=== PATIENT | male | born 1965 | race Caucasian/White ===

== ENCOUNTER 2019-02-17 19:51 | Inpatient (IN) | payer OTHER, SELFPAY ==
[2019-02-17 19:58] VITALS: BP 146/94; PULSE 90; RESP 18; TEMP 36.9; O2SAT 99; BMI 21.2
[2019-02-17] MEDS: ONDANSETRON 4 MG/2 ML INJ IV ×2 (21:01→22:47)
[2019-02-17 21:04] LABS: Add Manual Diff / Slide Review NO; Basophils Absolute Auto 100 /uL (0-100); Basophils Percent Auto 0.7 % (0-2); Eosinophils Absolute Auto 0 /uL (0-450); Eosinophils Percent Auto 0.6 % (2-4); Hematocrit 44.3 % (41-53); Hemoglobin 15.2 g/dL (13.5-17.5); Lymphocytes Absolute Auto 700 /uL (1100-4500); Lymphocytes Percent Auto 10.5 % (25-40); Mean Corpuscular HGB Conc 34.4 % (30-36); Mean Corpuscular Hemoglobin 30.9 PG (26-34); Mean Corpuscular Volume 89.7 fL (80-100); Monocytes Absolute Auto 800 /uL (0-900); Monocytes Percent Auto 11.5 % (3-14); Neutrophils Absolute Auto 5400 /uL (1500-7000); Neutrophils Percent Auto 76.7 % (50-75); Platelet Count 234 X10^3/uL (150-400); Red Blood Cell Count 4.94 X10^6/uL (4.5-5.9); White Blood Cell Count 7.1 X10^3/uL (4.5-11.0)
[2019-02-17 21:14] LABS: INR 1.2 (0.9-1.3); Prothrombin Time 13.6 SECONDS (10.1-12.7)
[2019-02-17 21:17] LABS: PTT Partial Thromboplastin Tim 33 SECONDS (26.4-36.2)
[2019-02-17 21:19] LABS: Alanine Aminotransferase 12 IU/L (21-72); Albumin 3.8 g/dL (3.5-5.0); Albumin Globulin Ratio 1.3 (1.0-2.8); Alkaline Phosphatase 99 U/L (38-126); Aspartate Aminotransferase 16 IU/L (17-59); BUN Creatinine Ratio 18.6 (6-22); Bilirubin Total 0.6 mg/dL (0.2-1.3); Blood Urea Nitrogen 13 mg/dL (9-20); Calcium 8.8 mg/dL (8.4-10.2); Carbon Dioxide 25 mmol/L (22-32); Chloride 97 mmol/L (98-107); Estimated Glomerular Filt Rate > 60.0 mL/min (>60); Globulin 2.9 g/dL (1.7-4.1); Glucose 100 mg/dL (70-100); HEMOLYSIS < 15 (0-50); Lipase 14 U/L (23-300); Potassium 3.5 mmol/L (3.4-5.1); Sodium 132 mmol/L (137-145); Total Protein 6.7 g/dL (6.3-8.2)
--- NOTE | 2019-02-17 22:03 | ED.ABDPAIN ---
HPI - Abdominal Pain General Chief Complaint: Abdominal Pain Stated Complaint: NOT WELL, SEVERE ABDOMINAL PAIN Time Seen by Provider: 02/17/19 20:00 Source: patient and family Mode of arrival: ambulatory Limitations: no limitations History of Present Illness HPI narrative: 54-year-old male nonsmoker with benign medical history presents with his significant other and a chief complaint of about a month and a half of gradually worsening generalized abdominal pain with decreased appetite an unplanned weight loss of 15 lb. He has increasing frequency and severity of pain which is generalized but more severe in the lower portions of his abdomen. This pain is worse with motion and improves with rest. He denies any fever or shaking chills. He has nausea but no significant vomiting. He states he is fairly convinced he has diverticulitis as he has a very strong history in his family though he has never had of colonoscopy MD complaint: abdominal pain Onset (ago): week(s) Related Data Home Medications Medication Instructions Recorded Confirmed No Known Home Medications 02/18/19 02/18/19 Allergies Allergy/AdvReac Type Severity Reaction Status Date / Time Penicillins Allergy Unknown Verified 02/17/19 20:04 Review of Systems Constitutional Denies chills, Denies fever(s), Denies lethargy and Denies weakness Eyes Denies change in vision, Denies eye discharge, Denies irritation and Denies loss of vision ENT Ears, Nose, Mouth, and Throat: Denies change in voice, Denies neck pain and Denies sore throat Cardiovascular Denies chest pain, Denies irregular heart rhythm, Denies lightheadedness, Denies palpitations, Denies dyspnea, Denies dyspnea on exertion and Denies orthopnea Respiratory Denies cough, Denies dyspnea, Denies dyspnea on exertion and Denies wheezing Gastrointestinal Gastrointestinal: Reports abdominal pain, Reports change in bowel habits, Denies diarrhea, Reports nausea and Denies vomiting Genitourinary Denies hematuria, Denies flank pain, Denies urinary incontinence and Denies urinary urgency Musculoskeletal Denies neck pain Integumentary/Breasts Denies pruritus, Denies erythema, Denies rash and Denies wounds Neurologic Denies confusion, Denies loss of vision and Denies weakness Psychiatric Denies anxiety, Denies confusion, Denies depression, Denies homicidal ideation and Denies suicidal ideation Endocrine Denies palpitations Hematologic/Lymphatic Denies easy bruising Allergic/Immunologic Denies wheezing PFSH Medical History Abnormal weight loss (Acute) Social History household members: spouse Smoking Status: Former smoker alcohol intake: former Social History household members: spouse Smoking Status: Former smoker alcohol intake: former Exam Narrative Exam Narrative: GENERAL: [54] year old patient appears stated age. Thin, unwell in appearance HEAD: Atraumatic. Normocephalic. EYES: Pupils equal round and reactive. Extraocular motions intact. No scleral icterus. No injection or drainage. ENT: Nose without bleeding, purulent drainage. Throat without erythema, tonsillar hypertrophy or exudate. Airway patent. NECK: Trachea midline. Non tender CARDIOVASCULAR: Regular rate and rhythm without murmurs, gallops, or rubs. RESPIRATORY: Clear to auscultation. Breath sounds equal bilaterally. No wheezes, rales, or rhonchi. GASTROINTESTINAL: Abdomen is generally tender and distended, questionable left lower quadrant mass EXTREMITIES: No edema or joint tenderness. BACK: Nontender without deformity or crepitance. No flank tenderness. NEURO: AOx3. SKIN: No rash or erythema of visible areas Initial Vital Signs Initial Vital Signs: Vital Signs Temperature 98.4 F 02/17/19 19:58 Pulse Rate 90 02/17/19 19:58 Respiratory Rate 18 02/17/19 19:58 Blood Pressure 146/94 H 02/17/19 19:58 Pulse Oximetry 99 02/17/19 19:58 Course Orders Ordered: ED Orders 02/17/19 22:06 CT abdomen pelvis w con Stat 02/18/19 Carcinoembryonic Antigen Stat 02/18/19 00:52 XR chest 1V Urgent 02/18/19 01:21 Consult to PICC Line RN Routine 02/18/19 01:22 Consult to Wound Care Routine 02/18/19 01:32 Education, smoking cessation ONGOING 02/18/19 02:42 Education, smoking cessation ONGOING Acetaminophen (Tylenol) 650 mg PO Q6HR PENDING SALE TO [facility] Last Admin: 02/18/19 06:15 Dose: Not Given Heparin Sodium (Porcine) (Heparin) 5,000 unit SUBCUT Q8HR VIOLETTE Last Admin: 02/18/19 06:24 Dose: 5,000 unit Hydromorphone HCl (Dilaudid) 0.5 mg IV Q4H PRN PRN Reason: Pain, Severe (7-10) Last Admin: 02/18/19 06:19 Dose: 0.5 mg Admin: 02/18/19 02:17 Dose: 0.5 mg Dextrose/Sodium Chloride (Dextrose 5%-0.9% Ns) 1,000 mls @ 100 mls/hr IV CONT VIOLETTE Last Admin: 02/18/19 02:25 Dose: 100 mls/hr Metronidazole (Flagyl) 500 mg in 100 mls @ 100 mls/hr IV Q8H VIOLETTE Ceftriaxone Sodium/Dextrose (Rocephin) 2 gm in 50 mls @ 100 mls/hr IV Q24H PENDING SALE TO [facility] Last Infusion: 02/18/19 04:44 Dose: 100 mls/hr Infusion: 02/18/19 02:27 Dose: 100 mls/hr Admin: 02/18/19 02:00 Dose: 100 mls/hr Ondansetron HCl (Zofran) 4 mg IV Q4HR PENDING SALE TO [facility] Last Admin: 02/18/19 04:56 Dose: 4 mg Discontinued Medications Sodium Chloride (Normal Saline 0.9%) 1,000 mls @ 1,000 mls/hr IV BOLUS ONE Stop: 02/17/19 23:23 Last Infusion: 02/18/19 01:45 Dose: 0 mls/hr Infusion: 02/18/19 00:00 Dose: 1,000 mls/hr Infusion: 02/17/19 22:48 Dose: 0 mls/hr Admin: 02/17/19 22:47 Dose: 1,000 mls/hr Metronidazole (Flagyl) 500 mg in 100 mls @ 100 mls/hr IV NOW ONE Stop: 02/18/19 01:45 Last Infusion: 02/18/19 04:46 Dose: 100 mls/hr Admin: 02/18/19 02:49 Dose: 100 mls/hr Ceftriaxone Sodium/Dextrose (Rocephin) 2 gm in 50 mls @ 100 mls/hr IV NOW ONE Stop: 02/18/19 01:15 Last Infusion: 02/18/19 04:44 Dose: 100 mls/hr Infusion: 02/18/19 01:55 Dose: 0 mls/hr Admin: 02/18/19 01:26 Dose: 100 mls/hr Ondansetron HCl (Zofran) 4 mg IV NOW ONE Stop: 02/17/19 20:58 Last Admin: 02/17/19 21:01 Dose: 4 mg Ondansetron HCl (Zofran) 4 mg IV NOW ONE Stop: 02/17/19 22:25 Last Admin: 02/17/19 22:47 Dose: 4 mg Pantoprazole Sodium (Protonix) 40 mg IV NOW ONE Stop: 02/17/19 22:25 Last Admin: 02/17/19 22:47 Dose: 40 mg Consultations Consultation #1: Called to general surgery upon receipt of imaging, he will see and evaluate patient at the bedside Vital Signs - 8 hr 02/18/19 01:30 02/18/19 02:05 02/18/19 06:00 Temperature 99.2 F 99.5 F Pulse Rate 81 76 88 Respiratory Rate 16 20 20 Blood Pressure 145/97 H 140/81 Blood Pressure [Right Arm] 155/101 H Pulse Oximetry 98 98 97 MDM - Abdominal Pain Lab Data Result diagrams: 02/17/19 20:55 02/17/19 20:55 Lab Results 02/17/19 02/17/19 02/17/19 Range/Units 20:55 20:55 20:55 WBC 7.1 (4.5-11.0) X10^3/uL RBC 4.94 (4.5-5.9) X10^6/uL Hgb 15.2 (13.5-17.5) g/dL Hct 44.3 (41-53) % MCV 89.7 (80-100) fL MCH 30.9 (26-34) PG MCHC 34.4 (30-36) % RDW 13.0 (11.6-14.8) % Plt Count 234 (150-400) X10^3/uL Neut % (Auto) 76.7 H (50-75) % Lymph % (Auto) 10.5 L (25-40) % [place] % (Auto) 11.5 (3-14) % Eos % (Auto) 0.6 L (2-4) % Baso % (Auto) 0.7 (0-2) % Neut # (Auto) 5400 (5414-3790) /uL Lymph # (Auto) 700 L (5713-6440) /uL [place] # (Auto) 800 (0-900) /uL Eos # (Auto) 0 (0-450) /uL Baso # (Auto) 100 (0-100) /uL PT 13.6 H (10.1-12.7) SECONDS INR 1.2 (0.9-1.3) APTT 33 (26.4-36.2) SECONDS Sodium 132 L (137-145) mmol/L Potassium 3.5 (3.4-5.1) mmol/L Chloride 97 L (98-107) mmol/L Carbon Dioxide 25 (22-32) mmol/L BUN 13 (9-20) mg/dL Creatinine 0.70 (0.66-1.25) mg/dL Estimated GFR > 60.0 (>60) mL/min BUN/Creatinine Ratio 18.6 (6-22) Glucose 100 (70-100) mg/dL Calcium 8.8 (8.4-10.2) mg/dL Total Bilirubin 0.6 (0.2-1.3) mg/dL AST 16 L (17-59) IU/L ALT 12 L (21-72) IU/L Alkaline Phosphatase 99 (38-126) U/L Total Protein 6.7 (6.3-8.2) g/dL Albumin 3.8 (3.5-5.0) g/dL Globulin 2.9 (1.7-4.1) g/dL Albumin/Globulin Ratio 1.3 (1.0-2.8) Lipase 14 L (23-300) U/L Carcinoembryonic Ag (0.1-3.0) ng/mL 02/17/19 Range/Units 20:55 WBC (4.5-11.0) X10^3/uL RBC (4.5-5.9) X10^6/uL Hgb (13.5-17.5) g/dL Hct (41-53) % MCV (80-100) fL MCH (26-34) PG MCHC (30-36) % RDW (11.6-14.8) % Plt Count (150-400) X10^3/uL Neut % (Auto) (50-75) % Lymph % (Auto) (25-40) % [place] % (Auto) (3-14) % Eos % (Auto) (2-4) % Baso % (Auto) (0-2) % Neut # (Auto) (7572-1482) /uL Lymph # (Auto) (1112-1209) /uL [place] # (Auto) (0-900) /uL Eos # (Auto) (0-450) /uL Baso # (Auto) (0-100) /uL PT (10.1-12.7) SECONDS INR (0.9-1.3) APTT (26.4-36.2) SECONDS Sodium (137-145) mmol/L Potassium (3.4-5.1) mmol/L Chloride (98-107) mmol/L Carbon Dioxide (22-32) mmol/L BUN (9-20) mg/dL Creatinine (0.66-1.25) mg/dL Estimated GFR (>60) mL/min BUN/Creatinine Ratio (6-22) Glucose (70-100) mg/dL Calcium (8.4-10.2) mg/dL Total Bilirubin (0.2-1.3) mg/dL AST (17-59) IU/L ALT (21-72) IU/L Alkaline Phosphatase (38-126) U/L Total Protein (6.3-8.2) g/dL Albumin (3.5-5.0) g/dL Globulin (1.7-4.1) g/dL Albumin/Globulin Ratio (1.0-2.8) Lipase (23-300) U/L Carcinoembryonic Ag 4.5 H (0.1-3.0) ng/mL Point of care testing: Point of Care Testing Glucose POC 110 Discharge Plan Departure Patient Disposition: Admitted As Inpatient Clinical Impression: Large bowel obstruction Discharge Date/Time: 02/18/19 02:05 Interventions: ED Discharge Assessment Last Done: 02/18/19 02:08 Admit Date/Time: 02/18/19 00:19 Admit Provider: Cal Tavera
--- NOTE | 2019-02-17 22:06 | DI.CT.S_ITS ---
PROCEDURE: CT ABDOMEN PELVIS W CON INDICATIONS: severe abdominal pain TECHNIQUE: After the administration of intravenous contrast, 5 mm thick sections acquired from the diaphragm to the symphysis. 5 mm coronal and sagittal reformats were acquired. For radiation dose reduction, the following was used: automated exposure control, adjustment of mA and/or kV according to patient size. COMPARISON: None. FINDINGS: Image quality: Excellent. ABDOMEN: Lung bases: Lung bases are clear. Heart size is normal. Solid organs: Liver is normal in size and enhancement. Gallbladder is unremarkable. Biliary system is non dilated. Pancreas enhances normally. Spleen is normal in size and enhancement. No adrenal nodules. Kidneys demonstrate normal size and enhancement, without hydronephrosis. Peritoneum and bowel: Diffusely dilated loops of fluid filled bowel involving both small bowel and colon. There is a short segment of mild circumferential small bowel wall thickening noted in the upper abdomen just to the left of midline (Professor Of Biochemistry image seen on coronal image 19, series 4). There is also a segment of moderate circumferential wall thickening of the distal sigmoid colon near the rectosigmoid junction. A business development representative image is seen on axial image 72, series 2. The colon is dilated proximal to this segment and decompressed distally. Additionally, the appendix is mildly dilated measuring 1.1 cm in diameter with surrounding periappendiceal fluid. No evidence for extraluminal free air or organized fluid collection. Nodes and vessels: No retroperitoneal or mesenteric adenopathy by size criteria. Aorta and inferior vena cava are normal in size. Miscellaneous: No ventral hernias. PELVIS: Genitourinary: Bladder wall thickness is normal. Miscellaneous: No inguinal hernias or adenopathy. Bones: No suspicious bony lesions. No vertebral body compression fractures. IMPRESSION: 1. High grade distal bowel obstruction likely at the level of the distal sigmoid colon where there is a segment of luminal narrowing secondary to moderately thickened sigmoid colon that appears slightly irregular but circumferentially thickened. There is associated moderate colonic and small bowel dilatation. This segment of presumed distal sigmoid colon is in close proximity to the reproductive organs. However, sigmoid colon etiology is favored. Findings may be related to acute inflammatory/infectious process although underlying neoplastic etiology not excluded. Recommend direct visualization after resolution of acute symptoms. 2. Short segment of mildly thickened small bowel in the upper abdomen possibly related to peristalsis and incomplete distention versus focal thickening from inflammatory/infectious etiology. 3. The appendix is dilated with periappendiceal fluid. Concurrent acute appendicitis not excluded. Findings were discussed with Kaye Dasilva RN at 2338 hours PST by the overnight radiologist. No significant discrepancy with the night shift supervisor radiology preliminary report. Dictated by: Godfrey Jenkins M.D. on 02/18/2019 at 8:33 Approved by: Godfrey Jenkins M.D. on 02/18/2019 at 9:16
[2019-02-17 22:30] VITALS: BP 145/91; PULSE 76; O2SAT 96
[2019-02-17] MEDS: SODIUM CHLORIDE 0.9% 1,000 ML 1000 ML IV (22:47)
[2019-02-17] MEDS: PANTOPRAZOLE 40 MG VIAL IV (22:47)
[2019-02-18] VITALS (25 sets, daily range): BP systolic 134–157; BP diastolic 70–101; PULSE 73–115; RESP 13–20; TEMP 36.5–37.5; O2SAT 93–98; BMI 21.2; BMI 19.3
--- NOTE | 2019-02-18 00:25 | PC.NURSE ---
surgeon at bedside.
--- NOTE | 2019-02-18 00:52 | DI.RAD.S_ITS ---
PROCEDURE: XR CHEST 1V INDICATIONS: NG placement TECHNIQUE: One view of the chest was acquired. COMPARISON: None. FINDINGS: Surgical changes and devices: Esophagogastric tube positioning normal. Lungs and pleura: Lungs are clear. No pleural effusions or pneumothorax. Mediastinum: Mediastinal contours appear normal. Heart size is normal. Bones and chest wall: No suspicious bony lesions. Overlying soft tissues appear unremarkable. IMPRESSION: Esophagogastric tube positioning normal, small bowel distention is present over the visualized abdomen included on this study. No chest abnormality seen. Dictated by: Royal Bar M.D. on 02/18/2019 at 8:59 Approved by: Royal Bar M.D. on 02/18/2019 at 8:59
--- NOTE | 2019-02-18 00:53 | PM.HP.1 ---
History of Present Illness Date Patient Seen: 02/18/19 Time Patient Seen: 00:56 Chief complaint: NOT WELL, SEVERE ABDOMINAL PAIN Narrative: 54-year-old man with strong family history of diverticular disease, no family history of colorectal cancers, never had a colonoscopy in the past -he now presents with 6 weeks of intermittent but progressive mid abdominal pain with nausea and vomiting. Typically the pain would last several days and then spontaneously remit however patient never felt fully well. There is associated anorexia and unintentional weight loss of 15-20 lb. In this setting 8 days ago patient began to have significant worsening of his mid abdominal pain with again nausea and vomiting. He became progressively more distended his bowel movements turned from thin caliber formed stool to liquid stool. This evening he presented to the hospital with worsening of his pain, worsening fatigue, as well as significant nausea. Patient denies having blood in his stool at any time in the recent past. He has not had a liquid bowel movement in a day, not passed flatus in several days. In the emergency department he was found to have a white blood cell count of 7.1, hematocrit of 44.2, creatinine of 0.7, CT scan of the abdomen and pelvis demonstrated a long sigmoid segment of masslike colonic thickening, adjacent diverticulosis, significant dilation of the large bowel without market cecal dilation. The appendix is thin walled but with dilation to 1 cm. Overall patient feels poor Patient History Medical History (Updated 02/18/19 @ 01:02 by Cal Tavera MD) Abnormal weight loss (Acute) Family & Social History Social History: Patient lives on [facility] Occasionally smokes marijuana No tobacco smoke No alcohol Mother and father with history of diverticulosis Meds Allergies Allergy/AdvReac Type Severity Reaction Status Date / Time Penicillins Allergy Unknown Verified 02/17/19 20:04 Review of Systems Constitutional Constitutional: Denies fever(s) Eyes Eyes: Denies bulging eyes ENT Ears, Nose, Mouth, and Throat: No lip swelling Cardiovascular Cardiovascular: Denies generalize swelling Respiratory Respiratory: Denies stridor Gastrointestinal Gastrointestinal: Denies coffee ground emesis Musculoskeletal Musculoskeletal: Denies loss of height Integumentary/Breasts Skin/Breast: Denies wounds Neurologic Neurologic: Denies abnormal speech and Denies confusion Psychiatric Psychiatric: Denies confusion Endocrine Endocrine: Denies deepening of the voice Hematologic/Lymphatic Hematologic/Lymphatic: Denies lymphadenopathy Allergic/Immunologic Allergic/Immunologic: Denies lip swelling Exam Vital Signs (past 8 hours): - 02/17/19 19:58 02/17/19 22:30 Temperature 98.4 F Pulse Rate 90 76 Respiratory Rate 18 Blood Pressure 146/94 H Blood Pressure [Right Arm] 145/91 H Pulse Oximetry 99 96 Oxygen Delivery Method Room Air Narrative Exam Narrative: Notably thin man with temporal wasting, thenar eminence wasting Const General: cooperative Orientation: alert HENME Head: normal to inspection Nose: nares normal Mouth: oral mucosae normal and lip normal Eyes Eyelids: eyelids normal Conjunctivae: conjunctivae normal Sclera: sclerae normal Neck Neck: supple and other (No thyromegally) Chest Chest: other (LCTAB , regular respiratory effort) Cardio Rhythm: regular rhythm Heart Sounds: S1 normal, S2 normal, no gallops, no murmurs and no rubs GI Other: Abdomen is notably distended, no surgical scars, large to high-pitched bowel sounds, tympanitic. Nontender to percussion, tender over left lower quadrant, minimally tender over right side of abdomen. I can subtly detect a left lower quadrant mass Skin General: no rashes or lesions noted Neuro General: alert and awake Psych Appearance: grossly normal Affect: normal affect Objective Labs Result Diagrams: 02/17/19 20:55 02/17/19 20:55 Labs: Laboratory Results - last 24 hr 02/17/19 02/17/19 02/17/19 20:55 20:55 20:55 WBC 7.1 RBC 4.94 Hgb 15.2 Hct 44.3 MCV 89.7 MCH 30.9 MCHC 34.4 RDW 13.0 Plt Count 234 Neut % (Auto) 76.7 H Lymph % (Auto) 10.5 L [place] % (Auto) 11.5 Eos % (Auto) 0.6 L Baso % (Auto) 0.7 Neut # (Auto) 5400 Lymph # (Auto) 700 L [place] # (Auto) 800 Eos # (Auto) 0 Baso # (Auto) 100 PT 13.6 H INR 1.2 APTT 33 Sodium 132 L Potassium 3.5 Chloride 97 L Carbon Dioxide 25 BUN 13 Creatinine 0.70 Estimated GFR > 60.0 BUN/Creatinine Ratio 18.6 Glucose 100 Calcium 8.8 Total Bilirubin 0.6 AST 16 L ALT 12 L Alkaline Phosphatase 99 Total Protein 6.7 Albumin 3.8 Globulin 2.9 Albumin/Globulin Ratio 1.3 Lipase 14 L Assessment & Plan Assessment & Plan narrative: 54-year-old man presents with large bowel obstruction from diverticular stricture versus is colorectal cancer -I favor the former given the patient's strong family history, on CT scan the long segment of apparently inflamed colon. On CT scan his cecum is not significantly dilated and he does not have significant right lower quadrant tenderness -for this reason he is at low risk of cecal perforation in the near future. His obstruction appears to be near complete however. Appendiceal dilation without wall thickening likely a consequence of obstruction rather than acute appendicitis Plan will be to workup obstructing sigmoid colon mass with flexible sigmoidoscopy followed by resection this admission Plan: Admit to surgery multi Modal pain control NG tube decompression Ceftriaxone/metronidazole for any component of acute diverticulitis PICC line anticipate will need TPN in the setting of severe protein calorie malnutrition and projected length of hospitalization Endoscopy tomorrow -consent obtained
[2019-02-18] MEDS: CEFTRIAXONE 2 GM/50 ML FROZ.PIGGY IV ×2 (01:26→02:00)
[2019-02-18 02:05] LABS: Carcinoembryonic Antigen 4.5 ng/mL (0.1-3.0)
[2019-02-18] MEDS: HYDROMORPHONE 0.5 MG INJ IV ×3 (02:17→10:16)
[2019-02-18] MEDS: DEXTROSE 5%-0.9% NS 1,000 ML 100 ML IV (02:25)
[2019-02-18] MEDS: metroNIDAZOLE 500 MG/100 ML PIGGYBACK 100 MG IV ×4 (02:49→20:14)
--- NOTE | 2019-02-18 03:52 | PC.ADMIT ---
Safe hand off from [facility]. Pt arrived via stretcher on unit at 0205. Pt denies nausea, but has had intermittent abdominal pain. Pt was medicated w/ dilaudid 0.5mg at 0215. Pt bowel tones are hyperactive, his abdomen is bloated and he has constipation and cramping and isn't passing flatus. Pt's VSS, lung sound are clear. Pt has NG tube in right nare, drainage is greenish and clear. Pt was educated about call light and it is within reach. Onel [address] RD Admission Note: The patient,CRISTOPHER SRINIVASAN,54 y/o, was given written information regarding hospital policies, unit procedures and contact persons. Patient's smoking status: Former smoker. Vital Signs - 8 hr 02/17/19 19:58 02/17/19 22:30 02/18/19 01:30 Temperature 98.4 F Pulse Rate 90 76 81 Respiratory Rate 18 16 Blood Pressure 146/94 H Blood Pressure [Right Arm] 145/91 H 155/101 H Pulse Oximetry 99 96 98 02/18/19 02:05 Temperature 99.2 F Pulse Rate 76 Respiratory Rate 20 Blood Pressure 145/97 H Blood Pressure [Right Arm] Pulse Oximetry 98
[2019-02-18] MEDS: ONDANSETRON 4 MG/2 ML INJ IV (04:56)
[2019-02-18] MEDS: HEPARIN 5,000 UNIT/ML VIAL 5000 UNIT SUBCUT (06:24)
--- NOTE | 2019-02-18 06:47 | ED_ITS ---
HPI - Abdominal Pain General Chief Complaint: Abdominal Pain Stated Complaint: NOT WELL, SEVERE ABDOMINAL PAIN Time Seen by Provider: 02/17/19 20:00 Source: patient and family Mode of arrival: ambulatory Limitations: no limitations History of Present Illness HPI narrative: 54-year-old male nonsmoker with benign medical history presents with his significant other and a chief complaint of about a month and a half of gradually worsening generalized abdominal pain with decreased appetite an unplanned weight loss of 15 lb. He has increasing frequency and severity of pain which is generalized but more severe in the lower portions of his abdomen. This pain is worse with motion and improves with rest. He denies any fever or shaking chills. He has nausea but no significant vomiting. He states he is fairly convinced he has diverticulitis as he has a very strong history in his family though he has never had of colonoscopy MD complaint: abdominal pain Onset (ago): week(s) Related Data Home Medications Medication Instructions Recorded Confirmed No Known Home Medications 02/18/19 02/18/19 Allergies Allergy/AdvReac Type Severity Reaction Status Date / Time Penicillins Allergy Unknown Verified 02/17/19 20:04 Review of Systems Constitutional Denies chills, Denies fever(s), Denies lethargy and Denies weakness Eyes Denies change in vision, Denies eye discharge, Denies irritation and Denies loss of vision ENT Ears, Nose, Mouth, and Throat: Denies change in voice, Denies neck pain and Denies sore throat Cardiovascular Denies chest pain, Denies irregular heart rhythm, Denies lightheadedness, Denies palpitations, Denies dyspnea, Denies dyspnea on exertion and Denies orthopnea Respiratory Denies cough, Denies dyspnea, Denies dyspnea on exertion and Denies wheezing Gastrointestinal Gastrointestinal: Reports abdominal pain, Reports change in bowel habits, Denies diarrhea, Reports nausea and Denies vomiting Genitourinary Denies hematuria, Denies flank pain, Denies urinary incontinence and Denies urinary urgency Musculoskeletal Denies neck pain Integumentary/Breasts Denies pruritus, Denies erythema, Denies rash and Denies wounds Neurologic Denies confusion, Denies loss of vision and Denies weakness Psychiatric Denies anxiety, Denies confusion, Denies depression, Denies homicidal ideation and Denies suicidal ideation Endocrine Denies palpitations Hematologic/Lymphatic Denies easy bruising Allergic/Immunologic Denies wheezing PFSH Medical History Abnormal weight loss (Acute) Social History household members: spouse Smoking Status: Former smoker alcohol intake: former Social History household members: spouse Smoking Status: Former smoker alcohol intake: former Exam Narrative Exam Narrative: GENERAL: [54] year old patient appears stated age. Thin, unwell in appearance HEAD: Atraumatic. Normocephalic. EYES: Pupils equal round and reactive. Extraocular motions intact. No scleral icterus. No injection or drainage. ENT: Nose without bleeding, purulent drainage. Throat without erythema, tonsillar hypertrophy or exudate. Airway patent. NECK: Trachea midline. Non tender CARDIOVASCULAR: Regular rate and rhythm without murmurs, gallops, or rubs. RESPIRATORY: Clear to auscultation. Breath sounds equal bilaterally. No wheezes, rales, or rhonchi. GASTROINTESTINAL: Abdomen is generally tender and distended, questionable left lower quadrant mass EXTREMITIES: No edema or joint tenderness. BACK: Nontender without deformity or crepitance. No flank tenderness. NEURO: AOx3. SKIN: No rash or erythema of visible areas Initial Vital Signs Initial Vital Signs: Vital Signs Temperature 98.4 F 02/17/19 19:58 Pulse Rate 90 02/17/19 19:58 Respiratory Rate 18 02/17/19 19:58 Blood Pressure 146/94 H 02/17/19 19:58 Pulse Oximetry 99 02/17/19 19:58 Course Orders Ordered: ED Orders 02/17/19 22:06 CT abdomen pelvis w con Stat 02/18/19 Carcinoembryonic Antigen Stat 02/18/19 00:52 XR chest 1V Urgent 02/18/19 01:21 Consult to PICC Line RN Routine 02/18/19 01:22 Consult to Wound Care Routine 02/18/19 01:32 Education, smoking cessation ONGOING 02/18/19 02:42 Education, smoking cessation ONGOING Acetaminophen (Tylenol) 650 mg PO Q6HR [facility] Last Admin: 02/18/19 06:15 Dose: Not Given Heparin Sodium (Porcine) (Heparin) 5,000 unit SUBCUT Q8HR [facility] Last Admin: 02/18/19 06:24 Dose: 5,000 unit Hydromorphone HCl (Dilaudid) 0.5 mg IV Q4H PRN PRN Reason: Pain, Severe (7-10) Last Admin: 02/18/19 06:19 Dose: 0.5 mg Admin: 02/18/19 02:17 Dose: 0.5 mg Dextrose/Sodium Chloride (Dextrose 5%-0.9% Ns) 1,000 mls @ 100 mls/hr IV CONT [facility] Last Admin: 02/18/19 02:25 Dose: 100 mls/hr Metronidazole (Flagyl) 500 mg in 100 mls @ 100 mls/hr IV Q8H [facility] Ceftriaxone Sodium/Dextrose (Rocephin) 2 gm in 50 mls @ 100 mls/hr IV Q24H [facility] Last Infusion: 02/18/19 04:44 Dose: 100 mls/hr Infusion: 02/18/19 02:27 Dose: 100 mls/hr Admin: 02/18/19 02:00 Dose: 100 mls/hr Ondansetron HCl (Zofran) 4 mg IV Q4HR [facility] Last Admin: 02/18/19 04:56 Dose: 4 mg Discontinued Medications Sodium Chloride (Normal Saline 0.9%) 1,000 mls @ 1,000 mls/hr IV BOLUS ONE Stop: 02/17/19 23:23 Last Infusion: 02/18/19 01:45 Dose: 0 mls/hr Infusion: 02/18/19 00:00 Dose: 1,000 mls/hr Infusion: 02/17/19 22:48 Dose: 0 mls/hr Admin: 02/17/19 22:47 Dose: 1,000 mls/hr Metronidazole (Flagyl) 500 mg in 100 mls @ 100 mls/hr IV NOW ONE Stop: 02/18/19 01:45 Last Infusion: 02/18/19 04:46 Dose: 100 mls/hr Admin: 02/18/19 02:49 Dose: 100 mls/hr Ceftriaxone Sodium/Dextrose (Rocephin) 2 gm in 50 mls @ 100 mls/hr IV NOW ONE Stop: 02/18/19 01:15 Last Infusion: 02/18/19 04:44 Dose: 100 mls/hr Infusion: 02/18/19 01:55 Dose: 0 mls/hr Admin: 02/18/19 01:26 Dose: 100 mls/hr Ondansetron HCl (Zofran) 4 mg IV NOW ONE Stop: 02/17/19 20:58 Last Admin: 02/17/19 21:01 Dose: 4 mg Ondansetron HCl (Zofran) 4 mg IV NOW ONE Stop: 02/17/19 22:25 Last Admin: 02/17/19 22:47 Dose: 4 mg Pantoprazole Sodium (Protonix) 40 mg IV NOW ONE Stop: 02/17/19 22:25 Last Admin: 02/17/19 22:47 Dose: 40 mg Consultations Consultation #1: Called to general surgery upon receipt of imaging, he will see and evaluate patient at the bedside Vital Signs - 8 hr 02/18/19 01:30 02/18/19 02:05 02/18/19 06:00 Temperature 99.2 F 99.5 F Pulse Rate 81 76 88 Respiratory Rate 16 20 20 Blood Pressure 145/97 H 140/81 Blood Pressure [Right Arm] 155/101 H Pulse Oximetry 98 98 97 MDM - Abdominal Pain Lab Data Result diagrams: 02/17/19 20:55 02/17/19 20:55 Lab Results 02/17/19 02/17/19 02/17/19 Range/Units 20:55 20:55 20:55 WBC 7.1 (4.5-11.0) X10^3/uL RBC 4.94 (4.5-5.9) X10^6/uL Hgb 15.2 (13.5-17.5) g/dL Hct 44.3 (41-53) % MCV 89.7 (80-100) fL MCH 30.9 (26-34) PG MCHC 34.4 (30-36) % RDW 13.0 (11.6-14.8) % Plt Count 234 (150-400) X10^3/uL Neut % (Auto) 76.7 H (50-75) % Lymph % (Auto) 10.5 L (25-40) % [place] % (Auto) 11.5 (3-14) % Eos % (Auto) 0.6 L (2-4) % Baso % (Auto) 0.7 (0-2) % Neut # (Auto) 5400 (8870-5038) /uL Lymph # (Auto) 700 L (5204-7790) /uL [place] # (Auto) 800 (0-900) /uL Eos # (Auto) 0 (0-450) /uL Baso # (Auto) 100 (0-100) /uL PT 13.6 H (10.1-12.7) SECONDS INR 1.2 (0.9-1.3) APTT 33 (26.4-36.2) SECONDS Sodium 132 L (137-145) mmol/L Potassium 3.5 (3.4-5.1) mmol/L Chloride 97 L (98-107) mmol/L Carbon Dioxide 25 (22-32) mmol/L BUN 13 (9-20) mg/dL Creatinine 0.70 (0.66-1.25) mg/dL Estimated GFR > 60.0 (>60) mL/min BUN/Creatinine Ratio 18.6 (6-22) Glucose 100 (70-100) mg/dL Calcium 8.8 (8.4-10.2) mg/dL Total Bilirubin 0.6 (0.2-1.3) mg/dL AST 16 L (17-59) IU/L ALT 12 L (21-72) IU/L Alkaline Phosphatase 99 (38-126) U/L Total Protein 6.7 (6.3-8.2) g/dL Albumin 3.8 (3.5-5.0) g/dL Globulin 2.9 (1.7-4.1) g/dL Albumin/Globulin Ratio 1.3 (1.0-2.8) Lipase 14 L (23-300) U/L Carcinoembryonic Ag (0.1-3.0) ng/mL 02/17/19 Range/Units 20:55 WBC (4.5-11.0) X10^3/uL RBC (4.5-5.9) X10^6/uL Hgb (13.5-17.5) g/dL Hct (41-53) % MCV (80-100) fL MCH (26-34) PG MCHC (30-36) % RDW (11.6-14.8) % Plt Count (150-400) X10^3/uL Neut % (Auto) (50-75) % Lymph % (Auto) (25-40) % [place] % (Auto) (3-14) % Eos % (Auto) (2-4) % Baso % (Auto) (0-2) % Neut # (Auto) (5296-7775) /uL Lymph # (Auto) (3892-4144) /uL [place] # (Auto) (0-900) /uL Eos # (Auto) (0-450) /uL Baso # (Auto) (0-100) /uL PT (10.1-12.7) SECONDS INR (0.9-1.3) APTT (26.4-36.2) SECONDS Sodium (137-145) mmol/L Potassium (3.4-5.1) mmol/L Chloride (98-107) mmol/L Carbon Dioxide (22-32) mmol/L BUN (9-20) mg/dL Creatinine (0.66-1.25) mg/dL Estimated GFR (>60) mL/min BUN/Creatinine Ratio (6-22) Glucose (70-100) mg/dL Calcium (8.4-10.2) mg/dL Total Bilirubin (0.2-1.3) mg/dL AST (17-59) IU/L ALT (21-72) IU/L Alkaline Phosphatase (38-126) U/L Total Protein (6.3-8.2) g/dL Albumin (3.5-5.0) g/dL Globulin (1.7-4.1) g/dL Albumin/Globulin Ratio (1.0-2.8) Lipase (23-300) U/L Carcinoembryonic Ag 4.5 H (0.1-3.0) ng/mL Point of care testing: Point of Care Testing Glucose POC 110 Discharge Plan Departure Patient Disposition: Admitted As Inpatient Clinical Impression: Large bowel obstruction Discharge Date/Time: 02/18/19 02:05 Interventions: ED Discharge Assessment Last Done: 02/18/19 02:08 Admit Date/Time: 02/18/19 00:19 Admit Provider: Cal Tavera
--- NOTE | 2019-02-18 09:44 | PM.PREOP ---
Pre-operative Note Interval Note History & Physical reviewed/Exam performed by Physician: Yes Changes to H&P: Yes H&P completed within 30 days and has changed as indicated here:: Patient seen by me in reexamined. Reviewed his history and physicals. Will proceed to proctoscopy but will also probably require diversion. We will assess intraoperatively and if I feel we can remove this mass I will but I sunk [place] 6 backed from what I see on CT scan that he had would be best served by diversion and preoperative/aviva adjuvant chemotherapy and subsequent resection. It is difficult to tell how big this tumor is but it seems to be a segment that is fairly long. I do not think it prudent to delay some kind of procedure to relieve his obstructive process given the size of his colon at this time. I have discussed the operation with the patient including risks of bleeding infection hernia including ostomy hernia. He understands that there are strong chance that we will be simply diverting him and doing a proctoscopy. All questions were answered.
--- NOTE | 2019-02-18 11:10 | PC.NURSE ---
1045 Pt gone for surgery via bed. Family at bedside.
[2019-02-18] MEDS: levoFLOXacin 500 MG/100 ML PIGGYBACK 100 MG IV (12:14)
[2019-02-18] MEDS: LACTATED RINGERS 1,000 ML 42 ML IV ×3 (13:05→15:50)
--- NOTE | 2019-02-18 14:51 | CM.DANOTE ---
DCP Brief Note Patient is a 54 year old male who was admitted on 02/18/19 for Large Bowel Obstruction. Pt has Self Pay for insurance and his PCP is not listed but pt [facility] EMR was reviewed. Per MD, pt scheduled for surgery today for resection and possible colostomy with potential for PICC placement and NG tube. Per RN, pt off the floor as of this morning for surgery and as of 1499 pt still not back to Acute Care. 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 Admission Counselor has a call into pt's spouse to get specific information on the health care plan to document in the computer. Plan: SW to follow closely in the morning for bedside assessment to determine pt's d/c planning needs and pt's insurance could be a barrier to accessing some resources for medical support after discharge. CATIE Calvillo
[2019-02-18] MEDS: HYDROMORPHONE 2 MG INJ 0.25 MG IV ×10 (15:38→16:42)
--- NOTE | 2019-02-18 15:40 | PM.OP.1 ---
Operative Date/Time/Diagnoses Date of procedure: 02/18/19 Time of procedure: 15:19 Pre-op diagnosis: Large bowel obstruction secondary to tumor in the region the distal sigmoid possibly involving the rectum. Post-op diagnosis: same Procedure & Clinicians Procedure: Rigid proctoscopy. Laparotomy with diversion of descending colon with a loop colostomy and repair of an enterotomy and a flexible sigmoidoscopy. Same procedure as scheduled: Yes Indications: Complete large bowel obstruction and based on CT caused by large tumor in the distal sigmoid rectal area Surgeon: Ambrose Parrish Asset Liability Analyst: Nigel Azevedo Anesthesia Type: General Operative Notes Findings: Large amount of gas and stool in the small intestine and large intestine. Large to fixed mass in the left lower quadrant with adherent small bowel. Large intestine appeared to be completely obstructed with inability to actually see the tumor due to whirling and obstruction of the colon at about 35 cm from the anal verge. Inadvertent enterotomy made in the small intestine due to its friability. This was primarily closed in 2 layers. Closure Type: primary Specimen(s): none sent Prosthetic devices, grafts, tissues, transplants, or devices: None Estimated Blood Loss (mL): 50 Blood products transfused: none Procedure in detail: The patient was placed supine on the operating room table and underwent general endotracheal anesthesia. He was placed in low lithotomy. Digital exam of the rectum revealed liquid stool. There was no palpable mass. It I have reviewed proctoscope was inserted 15 cm. There was a large amount of stool that had to be evacuated but I could not get above this level. I could not see tumor. Scope was removed and we decided to proceed with the lap brought to me. The patient was prepped and draped in the usual fashion. Vertical midline incision was made in the mid abdomen carried into the peritoneal cavity on examination there was a large fixed mass in left lower quadrant with adherent small bowel. Ache be visualized due to the surrounding structures over it. We divided the attachments of the descending and upper sigmoid from the lateral abdominal wall. This was done with great difficulty due to the bowel distension. We chose a point for the colon to come up to the abdominal wall which was slightly above and lateral to the area marked preoperatively by the ostomy nurse. A circular incision was made in the scan a cruciate incision in the anterior rectus fascia and another in the posterior rectus should fascia. The opening was dilated and the bowel delivered full thickness through the opening. This was facilitated by the use of a Fabricio that was placed under the bowel through the mesentery. The small bowel was reinserted into the abdomen in so doing we noticed an enterotomy in the small bowel that appeared to be brand new and was unclear what had caused it. The opening was closed with a running 3 0 Vicryl and an outer layer of vertical mattress 3 0 silk. The repair was tested and there was no leak and the bowel was widely patent. The midline was closed with a running 1. Maxon loop suture. The skin was closed with tristen. Wound was irrigated prior to closure. We then attempted to mature the ostomy. I placed a red rubber under it in order to support it and then open the ostomy transversely and fix the wall to the skin edge. At completion however there seemed to be a lot of edema and distortion of the ostomy therefore we slid a more rigid bar under the intestine bringing it back up through the skin opening as it had began to retract. We opened the skin opening slightly and then remit sure the ostomy using interrupted 3 0 Vicryl sutures. It appeared much healthier and we were able to digitalize proximally and distally. Bag was placed and a dressing applied to the midline. We then turned our attention back to the distal colon and attempted to get a biopsy again this time using a flexible scope. The scope was able to be advanced slowly through the distal rectum in sigmoid and we reached an area about 35 cm from the anal verge where it almost had a world appearance and there was no visible opening I could not find any way to get through this narrowed area so I abandoned the procedure. I did note that the patient had diverticulosis below this. No other lesions were seen distal. The scope was removed the patient was awakened, extubated and taken recovery area in good condition. There no apparent complications other than the inadvertent enterotomy. Complications: other (Enterotomy of friable small bowel) Condition: stable Disposition: PACU
--- NOTE | 2019-02-18 15:51 | SUR.PHASEI ---
NG to 100mmhg intermittent per vvo by Dr. Parrish. No output noted. Blue port and NG tube flushed with air. No output noted.
--- NOTE | 2019-02-18 16:18 | SUR.PHASEI ---
Dr. Parrish changed the NG tube. Tube marked and taped. No output noted.
--- NOTE | 2019-02-18 16:32 | SUR.PHASEI ---
stoma dark, red.
--- NOTE | 2019-02-18 16:57 | SUR.PHASEI ---
Resumed care. Pt reported 6/10 pain.
--- NOTE | 2019-02-18 17:19 | SUR.PHASEI ---
Report called to [facility]
--- NOTE | 2019-02-18 17:37 | SUR.PHASEI ---
Dr. Azevedo came to evaluate patient. Discussed HR variable from 100-120. BP 147/96. Emptied 1225 from hartley. Inspected dressings and colostomy. Also, discussed CBG 162. Will continue to monitor per MD. No new orders. Pt transferred to the floor. VS similar to PACU. Family present. Drsg and colostomy checked. IVs saline locked x2.
[2019-02-18] MEDS: LACTATED RINGERS 1,000 ML 140 ML IV (17:58)
[2019-02-18] MEDS: MORPHINE 4 MG/ML INJ IV ×2 (17:59→22:01)
[2019-02-18] MEDS: KETOROLAC 15 MG/ML VIAL IV (18:30)
--- NOTE | 2019-02-18 19:46 | PC.NURSE ---
Addendum entered by Justa Subramanian R.N. 02/18/19 23:06: SCD's on throughout shift. Original Note: Shift [id number] Report received from PACU; pt. to floor about 1730. A&Ox3. Tachycardic and hypertensive (both reported to surgeon in PACU). Pain /10. No c/o nausea. NG tube to intermittent suction. Family at bedside. Dr. Azevedo at bedside approximately 1935. Discussed pain management, vital signs, and operative findings. No new orders.
[2019-02-19] VITALS (10 sets, daily range): BP systolic 121–139; BP diastolic 75–93; PULSE 86–104; RESP 15–18; TEMP 36.5–37.5; O2SAT 95–96
[2019-02-19] MEDS: CEFTRIAXONE 1 GM/50 ML FROZ.PIGGY IV ×3 (00:30→23:41)
[2019-02-19] MEDS: metroNIDAZOLE 500 MG/100 ML PIGGYBACK 100 MG IV ×4 (02:19→20:16)
[2019-02-19] MEDS: MORPHINE 4 MG/ML INJ IV ×5 (02:20→16:11)
[2019-02-19] MEDS: LACTATED RINGERS 1,000 ML 140 ML IV ×3 (02:20→23:34)
--- NOTE | 2019-02-19 05:28 | PC.NURSE ---
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 No measurable output, but there is active drainage in proximal tubing. Pt c/o 02/14 abd pain post-operatively. RN morphine q4h and PRN toradol q6h given with good effect. Provided education to patient and family regarding pain management goal and medications. Stoma is dark red and with little serosanguinous drainage in ostomy.
[2019-02-19 06:02] LABS: Add Manual Diff / Slide Review NO; Basophils Absolute Auto 0 /uL (0-100); Basophils Percent Auto 0.3 % (0-2); Eosinophils Absolute Auto 0 /uL (0-450); Eosinophils Percent Auto 0.6 % (2-4); Hematocrit 42.9 % (41-53); Hemoglobin 14.8 g/dL (13.5-17.5); Lymphocytes Absolute Auto 800 /uL (1100-4500); Lymphocytes Percent Auto 12.4 % (25-40); Mean Corpuscular HGB Conc 34.5 % (30-36); Mean Corpuscular Hemoglobin 30.5 PG (26-34); Mean Corpuscular Volume 88.5 fL (80-100); Monocytes Absolute Auto 800 /uL (0-900); Monocytes Percent Auto 12.2 % (3-14); Neutrophils Absolute Auto 4700 /uL (1500-7000); Neutrophils Percent Auto 74.5 % (50-75); Platelet Count 223 X10^3/uL (150-400); Red Blood Cell Count 4.85 X10^6/uL (4.5-5.9); Red Cell Distribution Width 13.1 % (11.6-14.8); White Blood Cell Count 6.4 X10^3/uL (4.5-11.0)
[2019-02-19 06:16] LABS: Alanine Aminotransferase 19 IU/L (21-72); Albumin 2.7 g/dL (3.5-5.0); Albumin Globulin Ratio 1.1 (1.0-2.8); Alkaline Phosphatase 68 U/L (38-126); Aspartate Aminotransferase 18 IU/L (17-59); BUN Creatinine Ratio 14.3 (6-22); Bilirubin Total 0.4 mg/dL (0.2-1.3); Blood Urea Nitrogen 10 mg/dL (9-20); Carbon Dioxide 30 mmol/L (22-32); Chloride 94 mmol/L (98-107); Estimated Glomerular Filt Rate > 60.0 mL/min (>60); Globulin 2.4 g/dL (1.7-4.1); Glucose 102 mg/dL (70-100); HEMOLYSIS < 15 (0-50); Magnesium 1.5 mg/dL (1.6-2.3); Sodium 132 mmol/L (137-145); Total Protein 5.1 g/dL (6.3-8.2)
[2019-02-19] MEDS: KETOROLAC 15 MG/ML VIAL IV ×2 (07:02→16:56)
[2019-02-19] MEDS: ENOXAPARIN 40 MG/0.4 ML SYRINGE SUBCUT (08:36)
[2019-02-19] MEDS: LACTATED RINGERS 500 ML IV (11:34)
--- NOTE | 2019-02-19 12:33 | CM.DPNOTE ---
DCP Cont: Reviewed chart. Spoke w/ MARTITA Howell this morning, pt has been in a lot of pain, very uncomfortable last night and this morning and pt/family have felt overwhelmed and agitated by this; updated orders requested by MARTITA Howell for additional pain medication available to pt. No updated note from Dr Parrish as of yet re: next steps in medical POC. No teaching done from Zac Hernandez yet per chart review. Pt has supportive spouse and son at bedside this morning. According to review of AD notes, [employer] has been contacted, pt 's medi share plan, P# [phone], , pt should be billed as self pay and he and spouse will be responsible for $5,000 for the hospital stay and $300 for the ER visit. There is a possible 10 day SNF benefit (?) this [employer] will need to investigate either SNF or outpt service coverage pending pt's DC needs. DC needs unclear at this time, medical POC somewhat unclear. Following very closely. CATIE Collado
[2019-02-19] MEDS: MAGNESIUM SULFATE 2 GM/50 ML PIGGYBACK IV (12:54)
--- NOTE | 2019-02-19 13:32 | DIET.PN ---
Dietary Progress Note Assessment: 54y M 1d s/p colon resection r/t diverticular dz and LBO Pt reports 50# wt loss in past 6w. 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 Was enjoying wt loss at first, now feels like skin and bones. Always careful c POs r/t family history of IBD/diverticulosis, reports always had sensitive digestion. Prefers meat, potato, veg for meals. HT: 172.7cm WT: 57.5kg UBW: 81kg (29% loss in 6w severe) BMI: 19.3 Labs: Na 132 (L), Mg 1.5 (L), Total Pro 5.1 (L), Alb 2.7 (L), Carcinoembryonic Antigen (IBD) 4.5 (H) Nutrition Diagnosis: Acute Severe PCM r/t diverticular dz c near total LBO aeb <50% EER for 6w, 29% wt loss in 6w (severe), BMI 19.3, severe muscle and subcutaneous fat losses throughout. Interventions: Per surgeon, recc PICC line c TPN to feed pt as LBO may not be fully resolved. *Start at half of goal as pt high risk for refeeding (31mL/h). Consider monitoring ass. labs (Mg, Phos, K+, edema and BG) for first 3d of feeding. Goal Feeding: continuous central line TPN Clinimix E 1500mL @ 62mL/hr providing 1530 kcal (100% needs), 64g Pro (91%), and 88% of fluid needs. EERs: 1450kcal (25kcal/kg), 70g PRO (1.2g/kg), 1.7L fluids (30mL/kg) Monitoring/Evaluations: following pt daily
[2019-02-19] MEDS: LACTATED RINGERS 500 ML 1000 ML IV (16:11)
--- NOTE | 2019-02-19 17:04 | DI.RAD.S_ITS ---
PROCEDURE: XR CHEST 1V INDICATIONS: check ng placement. post laparotomy for large bowel obstruction TECHNIQUE: One view of the chest was acquired. COMPARISON: [facility], CR, XR CHEST 1V, 02/18/2019, 0:57. CT abdomen and pelvis 02/17/2019. FINDINGS: Surgical changes and devices: Enteric tube with the tip terminating in the stomach. Lungs and pleura: Lungs are clear. Low lung volumes. No pleural effusions or pneumothorax. Mediastinum: Mediastinal contours appear normal. Heart size is normal. Bones and chest wall: No suspicious bony lesions. Overlying soft tissues appear unremarkable. Prominent loops of bowel in the upper abdomen. IMPRESSION: 1. Tube in the stomach. 2. Prominent loops of bowel in the upper abdomen. Dictated by: Amado Goff M.D. on 02/19/2019 at 18:46 Approved by: Amado Goff M.D. on 02/19/2019 at 18:47
--- NOTE | 2019-02-19 17:20 | PM.PNPO.1 ---
Subjective Date Patient Seen: 02/19/19 Time Patient Seen: 17:20 Interval history: patient has abdominal pain as expected. Passed flatus into bag. Exam Vital Signs (past 8 hours): - 02/19/19 10:59 02/19/19 15:10 Temperature 98.5 F 99.5 F Pulse Rate 97 H 104 H Respiratory Rate 16 17 Blood Pressure 121/79 139/92 H Pulse Oximetry 96 95 Oxygen Delivery Method Room Air Oxygen Flow Rate 0 Narrative Exam Narrative: earlier today his ostomy was swollen and violaceous. I felt I had to remove the bar. This afternoon the edema persists but the color is pink. Lungs: excellent effort. Abdomen distended. NG with minimal output. Appears to have backed out some. Objective Labs Result Diagrams: 02/19/19 05:35 02/19/19 05:35 Labs: Laboratory Results - last 24 hr 02/19/19 02/19/19 05:35 05:35 WBC 6.4 RBC 4.85 Hgb 14.8 Hct 42.9 MCV 88.5 MCH 30.5 MCHC 34.5 RDW 13.1 Plt Count 223 Neut % (Auto) 74.5 Lymph % (Auto) 12.4 L [place]kinson % (Auto) 12.2 Eos % (Auto) 0.6 L Baso % (Auto) 0.3 Neut # (Auto) 4700 Lymph # (Auto) 800 L [place] # (Auto) 800 Eos # (Auto) 0 Baso # (Auto) 0 Sodium 132 L Potassium 4.0 Chloride 94 L Carbon Dioxide 30 BUN 10 Creatinine 0.70 Estimated GFR > 60.0 BUN/Creatinine Ratio 14.3 Glucose 102 H Calcium 8.0 L Magnesium 1.5 L Total Bilirubin 0.4 AST 18 ALT 19 L Alkaline Phosphatase 68 Total Protein 5.1 L Albumin 2.7 L Globulin 2.4 Albumin/Globulin Ratio 1.1 Assessment & Plan Post-op Postoperative Procedures Operation Date: 02/18/19 12:00 Actual Procedures Side Surgeon p Exploratory Laparotomy, descending colon colostomy, repair of small bowel enterotomy Nigel Azevedo MD s Rigid Sigmoidoscopy prior to bowel surgery, attempted to reach biopsy site Ambrose Parrish MD s flexible sigmoidoscopy, post laparototomy Ambrose Parrish MD Postoperative day: 1 Postoperative status narrative: Urine output could be better. Urine dark yellow. Given HCT I suspect he is dry. Ng to be advanced slightly as it is just in stomach. Postoperative plan narrative: IV fluids. dvt prophylaxis. Continue pulmonary toilet. Ostomy care. Continue IV antibiotics. Quality VTE Deep Vein Thrombosis/Pulmonary Embolism Present on Admission: No
--- NOTE | 2019-02-19 17:41 | PC.NURSE ---
Mr. Mascorro awake, alert in bed speaking with his son, Richard whom is at his bedside. Mr. Mascorro had pain during the night that was not managed very well. His day nurse, Lynda, has made a care plan to manage his pain which is working well for him. Mr. Mascorro looks much better today than yesterday and has done well with his recovery. His main complaint today is his NG tube. Dr. Parrish was in early today and removed the bridge from his stoma. I removed his ostomy appliance, cleaned his stoma and sera-stomal skin. His stoma was purple in color but after I cleaned off the mucus and old blood it became beefy red. His stoma is well budded, moist and the sutures are in place. His stoma is edematous and measures 39mm. There was 25cc of clear serosanguenous drainage. [facility] mold[facility] wafer with an adaptor and a clear non-filtered pouch. I explained what I was doing and Mr Mascorro watched what I was doing as was amazed by his stoma. His arrived and I did some teaching about the appliance as well as reviewed gas and odor producing foods. I will return tomorrow for further teaching. Dr. Parrish did call me and asked about the stoma. I told him it is not purple anymore but moist and beefy red.
[2019-02-19] MEDS: HYDROMORPHONE 1 MG INJ IV ×4 (18:01→23:45)
[2019-02-20] MEDS: metroNIDAZOLE 500 MG/100 ML PIGGYBACK 100 MG IV ×4 (02:04→19:30)
[2019-02-20] MEDS: HYDROMORPHONE 1 MG INJ IV ×9 (02:05→21:48)
--- NOTE | 2019-02-20 05:01 | PC.NURSE ---
Patient has been taking dilaudid as ordered prn this shift with good pain control. Declined med offer at 0400, but changed his mind at 0445. Did not want whole dose, asking for half dose. Given for pain 5/10.
[2019-02-20 06:00] VITALS: BP 138/71; PULSE 85; RESP 16; TEMP 37; O2SAT 96
[2019-02-20 06:06] LABS: Add Manual Diff / Slide Review NO; Basophils Absolute Auto 0 /uL (0-100); Basophils Percent Auto 0.4 % (0-2); Eosinophils Absolute Auto 100 /uL (0-450); Eosinophils Percent Auto 1.3 % (2-4); Hematocrit 37.4 % (41-53); Hemoglobin 12.9 g/dL (13.5-17.5); Lymphocytes Absolute Auto 600 /uL (1100-4500); Lymphocytes Percent Auto 8.4 % (25-40); Mean Corpuscular HGB Conc 34.4 % (30-36); Mean Corpuscular Hemoglobin 31.1 PG (26-34); Mean Corpuscular Volume 90.4 fL (80-100); Monocytes Absolute Auto 800 /uL (0-900); Monocytes Percent Auto 12.1 % (3-14); Neutrophils Absolute Auto 5300 /uL (1500-7000); Neutrophils Percent Auto 77.8 % (50-75); Platelet Count 209 X10^3/uL (150-400); Red Blood Cell Count 4.13 X10^6/uL (4.5-5.9); Red Cell Distribution Width 13.3 % (11.6-14.8); White Blood Cell Count 6.9 X10^3/uL (4.5-11.0)
[2019-02-20 07:00] VITALS: O2SAT 96
[2019-02-20 07:45] VITALS: BP 142/93; PULSE 90; RESP 16; TEMP 37.3; O2SAT 96
[2019-02-20] MEDS: ENOXAPARIN 40 MG/0.4 ML SYRINGE SUBCUT (09:20)
[2019-02-20] MEDS: LACTATED RINGERS 1,000 ML 140 ML IV (09:21)
--- NOTE | 2019-02-20 09:55 | PM.PNPO.1 ---
Subjective Date Patient Seen: 02/20/19 Time Patient Seen: 09:56 Interval history: Feeling a little better. Passing a lot of gas out his bag. No stool yet. Exam Vital Signs (past 8 hours): - 02/20/19 06:00 02/20/19 07:00 02/20/19 07:45 Temperature 98.6 F 99.2 F Pulse Rate 85 90 Respiratory Rate 16 16 Blood Pressure 138/71 142/93 H Pulse Oximetry 96 96 96 Oxygen Delivery Method Room Air Oxygen Flow Rate 0 Narrative Exam Narrative: Lungs are clear with excellent effort. Heart regular rate and rhythm without murmur gallop. Abdomen remains distended but soft. Ostomy little discolored. It appears to be viable. Still edematous. NG is little blood tinged. Seems to be functioning however. Objective Labs Result Diagrams: 02/20/19 05:13 02/19/19 05:35 Labs: Laboratory Results - last 24 hr 02/20/19 05:13 WBC 6.9 RBC 4.13 L Hgb 12.9 L Hct 37.4 L MCV 90.4 MCH 31.1 MCHC 34.4 RDW 13.3 Plt Count 209 Neut % (Auto) 77.8 H Lymph % (Auto) 8.4 L [place] % (Auto) 12.1 Eos % (Auto) 1.3 L Baso % (Auto) 0.4 Neut # (Auto) 5300 Lymph # (Auto) 600 L [place] # (Auto) 800 Eos # (Auto) 100 Baso # (Auto) 0 Assessment & Plan Post-op Postoperative Procedures Operation Date: 02/18/19 12:00 Actual Procedures Side Surgeon p Exploratory Laparotomy, descending colon colostomy, repair of small bowel enterotomy Nigel Azevedo MD s Rigid Sigmoidoscopy prior to bowel surgery, attempted to reach biopsy site Ambrose Parrish MD s flexible sigmoidoscopy, post laparototomy Ambrose Parrish MD Postoperative day: 2 Postoperative status narrative: Doing well. Awaiting return of bowel function. White blood cell count remains normal with a normal amount of segs. Decreased amount of lymphs noted. Urine output acceptable. Postoperative plan narrative: Doing well. Slowly improving status. Continue DVT prophylaxis. Will add Protonix. Change IV fluid to add dextrose. Hopefully we can spare some of his protein. Labs ordered for the morning. Quality VTE Deep Vein Thrombosis/Pulmonary Embolism Present on Admission: No
--- NOTE | 2019-02-20 10:12 | PC.NURSE ---
AM Shift pt AO and receptive to care. at bedside and active in pt care and ADL's. pt's NG is secured and on intermittent low suction. Mild erythema and irritation to nose, but pt states he is tolerating it. Wilde catheter is patent, hanging below bladder, and draining to gravity. Urine color is moderately-dark yellow and pt and states that it has improved from a highly concentrated dark addison color yesterday. PIV in right forearm is infusing LR at 140ml/hr, left AC is saline locked. Colostomy bag is emptying yellow/brown liquid (25mL) at start of shift and pt is burping independently. Lungs clear and a little diminished (pt states he cannot take baseline deep breaths, but states he feels like he is getting enough air and oxygen). Administered 1mg Dilaudid IV this AM for 7/10 pain, it has since decreased to 4/10. Midline incision is covered with an ABD pad with a nickel-sized shadow to base of pad. Oral care with lemon swabs, pt is communicating that he started to get hungry last night, but understands and is compliant with the NPO order. SCD's intermittently.
[2019-02-20] MEDS: DEXTROSE 5%-0.45% NS 1,000 ML 125 ML IV ×2 (10:46→18:56)
[2019-02-20] MEDS: PANTOPRAZOLE 40 MG VIAL IV (10:46)
[2019-02-20] MEDS: CEFTRIAXONE 1 GM/50 ML FROZ.PIGGY IV (13:07)
[2019-02-20 15:55] VITALS: BP 149/95; PULSE 86; RESP 16; TEMP 37.1; O2SAT 94; O2SAT 97
[2019-02-20 20:34] VITALS: BP 138/85; PULSE 77; RESP 16; TEMP 37.2; O2SAT 93
[2019-02-20 23:00] VITALS: O2SAT 93
[2019-02-20] MEDS: KETOROLAC 15 MG/ML VIAL IV (23:47)
[2019-02-21] VITALS (9 sets, daily range): BP systolic 118–145; BP diastolic 76–87; PULSE 65–84; RESP 12–20; TEMP 36.6–37.7; O2SAT 93–98
[2019-02-21] MEDS: CEFTRIAXONE 1 GM/50 ML FROZ.PIGGY IV ×2 (00:22→12:48)
[2019-02-21] MEDS: metroNIDAZOLE 500 MG/100 ML PIGGYBACK 100 MG IV ×4 (02:01→20:59)
[2019-02-21] MEDS: HYDROMORPHONE 1 MG INJ IV (05:42)
[2019-02-21] MEDS: DEXTROSE 5%-0.45% NS 1,000 ML 125 ML IV ×2 (05:48→15:46)
[2019-02-21 06:19] LABS: Add Manual Diff / Slide Review NO; Basophils Absolute Auto 0 /uL (0-100); Basophils Percent Auto 0.3 % (0-2); Eosinophils Absolute Auto 100 /uL (0-450); Eosinophils Percent Auto 1.8 % (2-4); Hematocrit 35.9 % (41-53); Hemoglobin 12.3 g/dL (13.5-17.5); Lymphocytes Absolute Auto 500 /uL (1100-4500); Lymphocytes Percent Auto 5.9 % (25-40); Mean Corpuscular HGB Conc 34.1 % (30-36); Mean Corpuscular Hemoglobin 30.5 PG (26-34); Mean Corpuscular Volume 89.2 fL (80-100); Monocytes Absolute Auto 800 /uL (0-900); Monocytes Percent Auto 9.8 % (3-14); Neutrophils Absolute Auto 6400 /uL (1500-7000); Neutrophils Percent Auto 82.2 % (50-75); Platelet Count 220 X10^3/uL (150-400); Red Blood Cell Count 4.03 X10^6/uL (4.5-5.9); Red Cell Distribution Width 12.8 % (11.6-14.8); White Blood Cell Count 7.8 X10^3/uL (4.5-11.0)
[2019-02-21 06:28] LABS: Blood Urea Nitrogen 9 mg/dL (9-20); Calcium 7.8 mg/dL (8.4-10.2); Carbon Dioxide 31 mmol/L (22-32); Chloride 97 mmol/L (98-107); Estimated Glomerular Filt Rate > 60.0 mL/min (>60); Glucose 125 mg/dL (70-100); HEMOLYSIS < 15 (0-50); Magnesium 1.8 mg/dL (1.6-2.3); Potassium 3.6 mmol/L (3.4-5.1); Sodium 133 mmol/L (137-145)
[2019-02-21 06:53] LABS: Procalcitonin 4.43 ng/mL (<0.5)
[2019-02-21] MEDS: PANTOPRAZOLE 40 MG VIAL IV (08:43)
[2019-02-21] MEDS: KETOROLAC 15 MG/ML VIAL IV ×2 (08:43→15:46)
[2019-02-21] MEDS: ENOXAPARIN 40 MG/0.4 ML SYRINGE SUBCUT (08:44)
--- NOTE | 2019-02-21 08:50 | CM.DPNOTE ---
DCP Cont: Met w/pt, spouse Florencia and son Richard at bedside yesterday, explained SW role. Spouse explains that they have a lot of family support on [address] and she is eager to get pt home. Spouse opened a [employer] shop many years ago on [address] and is well connected in the community. Pt/spouse's parents all live on [address], as does pt/spouse's adult children. Spouse Florencia feels very capable of caring for pt's new ostomy and denies any SW needs at this time. Spoke w/Ostomy nurse Charlotte Asif. She agrees w/pt and family that he will likely DC back home when medically cleared w/no barriers. Charlotte is providing teaching to pt/famly and she feels they are capable of self managing new ostomy. Following closely in case DC needs, questions or concerns arise. Expect DC home w/family when medically stable. CATIE Collado
--- NOTE | 2019-02-21 11:43 | DI.RAD.S_ITS ---
PROCEDURE: XR ABDOMEN 1V INDICATIONS: determine whether obstruction pattern persists TECHNIQUE: One view of the abdomen acquired. COMPARISON: [facility], CT, CT ABDOMEN PELVIS W CON, 02/17/2019, 22:40. [facility], CR, XR CHEST 1V, 02/18/2019, 0:57. [facility], CR, XR CHEST 1V, 02/19/2019, 17:15. FINDINGS: Surgical changes and devices: The tip of the gastric tube can be seen within the proximal stomach. The sidehole is seen below the level of the diaphragm. There is a left lower quadrant ostomy seen. Bowel: Prominent loops of small bowel are seen, which measure up to 3.6 cm. Enlarged colonic loops are also seen that measure up to 5 cm. No upright or decubitus view is performed to evaluate for air-fluid levels. Soft tissues: No suspicious abdominal calcifications. Visualized solid organ contours appear normal in size. Bones: No suspicious bony lesions. IMPRESSION: These imaging findings are most compatible with a postoperative ileus. Obstruction is also possible, yet considered to be less likely. As clinically appropriate, please consider a repeat plain film study or a dedicated CT of the abdomen and pelvis, if the patient's symptoms persist or worsen. Dictated by: Aaron Casiano M.D. on 02/21/2019 at 12:40 Approved by: Aaron Casiano M.D. on 02/21/2019 at 12:41
--- NOTE | 2019-02-21 14:29 | P.PN_ITS ---
Subjective Date Patient Seen: 02/21/19 Time Patient Seen: 12:00 Interval history: The patient is a gentleman post diversion of his colon for an obstructing sigmoid lesion. Feeling much better today. Ostomy is begun to function and his bili is not quite is distended. Exam Vital Signs (past 8 hours): - 02/21/19 07:45 02/21/19 08:25 Temperature 99.0 F Pulse Rate 70 Respiratory Rate 16 Blood Pressure 126/76 Pulse Oximetry 97 96 Oxygen Delivery Method Room Air Oxygen Flow Rate 0 Narrative Exam Narrative: Ostomy covered in stool at this time. Lungs are clear to auscultation with good effort. Heart regular rate and rhythm without murmur gallop. Abdomen is soft nontender except near incision which is dry and intact. No cellulitis. Objective Imaging Abdominal x-ray: My impression: Little less distended than prior films. No significant colonic gas seen. Labs Result Diagrams: 02/21/19 05:55 02/21/19 05:55 Labs: Laboratory Results - last 24 hr 02/21/19 02/21/19 02/21/19 05:55 05:55 05:55 WBC 7.8 RBC 4.03 L Hgb 12.3 L Hct 35.9 L MCV 89.2 MCH 30.5 MCHC 34.1 RDW 12.8 Plt Count 220 Neut % (Auto) 82.2 H Lymph % (Auto) 5.9 L [place] % (Auto) 9.8 Eos % (Auto) 1.8 L Baso % (Auto) 0.3 Neut # (Auto) 6400 Lymph # (Auto) 500 L [place] # (Auto) 800 Eos # (Auto) 100 Baso # (Auto) 0 Sodium 133 L Potassium 3.6 Chloride 97 L Carbon Dioxide 31 BUN 9 Creatinine 0.60 L Estimated GFR > 60.0 BUN/Creatinine Ratio 15.0 Glucose 125 H Calcium 7.8 L Magnesium 1.8 Procalcitonin 4.43 H Assessment & Plan Post-op Postoperative Procedures Operation Date: 02/18/19 12:00 Actual Procedures Side Surgeon p Exploratory Laparotomy, descending colon colostomy, repair of small bowel enterotomy Nigel Azevedo MD s Rigid Sigmoidoscopy prior to bowel surgery, attempted to reach biopsy site Ambrose Parrish MD s flexible sigmoidoscopy, post laparototomy Ambrose Parrish MD Postoperative status: doing well Postoperative plan narrative: DC NG tube. DC Wilde. Keep NPO however. He did have a small bowel enterotomy. Probably will repeat x-rays in the morning. Continue IV antibiotics. Seg count is going up a little. Urine output remains adequate so Wilde can be removed. Quality VTE Deep Vein Thrombosis/Pulmonary Embolism Present on Admission: No
--- NOTE | 2019-02-21 16:00 | PC.NURSE ---
Post-op: 3 stools/flatus which blew off pouch/wafer x3. The one he has was to small and the new ones are larger were obtained after the first two times. Because of the stools and concerns about his incision by spouse he did shower twice today and he also walked in the hallways . Seen by and had x-ray completed. later NGT was removed intact. Blood glucose checks have been d/c. He is feeling better now. Hopefully this pouch will stay on. Cont w/poc.
[2019-02-22] VITALS (8 sets, daily range): BP systolic 130–142; BP diastolic 78–93; PULSE 58–69; RESP 15–20; TEMP 36.7–37.2; O2SAT 95–98
[2019-02-22] MEDS: CEFTRIAXONE 1 GM/50 ML FROZ.PIGGY IV ×3 (00:56→23:58)
[2019-02-22] MEDS: DEXTROSE 5%-0.45% NS 1,000 ML 125 ML IV ×3 (00:56→20:37)
--- NOTE | 2019-02-22 01:05 | PC.NURSE ---
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 Vital signs stable. IVs in place in rt forearm and rt AC, with D5 1/2NS infusing at 125cc/hr. SCDs on. Midline incision open to air. Colostomy bag intact, with large amt flatus and 100cc liquid brown stool. Bag emptied at this time. Pt declined pain medication, states he is ok at this time.
[2019-02-22] MEDS: metroNIDAZOLE 500 MG/100 ML PIGGYBACK 100 MG IV ×4 (02:23→19:22)
[2019-02-22] MEDS: ENOXAPARIN 40 MG/0.4 ML SYRINGE SUBCUT (09:36)
[2019-02-22] MEDS: PANTOPRAZOLE 40 MG VIAL IV (09:36)
--- NOTE | 2019-02-22 11:49 | PM.PNPO.1 ---
Subjective Date Patient Seen: 02/22/19 Time Patient Seen: 11:00 Interval history: The patient is postop from diversion. Pain seems well controlled. Passing some flatus and stool through his ostomy. Exam Vital Signs (past 8 hours): - 02/22/19 07:30 02/22/19 07:55 Temperature 98.9 F Pulse Rate 58 L Respiratory Rate 16 Blood Pressure 130/82 Pulse Oximetry 96 97 Oxygen Delivery Method Room Air Oxygen Flow Rate 0 Narrative Exam Narrative: Operative no apparent distress. Lungs excellent effort. Clear. Heart regular rate and rhythm without murmur gallop. Abdomen remains distended but soft. Staple line intact without cellulitis. Large amount of stool and air in the bag. Objective Labs Result Diagrams: 02/21/19 05:55 02/21/19 05:55 Assessment & Plan Post-op Postoperative Procedures Operation Date: 02/18/19 12:00 Actual Procedures Side Surgeon p Exploratory Laparotomy, descending colon colostomy, repair of small bowel enterotomy Nigel Azevedo MD s Rigid Sigmoidoscopy prior to bowel surgery, attempted to reach biopsy site Ambrose Parrish MD s flexible sigmoidoscopy, post laparototomy Ambrose Parrish MD Postoperative status: doing well Postoperative status narrative: Vital signs suggest he is doing quite well. Given white blood cell count low likelihood of infection there was procalcitonin yesterday was elevated. Postoperative plan narrative: Will cautiously begin sips of liquid. I am concerned that he is still distended which probably is due to small bowel gas. Will repeat his x-rays in the morning. Continue DVT prophylaxis. Continue IV fluids. Encouraged ambulation. Continue IV antibiotics. Quality VTE Deep Vein Thrombosis/Pulmonary Embolism Present on Admission: No
--- NOTE | 2019-02-22 14:41 | PC.NURSE ---
post-op: Feels better today. Vds w/out problems since hartley has been d/c. Denies nausea or gi discomfort since NGT d/c, is passing flatus and stool via ostomy. Abd is softer today and he reports he is much less bloated. No use of pain meds, he knows they are available and doesn't like to take anything unless he has to. Resting quietly and watches tv with son. Cont w/poc.
[2019-02-22] MEDS: KETOROLAC 15 MG/ML VIAL IV (19:45)
[2019-02-23] VITALS (10 sets, daily range): BP systolic 123–143; BP diastolic 80–99; PULSE 62–83; RESP 18; TEMP 36.8–37.2; O2SAT 95–99
[2019-02-23] MEDS: metroNIDAZOLE 500 MG/100 ML PIGGYBACK 100 MG IV ×3 (02:10→17:03)
[2019-02-23] MEDS: DEXTROSE 5%-0.45% NS 1,000 ML 125 ML IV ×2 (05:57→23:23)
[2019-02-23 06:04] LABS: Add Manual Diff / Slide Review NO; Basophils Absolute Auto 0 /uL (0-100); Basophils Percent Auto 0.6 % (0-2); Eosinophils Absolute Auto 200 /uL (0-450); Eosinophils Percent Auto 2.9 % (2-4); Hematocrit 39.1 % (41-53); Hemoglobin 13.3 g/dL (13.5-17.5); Lymphocytes Absolute Auto 900 /uL (1100-4500); Lymphocytes Percent Auto 12.9 % (25-40); Mean Corpuscular HGB Conc 33.9 % (30-36); Mean Corpuscular Hemoglobin 30.4 PG (26-34); Mean Corpuscular Volume 89.6 fL (80-100); Monocytes Absolute Auto 800 /uL (0-900); Monocytes Percent Auto 11.2 % (3-14); Neutrophils Absolute Auto 4900 /uL (1500-7000); Neutrophils Percent Auto 72.4 % (50-75); Platelet Count 295 X10^3/uL (150-400); Red Blood Cell Count 4.36 X10^6/uL (4.5-5.9); Red Cell Distribution Width 13.3 % (11.6-14.8); White Blood Cell Count 6.8 X10^3/uL (4.5-11.0)
[2019-02-23 06:16] LABS: BUN Creatinine Ratio 6.7 (6-22); Blood Urea Nitrogen 4 mg/dL (9-20); Calcium 7.8 mg/dL (8.4-10.2); Carbon Dioxide 29 mmol/L (22-32); Chloride 102 mmol/L (98-107); Estimated Glomerular Filt Rate > 60.0 mL/min (>60); Glucose 125 mg/dL (70-100); HEMOLYSIS < 15 (0-50); Magnesium 1.8 mg/dL (1.6-2.3); Potassium 3.2 mmol/L (3.4-5.1); Sodium 138 mmol/L (137-145)
[2019-02-23] MEDS: KETOROLAC 15 MG/ML VIAL IV (06:31)
--- NOTE | 2019-02-23 07:00 | DI.RAD.S_ITS ---
PROCEDURE: XR ABDOMEN MIN 2V INDICATIONS: follow up for obstruction TECHNIQUE: 2 views of the abdomen were acquired. COMPARISON: [facility], CT, CT ABDOMEN PELVIS W CON, 02/17/2019, 22:40. [facility], CR, XR CHEST 1V, 02/19/2019, 17:15. [facility], CR, XR ABDOMEN 1V, 02/21/2019, 13:12. FINDINGS: Surgical changes and devices: Left lower quadrant ostomy. Midline laparotomy tristen. Bowel: Abnormal bowel gas pattern is present. Asymmetric dilatation of small bowel throughout the abdomen and pelvis with paucity of gas within the colon. No pneumatosis or bowel wall thickening. No pneumoperitoneum. Soft tissues: No masses; visualized solid organ contours appear normal in size. No suspicious abdominal calcifications. Bones: No suspicious bony abnormalities. Small bibasilar pleural effusions. IMPRESSION: 1. Small bowel obstructive pattern which appear similar to prior examination. 2. Small bibasilar pleural effusions. Dictated by: Alexander Singh [facility] Interpreted: Osmany Rascon MD on 02/23/2019 at 8:19 Approved by: Osmany Rascon M.D. on 02/23/2019 at 15:09
[2019-02-23] MEDS: ENOXAPARIN 40 MG/0.4 ML SYRINGE SUBCUT (08:34)
[2019-02-23] MEDS: PANTOPRAZOLE 40 MG VIAL IV (08:34)
[2019-02-23] MEDS: POTASSIUM CHLORIDE 40 MEQ in SODIUM CHLORIDE 0.9% 500 ML 130 ML IV (10:39)
[2019-02-23] MEDS: CEFTRIAXONE 1 GM/50 ML FROZ.PIGGY IV (15:42)
--- NOTE | 2019-02-23 15:57 | PC.NURSE ---
Day Shift pt stated pain controlled with toradol from end of last shift. declined any additional medication. up with in room and halls independently. ostomy appliance intact. Around 1300, pt starting to get sick of being inside. he was clearly more depressed today than when i saw him last 2 days ago. He and his state that he is never inside and this is very hard for him. He asked about going home earlier and stated i'm not a prisoner, you can't keep me here. explained about leaving AMA and he did not want to do that. Pt just wanted to go outside. Spoke with MD and he stated it was ok for pt to go outside as long as there was no smoking. Pt does not smoke. He and went to the courtyard for about 30 min in the middle of the shift today. Spirits much improved after time outside Returned to room and ostomy was leaking. He removed old ostomy in the shower and wanted to try and apply new wafer himself. He was able to mold appliance with while looking in mirror to come close to stoma size, a little correction in size was made. Pt and were able to perform crusting technique and do this to peristomal skin. He then applied ostomy wafer and bag. warm blanked applied on top to help warm the dressing to seal it to his skin.
--- NOTE | 2019-02-23 17:34 | P.PN_ITS ---
Subjective Date Patient Seen: 02/23/19 Time Patient Seen: 17:28 Interval history: Patient feeling OK. TOlerating PO liquids. Having problems getting the bags to stick. Exam Vital Signs (past 8 hours): - 02/23/19 15:48 Temperature 98.3 F Pulse Rate 82 Respiratory Rate 18 Blood Pressure 123/80 Pulse Oximetry 98 Oxygen Delivery Method Room Air Oxygen Flow Rate 0 Narrative Exam Narrative: Wounds look fine. No cellulitis. Ostomy healthy. Objective Labs Result Diagrams: 02/23/19 05:20 02/23/19 05:20 Labs: Laboratory Results - last 24 hr 02/23/19 02/23/19 05:20 05:20 WBC 6.8 RBC 4.36 L Hgb 13.3 L Hct 39.1 L MCV 89.6 MCH 30.4 MCHC 33.9 RDW 13.3 Plt Count 295 Neut % (Auto) 72.4 Lymph % (Auto) 12.9 L [place] % (Auto) 11.2 Eos % (Auto) 2.9 Baso % (Auto) 0.6 Neut # (Auto) 4900 Lymph # (Auto) 900 L [place] # (Auto) 800 Eos # (Auto) 200 Baso # (Auto) 0 Sodium 138 Potassium 3.2 L Chloride 102 Carbon Dioxide 29 BUN 4 L Creatinine 0.60 L Estimated GFR > 60.0 BUN/Creatinine Ratio 6.7 Glucose 125 H Calcium 7.8 L Magnesium 1.8 Assessment & Plan Post-op Postoperative Procedures Operation Date: 02/18/19 12:00 Actual Procedures Side Surgeon p Exploratory Laparotomy, descending colon colostomy, repair of small bowel enterotomy Nigel Azevedo MD s Rigid Sigmoidoscopy prior to bowel surgery, attempted to reach biopsy site Ambrose Parrish MD s flexible sigmoidoscopy, post laparototomy Ambrose Parrish MD Postoperative day: 5 Postoperative status narrative: Doing well Postoperative plan narrative: continue top advance diet as tolerating. Ostomy care. Stop antibiotic. Ativan for anxiety. Quality VTE Deep Vein Thrombosis/Pulmonary Embolism Present on Admission: No
[2019-02-24] VITALS (8 sets, daily range): BP systolic 131–146; BP diastolic 80–95; PULSE 76–94; RESP 16–20; TEMP 36.8–37.4; O2SAT 95–98
[2019-02-24] MEDS: DEXTROSE 5%-0.45% NS 1,000 ML 125 ML IV ×2 (06:37→17:00)
[2019-02-24] MEDS: PANTOPRAZOLE 40 MG VIAL IV (08:31)
[2019-02-24] MEDS: ENOXAPARIN 40 MG/0.4 ML SYRINGE SUBCUT (08:31)
--- NOTE | 2019-02-24 12:07 | DIET.PN ---
Dietary Progress Note Assessment: 54y M 6d s/p colon resection r/t diverticular dz and LBO Pt and had questions re: ONS upon discharge. Pt is hungry and enjoys ensure clear, trialed Ensure Surgery, pt requests ensure surgery bid. HT: 172.7cm WT: 57.5kg (wt stable since 02/19/19) UBW: 81kg (29% loss in 6w severe) BMI: 19.3 Labs: K+ 3.2 (L) Nutrition Diagnosis: Acute Severe PCM r/t diverticular dz c near total LBO aeb <50% EER for 6w, 29% wt loss in 6w (severe), BMI 19.3, severe muscle and subcutaneous fat losses throughout. Interventions: Recc Ensure surgery bid, educated pt on only drinking 2 per day for arginine to heal wounds. EERs: 1450kcal (25kcal/kg), 70g PRO (1.2g/kg), 1.7L fluids (30mL/kg) Monitoring/Evaluations: following pt daily
--- NOTE | 2019-02-24 13:34 | PC.NURSE ---
Ostomy Nurse Consult Note Asad is awake and alert in bed with his at his bedside. He looks well. They tell me how over the weekend his pouching system kept leaking and the nursing staff was having a hard time preventing leaks. Asad actually place an appliance on himself earlier this morning. I removed the appliance. His stoma has some slough measuring 1.0 x 0.6, which I tried to clean off but it is adhered to the stoma. Around this slough is beefy red stoma. His sutures are intact, and there is some slight tension on the suture line. His sera-stomal skin is intact. His stoma is oval and measures 42cm and is budded about 1 inch from his abdomen plane. His midline tristen are intact, without redness or drainage. I changed his appliance and used some stoma paste in the 9:00 position as there is a bit of a crease. I instructed Asad and his Jasmin on how to use the paste. Then I place a 70mm Moldable flat wafer and non-filtered clear pouch. Asad tolerated this well and verbalized understanding of applying an appliance. I think a convex appliance may be the best application for providing a seal. We only have 57mm convex wafers. I gave them several but also gave them several 70m wafers and pouches for discharge. I showed then how to use a mazin ring and how to fill in a crease with paste to flatten out around the stoma and explained why a convex wafer might work better. The verbalized understanding. I will order sample products for Asad to try. I showed them both how to cut a wafer and Jasmin practiced on the model. We also practiced the crusting technique. We discussed food options to prevent gas and liquid stool as well as how to prevent a hernia and how to protect his stoma from his jumping dog. They will order a stoma protector on line. I would like them to follow up [facility] discharge so I can continue with monitoring his stoma and to help with any issue that may come up when he received Chemo.
--- NOTE | 2019-02-24 14:55 | PC.NURSE ---
Pt down to [facility] for some private time with his as he feels like he gets couped up in his room. Stoma is beefy red and Charlotte solid waste technician came into see patient today and changed out his colostomy pouch and wafter. He is happy with this set up today as former wafers were leaking from having loose stool. His stool is soft and brown. Pt has tolerated his full liquid diet today and will progress to a regular diet this evening. Pt just back from [facility] and is now ambulating in the halls.
--- NOTE | 2019-02-24 18:26 | PM.PNPO.1 ---
Subjective Date Patient Seen: 02/24/19 Time Patient Seen: 18:26 Interval history: Tolerated his full liquid diet earlier today in his general diet for dinner. No nausea or vomiting. He had a small bowel movement per rectum. Pain seems well controlled. Exam Vital Signs (past 8 hours): - 02/24/19 11:00 02/24/19 12:20 02/24/19 15:58 Temperature 99.4 F 99.1 F Pulse Rate 86 94 H Respiratory Rate 16 18 Blood Pressure 136/88 146/93 H Pulse Oximetry 97 98 97 02/24/19 16:00 Temperature Pulse Rate Respiratory Rate Blood Pressure Pulse Oximetry 98 Oxygen Delivery Method Room Air Oxygen Flow Rate 0 Narrative Exam Narrative: Operative no apparent distress. Lungs are clear. Abdomen is scaphoid and soft. Incision is intact. Ostomy is viable. Colostomy functioning. Objective Labs Result Diagrams: 02/23/19 05:20 02/23/19 05:20 Assessment & Plan Post-op Postoperative Procedures Operation Date: 02/18/19 12:00 Actual Procedures Side Surgeon p Exploratory Laparotomy, descending colon colostomy, repair of small bowel enterotomy Nigel Azevedo MD s Rigid Sigmoidoscopy prior to bowel surgery, attempted to reach biopsy site Ambrose Parrish MD s flexible sigmoidoscopy, post laparototomy Ambrose Parrish MD Postoperative day: 6 Postoperative status: doing well Postoperative plan narrative: Probable discharge in the morning. Labs in the a.m.. Stop all fluids. Quality VTE Deep Vein Thrombosis/Pulmonary Embolism Present on Admission: No
--- NOTE | 2019-02-24 18:29 | P.PN_ITS ---
Subjective Date Patient Seen: 02/24/19 Time Patient Seen: 18:26 Interval history: Tolerated his full liquid diet earlier today in his general diet for dinner. No nausea or vomiting. He had a small bowel movement per rectum. Pain seems well controlled. Exam Vital Signs (past 8 hours): - 02/24/19 11:00 02/24/19 12:20 02/24/19 15:58 Temperature 99.4 F 99.1 F Pulse Rate 86 94 H Respiratory Rate 16 18 Blood Pressure 136/88 146/93 H Pulse Oximetry 97 98 97 02/24/19 16:00 Temperature Pulse Rate Respiratory Rate Blood Pressure Pulse Oximetry 98 Oxygen Delivery Method Room Air Oxygen Flow Rate 0 Narrative Exam Narrative: Operative no apparent distress. Lungs are clear. Abdomen is scaphoid and soft. Incision is intact. Ostomy is viable. Colostomy functioni ng. Objective Labs Result Diagrams: 02/23/19 05:20 02/23/19 05:20 Assessment & Plan Post-op Postoperative Procedures Operation Date: 02/18/19 12:00 Actual Procedures Side Surgeon p Exploratory Laparotomy, descending colon colostomy, repair of small bowel enterotomy Nigel Azevedo MD s Rigid Sigmoidoscopy prior to bowel surgery, attempted to reach biopsy site Ambrose Parrish MD s flexible sigmoidoscopy, post laparototomy Ambrose Parrish MD Postoperative day: 6 Postoperative status: doing well Postoperative plan narrative: Probable discharge in the morning. Labs in the a.m.. Stop all fluids. Quality VTE Deep Vein Thrombosis/Pulmonary Embolism Present on Admission: No
[2019-02-24] MEDS: POTASSIUM CHLORIDE 20 MEQ/15 ML UDC PO (20:27)
[2019-02-25 00:20] VITALS: O2SAT 98
[2019-02-25 06:16] LABS: Add Manual Diff / Slide Review NO; Basophils Absolute Auto 100 /uL (0-100); Basophils Percent Auto 0.7 % (0-2); Eosinophils Absolute Auto 400 /uL (0-450); Eosinophils Percent Auto 3.8 % (2-4); Hematocrit 37.2 % (41-53); Lymphocytes Absolute Auto 1200 /uL (1100-4500); Lymphocytes Percent Auto 13.2 % (25-40); Mean Corpuscular HGB Conc 34.9 % (30-36); Mean Corpuscular Hemoglobin 30.7 PG (26-34); Monocytes Absolute Auto 900 /uL (0-900); Monocytes Percent Auto 10.1 % (3-14); Neutrophils Absolute Auto 6800 /uL (1500-7000); Neutrophils Percent Auto 72.2 % (50-75); Platelet Count 360 X10^3/uL (150-400); Red Blood Cell Count 4.22 X10^6/uL (4.5-5.9); Red Cell Distribution Width 13.3 % (11.6-14.8); White Blood Cell Count 9.4 X10^3/uL (4.5-11.0)
[2019-02-25 06:22] LABS: BUN Creatinine Ratio 11.7 (6-22); Blood Urea Nitrogen 7 mg/dL (9-20); Calcium 8.3 mg/dL (8.4-10.2); Carbon Dioxide 31 mmol/L (22-32); Chloride 101 mmol/L (98-107); Estimated Glomerular Filt Rate > 60.0 mL/min (>60); Glucose 98 mg/dL (70-100); HEMOLYSIS < 15 (0-50); Potassium 3.5 mmol/L (3.4-5.1); Sodium 138 mmol/L (137-145)
[2019-02-25] MEDS: PANTOPRAZOLE 20 MG TABLET PO (06:50)
[2019-02-25 08:00] VITALS: BP 147/101; PULSE 81; RESP 18; TEMP 36.8; O2SAT 97
[2019-02-25] MEDS: ENOXAPARIN 40 MG/0.4 ML SYRINGE SUBCUT (08:32)
[2019-02-25] MEDS: GABAPENTIN 300 MG CAPSULE PO (08:32)
--- NOTE | 2019-02-25 08:56 | PM.DS.1 ---
History of Present Illness Date Patient Seen: 02/25/19 Time Patient Seen: 08:57 Chief complaint: NOT WELL, SEVERE ABDOMINAL PAIN Narrative: Patient is gentleman with progressive weight loss, decrease in appetite, change in bowel habits and vague discomfort who presented with obstipation and was found to have evidence of a large bowel obstruction with a mass in the sigmoid region. Discharge Providers Date of admission: 02/18/19 00:19 Discharge Date: 02/25/19 Consults: 02/18/19 01:21 Consult to PICC Line RN Routine Comment: anticipate TPN need 02/18/19 01:22 Consult to Wound Care Routine Comment: ostomy marking for end colostomy vs loop ileostomy Consulting Provider: [facility] 02/18/19 17:50 Consult to Discharge Planning Routine Comment: Discharge provider: Ambrose Parrish MD Summary Discharge Diagnosis: Large bowel obstruction secondary to tumor. Diagnosis not certain but suspected to be colon cancer. Hypokalemia Severe protein calorie malnutrition with significant weight loss, loss of fat stores and muscle mass Hospital Course: Patient was taken for an emergent diversion with a descending loop colostomy and attempted biopsy which was unsuccessful due to the complete obstruction below the mass. The mass itself could not be seen on colonoscopy. His obstructive symptoms gradually resolved and he was gradually advanced on a diet. The discharge was tolerating a general diet with his pain well controlled and good understanding of ostomy care. Status at Discharge Cognitive/behavioral status at discharge: oriented Functional status at discharge: independent ambulation Overall status at discharge: patient is progressing back to baseline Exam Vital Signs (past 8 hours): - 02/25/19 08:00 Temperature 98.3 F Pulse Rate 81 Respiratory Rate 18 Blood Pressure 147/101 H Pulse Oximetry 97 Oxygen Delivery Method Room Air Oxygen Flow Rate 0 Narrative Exam Narrative: Lungs clear abdomen is scaphoid soft no cellulitis ostomy is healthy and functioning Objective Labs Result Diagrams: 02/25/19 06:00 02/25/19 06:00 Labs: Laboratory Results - last 24 hr 02/25/19 02/25/19 06:00 06:00 WBC 9.4 RBC 4.22 L Hgb 13.0 L Hct 37.2 L MCV 88.0 MCH 30.7 MCHC 34.9 RDW 13.3 Plt Count 360 Neut % (Auto) 72.2 Lymph % (Auto) 13.2 L [place] % (Auto) 10.1 Eos % (Auto) 3.8 Baso % (Auto) 0.7 Neut # (Auto) 6800 Lymph # (Auto) 1200 [place] # (Auto) 900 Eos # (Auto) 400 Baso # (Auto) 100 Sodium 138 Potassium 3.5 Chloride 101 Carbon Dioxide 31 BUN 7 L Creatinine 0.60 L Estimated GFR > 60.0 BUN/Creatinine Ratio 11.7 Glucose 98 Calcium 8.3 L Discharge Plan Discharge Plan Patient Disposition: Home Discharge comment: I will see you this coming Saturday at about 2:00 p.m.. If you are earlier or later that is okay. We will set you up for colonoscopy at that time, in addition to any other procedures you might need. You should start taking a multiple vitamin with iron daily Discharge Med Rec/Prescriptions Prescriptions: New hydrocodone-acetaminophen [[place]] 5-325 mg tablet 1 tab PO Q4-6H PRN (Reason: painful procedure) Qty: 10 RF: 0 enoxaparin [Lovenox] 40 mg/0.4 mL syringe 40 mg SUBCUT DAILY Qty: 4 RF: 0 Follow up/Referrals: Ambrose Parrish MD [Physician] - 03/03/19 2:00 pm Provider Discharge Instructions Diet: Diet as Tolerated Diet comment: Eat food high in protein such as meat and fish and chicken. Activity: Do not lift over 10 lb or strain for another 5 weeks. You may walk. No other exercise. You may shower. Avoid a pool or tub for at least 2 weeks. Other treatments: You may drink Ensure supplements Skin/Wound/Dressing Care Report to your healthcare provider any signs of infection, such as:: increased pain, unusual drainage and unusual redness Discharge Data Attending Provider: Cal Tavera Admit Date/Time: 02/18/19 00:19 Quality VTE Deep Vein Thrombosis/Pulmonary Embolism Present on Admission: No
[2019-02-25 10:14] VITALS: O2SAT 96
--- NOTE | 2019-02-25 11:04 | PC.NURSE ---
Pt is now discharged. IV taken out, pt showered and packed all his stuff up. Denied pain and attentive to care. Pt just out to car.
== END 2019-02-25 11:08 | disposition home or self-care (01) | DRG 329 ==
LOC: ED 20:00 → AC 02-18 00:21
PROVIDERS: Specialist; Surgery; Admitting Provider Surgery; Emergency Provider Emergency Medicine; Visit Provider Surgery
PROC: (CPT 49000; principal; 2019-02-18 12:00)
PROC: 0DJD8ZZ Inspection of Lower Intestinal Tract, Via Natural or Artificial Opening Endoscopic (ICD-10-PCS; CPT 45300; 2019-02-18 12:00)
PROC: 0DJD8ZZ Inspection of Lower Intestinal Tract, Via Natural or Artificial Opening Endoscopic (ICD-10-PCS; CPT 45378; 2019-02-18 12:00)
DX: K56.609 Unspecified intestinal obstruction, unspecified as to partial versus complete obstruction (principal); E43 Unspecified severe protein-calorie malnutrition; Z68.1 Body mass index [BMI] 19.9 or less, adult; K91.71 Accidental puncture and laceration of a digestive system organ or structure during a digestive system procedure; E46 Unspecified protein-calorie malnutrition; E87.6 Hypokalemia
CPT/HCPCS: 36415; 36591; 44320; 71045; 74018; 74019; 74177; 80048; 80053; 82378; 82962; 83690; 83735; 84145; 85025; 85610; 85730; 96361; 96365; 96375; 96376; 99283; 99285; C9113; J0330; J0696; J1100; J1170; J1644; J1650; J1885; J1956; J2250; J2270; J2405; J2704; J3010; J3480; Q9967

== ENCOUNTER → 2019-03-11 09:42 | Outpatient (CLI) | payer OTHER, SELFPAY ==
[2019-02-18 02:30] VITALS: BMI 21.2
== END ==
PROVIDERS: PCP Family Medicine; Referring Provider Specialist; Visit Provider Family Medicine
DX: Z93.3 Colostomy status (principal)
CPT/HCPCS: 99212

== ENCOUNTER 2019-03-19 10:20 | Day surgery (SDC) | payer OTHER, SELFPAY ==
[2019-02-18 02:30] VITALS: BMI 21.2
[2019-03-19] VITALS (7 sets, daily range): BP systolic 105–124; BP diastolic 72–83; PULSE 82–90; RESP 10–16; TEMP 36.3–37; O2SAT 96–99; BMI 19.5
--- NOTE | 2019-03-19 | PATH_ITS ---
[facility] Accession Number: [id number] . 01 Material submitted: . sigmoid colon - SIGMOID BIOPSY . 01 Clinical history: . OTHER SPECIFIED DISEASES OF INTESTINE . 02 Diagnosis: Sigmoid Colon, Biopsies: Colonic mucosa with no significant diagnostic abnormality. Additional levels were examined. Negative for active, chronic and microscopic colitis. Negative for dysplasia and malignancy. V 03/23/2019 1346 Local . 02 Electronically signed: . Carolina Sutton MD, Pathologist NPI- [id number] . 01 Gross description: . SIGMOID BIOPSY: Received in formalin is 1 fragment(s) of barrett, soft tissue measuring 0.5 x 0.2 x 0.2 cm which is entirely submitted and submitted entirely in 1 cassette(s) [place] [place]19/20192031 Local . 02 Pathologist provided ICD-10: K63.89 . 02 CPT . 865305 Performed at: 01 [facility] [address] [place] [address], [place], [place] [id number] MD Baljit Naqvi MD Phone: [phone] Performed at: 02 [facility] [address] [place], [place] [id number] MD Carolina Sutton MD Phone: [phone]
--- NOTE | 2019-03-19 11:35 | PM.PREOP ---
Pre-operative Note Interval Note History & Physical reviewed/Exam performed by Physician: Yes Changes to H&P: No ASA Class (for procedural sedation): II
[2019-03-19] MEDS: SODIUM CHLORIDE 0.9% 1,000 ML 200 ML IV (11:41)
[2019-03-19] MEDS: MIDAZOLAM 5 MG/5 ML VIAL IV (12:09)
[2019-03-19] MEDS: fentaNYL 250 MCG/5 ML INJ IV (12:10)
--- NOTE | 2019-03-19 12:13 | PM.OP.ENDO ---
Operative Date/Time/Diagnoses Date of procedure: 03/19/19 Time of procedure: 12:13 Pre-op diagnosis: History of his large bowel obstruction(sigmoid) with loop colostomy Post-op diagnosis: same (Appears to be diverticular in nature with a long segment of stricture rather than neoplastic/malignant) Procedure & Clinicians Study performed: Colonoscopy with cold biopsy Same procedure as scheduled: Yes Indications: Determine cause of obstruction Surgeon: Amrbose Parrish Procedure Notes SCOAP/Timeout: Performed Procedure in detail: The patient was placed supine on his bed and underwent IV sedation. His ostomy bag was removed and I cannulated the distal segment of the loop ostomy. I was able to thread it through a very narrowed colon that was edematous to the anus. Slowly brought the scope out an in studying the area in either direction I could find no tumor. 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 There was 1 reddened fold that I think was actually traumatic but I chose to biopsy it. It did not appear to be a neoplasm. I then removed the scope in and directed it to the proximal colon segment and passed the scope to the cecum cannulating the terminal ileum. The scope was gradually brought out. The very difficult to distend the cecum because the patient has an incompetent ileocecal valve. I could not identify any mucosal lesions going in or out except for occasional diverticuli. These were also seen in the distal segment. The scope was removed and the patient tolerated the procedure well. Scope withdrawal time: Not applicable Sedation minutes: 25 Findings: diverticulitis (Involving a long segment of the sigmoid) and diverticulosis Specimen(s): other (Biopsy) Complications: none Post-procedure Recommendations: Colonscopy in 10 years Plan for aftercare: Will plan ostomy closure and resection of the sigmoid colon. Follow up: weeks (Two) Disposition: PACU
--- NOTE | 2019-03-19 12:40 | SUR.PHASEII ---
brought in, awaiting d/c order from Pt with no complaints
--- NOTE | 2019-03-19 12:51 | SUR.PHASEII ---
Dr Parrish to bedside spoke to pt and . All ready to go.
== END 2019-03-19 13:08 | disposition home or self-care (01) ==
PROVIDERS: PCP Family Medicine; Visit Provider Specialist
PROC: 0DJD8ZZ Inspection of Lower Intestinal Tract, Via Natural or Artificial Opening Endoscopic (ICD-10-PCS; CPT 45378; principal; 2019-03-19 11:45)
DX: Z87.19 Personal history of other diseases of the digestive system (principal); Z90.49 Acquired absence of other specified parts of digestive tract; Z93.3 Colostomy status; K57.30 Diverticulosis of large intestine without perforation or abscess without bleeding
CPT/HCPCS: 45380; 99152; J2250; J3010

== ENCOUNTER → 2019-03-19 14:15 | Outpatient (CLI) | payer OTHER, SELFPAY ==
[2019-02-18 02:30] VITALS: BMI 21.2
== END ==
PROVIDERS: PCP Family Medicine; Visit Provider Family Medicine
DX: Z43.4 Encounter for attention to other artificial openings of digestive tract (principal)
CPT/HCPCS: 99212

== ENCOUNTER 2019-05-06 06:02 | Inpatient (IN) | payer OTHER, SELFPAY ==
[2019-02-18 02:30] VITALS: BMI 21.2
[2019-04-22 08:46] VITALS: BMI 22.5
[2019-05-06] VITALS (31 sets, daily range): BP systolic 77–140; BP diastolic 40–87; PULSE 78–132; RESP 9–16; TEMP 36.1–37.6; O2SAT 92–99; BMI 22.5; BMI 21.4
--- NOTE | 2019-05-06 | PATH_ITS ---
[facility] Accession Number: [id number] . 01 Material submitted: . PART A: gastrointestinal site - GASTRIC AND DUODENAL BIOPSIES PART B: peritoneum - PERITONEAL BIOPSIES PART C: body - MESENTERIC BIOPSIES PART D: peritoneum - PERITONEAL BIOPSIES PART E: small bowel - SMALL BOWEL SEROSA BIOPSIES PART F: colon - SIGMOID COLON PART G: small bowel - SEGMENT OF SMALL BOWEL . 02 Frozen section diagnosis: . FSB: DENSE FIBROUS TISSUE WITH ACTIVE INFLAMMATION-NEGATIVE FOR MALIGNANCY FSC: CELLULAR DENSE FIBROUS TISSUE. NO EVIDENCE OF AN EPITHELIAL MALIGNANCY. FAVOR REACTIVE BUT CANNOT EXCLUDE SPINDLE CELL NEOPLASM. FSD: CELLULAR FIBROUS TISSUE. NEGATIVE FOR CARCINOMA. CANNOT EXCLUDE SPINDLE CELL NEOPLASM. FSE: ACTIVE INFLAMMATION; NO EVIDENCE OF MALIGNANCY. . . Results given to Dr. Vladislav Parrish after patient identification by Dr. Vladislav Sutton, 05/06/2019. Frozen section was performed at [address] LUCI/MRV . 03 Diagnosis: A. Gastric And Duodenal Biopsies: Antral and duodenal mucosa with no diagnostic abnormality. Negative for intraepithelial lymphocytosis or villous blunting in duodenal mucosa. No evidence of Helicobacter organisms on H/E stain. Two separate fragments with foveolar hyperplasia and goblet cells, please see comment. Negative for dysplasia and malignancy. . B.- E. Peritoneal, Mesenteric, Peritoneal, Small Bowel Serosa, Biopsies: Fibroadipose tissue with active inflammation and patchy foreign body giant cell reaction to polarizable and non-polarizable foreign material. Negative for dysplasia and malignancy. . F. Sigmoid Colon, Resection: Colon segment with diverticulosis and diverticulitis. Serositis and serosal adhesions. One of two unoriented resection margins with ischemic changes. Negative for dysplasia and malignancy. . G. Segment Of Small Bowel, Resections: Four segments of small bowel with serositis and serosal adhesions with patchy foreign body giant cell reaction. Small bowel mucosa with patchy ischemia-type changes, diverticulosis, and features suggestive of chronic enteritis. Margins appear viable. Negative for dysplasia and malignancy. . . . . . . . BFI 05/11/2019 1652 Local . 03 Comment: A. Two of multiple biopsy fragments show mucosa with foveolar hyperplasia and occasional goblet cells. Because the tissue from the stomach and duodenum is combined, clinical correlation is required to determine whether this represents a reactive gastropathy with intestinal metaplasia or gastric surface foveolar metaplasia of duodenum. There is no evidence of dysplasia or malignancy. . 03 Electronically signed: . Carolina Sutton MD, Pathologist NPI- [id number] . 01 Gross description: . (A) Received in formalin, labeled gastric and duodenal biopsies, are five fragments of wright-barrett tissue (1.2 x 0.2 x 0.2 cm in aggregate). Entirely submitted in cassette A1. (B) Received in formalin, labeled peritoneum-B, is a piece of 2.0 x 1.5 x 0.2 cm barrett-pink tissue which is previously received unfixed for frozen section performed at [facility]. Remaining tissue from frozen section entirely submitted in cassettes B1 and B2 in the order received. (C) Received in formalin, labeled mesentery, are four red tissue fragments (0.1-0.3 cm) which is previously received unfixed for frozen section performed at [facility]. Remaining tissue from frozen section entirely submitted in cassette C1. (D) Received in formalin, labeled peritoneum part D, are three pieces of red and red-barrett tissue (1.1 x 0.2 x 0.2 cm, 1.0 x 0.2 x 0.2 cm, 0.8 x 0.7 x 0.2 cm) which were previously received unfixed for frozen section performed at [facility]. The remaining frozen D1 and D2 as received. (E) Received in formalin, labeled small bowel serosa, are three pieces of red-barrett tissue (0.3-0.5 cm) which were previously received unfixed for frozen section performed at [facility]. Remaining tissue from frozen section entirely submitted in cassette E1. (F) Received in formalin, labeled sigmoid colon, is an unoriented opened segment of colon (length-12.2 cm, resection margin #1 diameter-1.7 cm, resection margin #2 diameter-1.7 cm) with attached adipose tissue (up to 5.7 cm in depth). The resection margins are received stapled. The mucosa is barrett with compact distorted folds containing multiple diverticula and dark brown firm areas. No nodules, masses or lesions are identified. The resection margins are inked black. Section code: (F1) resection margin #1, longitudinal maintenance representative; (F2) resection margin #2, maintenance representative longitudinal sections; (F3-F9) maintenance representative serial sections submitted from resection margin #1 to #2. (G) Received in formalin, labeled segment of small bowel, are four unoriented small bowel segments with stapled resection margins. The segments are arbitrarily numbered for grossing purposes. . Segment #1 (length-7.5 cm, resection margin #1 diameter-2.0 cm, resection margin #2 diameter-1.5 cm), attached mesentery-(up to 2.5 cm in depth) has barrett mucosa with normal folds. No nodules, masses or lesions are identified. Two possible lymph nodes (each approximately 0.2 x 0.2 x 0.1 cm) are identified. The resection margins are inked black. Section code: (G1) resection margin #1, maintenance representative longitudinal sections; (G2) resection margin #2, maintenance representative longitudinal sections; (G3-G5) maintenance representative serial sections submitted from resection margin #1 to #2; (G6) two possible lymph nodes. . Segment #2 (length-9.3 cm, resection margin #1 diaemter-2.5 cm, resection margin #2 diameter-3.3 cm), attached mesentery-(up to 2.5 cm in depth) has barrett mucosa with normal folds. No nodules, masses or lesions are identified. The resection margins are inked black. Section code: (G7) resection margin #1, maintenance representative longitudinal sections; (G8) resection margin #2, maintenance representative longitudinal sections; (G9-G11) maintenance representative serial sections submitted from resection margin #1 to #2. . Segment #3 (length-9.7 cm, resection margin #1 diameter-2.3 cm, resection margin #2 dimeter-1.5 cm), attached mesentery (up to 1.5 cm in depth) is received partially opened and has barrett mucosa with normal folds. One lymph node (0.4 x 0.2 x 0.1 cm) is identified. No nodules, masses or lesions are identified. The resection margins are inked black. Section code: (G12) resection margin #1, maintenance representative longitudinal sections; (G13) resection margin #2, maintenance representative longitudinal sections; (G14-G16) maintenance representative serial sections submitted from resection margin #1 to #2; (G17) one intact lymph node. . Segment #4 (length-10.5 cm, resection margin #1 diameter-3.1 cm, resection margin #2 diameter-2.7 cm), attached mesentery (up to 3.0 cm in depth) is adhered to itself and has barrett mucosa with normal folds. No nodules, masses or lesions are identified. One lymph node (0.6 x 0.5 x 0.2 cm) is identified. The resection margins are inked black. Section code: (G18) resection margin #1, maintenance representative longitudinal sections; (G19) resection margin #2, maintenance representative longitudinal sections; (G20-G24) maintenance representative serial sections, submitted from resection margin #1 to #2; (G25) one intact lymph node. ([id number]) /[facility]V 05/07/2019 1706 Local . 03 Pathologist provided ICD-10: K57.50 . 03 CPT . 939696, 341642, 180374, 869922, 039706, 205650, 025511, 401338, 527753, 190249, 299038, 019395, 428107 Performed at: 01 [facility] [address] [id number] MD Baljit Naqvi MD Phone: [phone] Performed at: 02 [facility] [address] [place] [id number] MD Johanne Glover MD Phone: [phone] Performed at: 03 [facility] [address] [place] [id number] MD Carolina Sutton MD Phone: [phone]
[2019-05-06] MEDS: FLEETS ENEMA 1 EACH PR (07:00)
[2019-05-06] MEDS: LACTATED RINGERS 1,000 ML 100 ML IV ×4 (07:28→14:25)
[2019-05-06] MEDS: metroNIDAZOLE 500 MG/100 ML PIGGYBACK 100 MG IV ×4 (07:34→22:19)
[2019-05-06] MEDS: ONDANSETRON 4 MG/2 ML INJ IV (07:42)
--- NOTE | 2019-05-06 07:56 | PM.PREOP ---
Pre-operative Note Interval Note History & Physical reviewed/Exam performed by Physician: Yes Changes to H&P: No H&P completed within 30 days and has changed as indicated here:: see note 04/07
[2019-05-06] MEDS: levoFLOXacin 500 MG/100 ML PIGGYBACK 100 MG IV ×2 (08:05→13:53)
[2019-05-06] MEDS: ACETAMINOPHEN IV 1,000 MG/100 ML VIAL 400 MG IV (08:30)
--- NOTE | 2019-05-06 09:50 | SUR.OPER ---
Ureteral catheters placed by Dr. Perez, Red=left, Blue=right
--- NOTE | 2019-05-06 09:51 | SUR.OPER ---
Laparoscopic procedure transitioned to open procedure at 925
--- NOTE | 2019-05-06 09:52 | SUR.OPER ---
Request for pathologist for frozen section. Call made at 0952, Dr. Soliman
[2019-05-06 10:24] LABS: Hematocrit 42.8 % (41-53); Hemoglobin 14.9 g/dL (13.5-17.5); Mean Corpuscular HGB Conc 34.8 % (30-36); Mean Corpuscular Hemoglobin 31.4 PG (26-34); Mean Corpuscular Volume 90.1 fL (80-100); Platelet Count 290 X10^3/uL (150-400); Red Blood Cell Count 4.75 X10^6/uL (4.5-5.9); Red Cell Distribution Width 13.6 % (11.6-14.8); White Blood Cell Count 16.1 X10^3/uL (4.5-11.0)
[2019-05-06 13:25] LABS: Hematocrit 43.9 % (41-53); Hemoglobin 14.8 g/dL (13.5-17.5)
--- NOTE | 2019-05-06 18:28 | SUR.OPER ---
colostomy bag placed over ostomy site
--- NOTE | 2019-05-06 18:37 | SUR.PHASEI ---
Patient arrived alert, oriented. Denies pain and nausea. NG tube, per Dr Hickey not to suction. Dressing to abdomen CDI.Ostomy bag with no drainage. Patient on RA. LAZARO's x 4. Tachycardic with HR 115-135. Diaphoretic.
--- NOTE | 2019-05-06 18:40 | P.OP_ITS ---
Operative Date/Time/Diagnoses Date of procedure: 05/06/19 Time of procedure: 18:10 Pre-op diagnosis: Colostomy with history of diverticulitis Post-op diagnosis: same (Very extensive dense adhesions.) Procedure & Clinicians Procedure: Exploratory laparotomy, extensive adhesiolysis adding additional hours to the operation, 3 segmental small bowel resections with primary anastomosis, and sigmoid colon resection. Same procedure as scheduled: No (We were unable to close the patient's ostomy safely) Indications: Desire for ostomy closure. Resection of portion of sigmoid with diverticulitis present. Surgeon: Ambrose Parrish Flight Engineer Instructor: Nigel Azevedo Anesthesia Type: General Operative Notes Findings: Very extensive dense adhesions of small bowel to the abdominal wall and to each others loops. Inadvertent but unavoidable small-bowel injuries resulting in small bowel resections with primary stapled anastomosis. Markedly thickened sigmoid colon densely adherent to surrounding structures. Ureters carefully preserved. Closure Type: primary Specimen(s): other (Multiple frozen sections sent to rule out malignancy. For pieces of small bowel representing 3 segmental resections. Portion of colon (sigmoid)) Prosthetic devices, grafts, tissues, transplants, or devices: None Applied: catheter (Bilateral ureteral stents and Wilde catheter) Estimated Blood Loss (mL): 500 Blood products transfused: none Procedure in detail: Ureteral stents were placed by Dr. Perez of Urology preoperatively. The patient was placed in low lithotomy and prepped and draped in the usual fashion. Incision was made the left upper abdomen transversely and carried down through rectus into the peritoneal cavity. Stay suture of is of 0 Vicryl were placed in the fascia in the both the anterior and posterior fascia. A 12 mm port was inserted and additional port placed in the right mid abdomen. This was a 5 mm port. The patient had extensive adhesions it became very clear early on that this was not going to be an effective way to deal with these or to perform his operation. Therefore the ports were removed the stay sutures at the right upper quadrant incision were tied. The prior midline scar was excised and the incision carried into the peritoneal cavity. The incision was extended along its entire length slowly by releasing any adhesions on the underside of the midline. Once we had gained adequate exposure we noted small flat white nodules scattered over much of the intestinal surface. This was highly suspicious for malignancy with carcinomatosis. Before proceeding to do any major operation we decided to undertaken investigation because if these nodules represented widespread cancer there was no point proceeding. Because the patient had a colonoscopy we palpated the area of the pancreas and the stomach. The stomach was soft and pliable except in the area of the chief will. It almost seemed like there was this region. The pancreas will was soft. I reviewed the patient's prior CT with the radiologist at this time but leaving the operating room and returning and it did not appear that there was any obvious source of carcinomatosis on the CT. They did note some thickening in the region of the 1st part of the duodenum. An endoscope was obtained and inserted. The esophagus was unremarkable. The stomach insufflated well. Initially there was difficulty finding the outflow because of deformity however I was able to cannulate the duodenal bulb and 2nd part of the duodenum. There was some inflammation in the bulb but no obvious neoplastic process. Biopsies were taken in the bulb and in the area of the pylorus. The scope was retroflexed in the proximal stomach was rather normal. Scope was removed and used as a flex sig a to examine the distal segment of the intestine just to make sure had a had not missed a colon cancer during his recent evaluation. Scope was inserted to the level the ostomy from the rectum. Nothing untoward was found except some narrowing. There was no mucosal abnormality seen. Repeated frozen sections came back as scar and hypercellular but otherwise no evidence of myrna malignancy. Because of this we decided to proceed. We under took 1 of the most extensive adhesiolyses I have ever performed. This was a long tedious process requiring hours of surgical time. EEG is were quite dense and we made for enterotomies. All of these were sutured closed at the time they were made. We decided to return at the end to resect any segments necessary. Ultimately we mobilized almost all of the small intestine except for small amount the left upper quadrant. The sigmoid was densely adherent in to surrounding structures in the left lower abdomen. We decided to approach this by dividing the sigmoid just below the ostomy site. Did this using a NILS stapling device. We then had close to the bowel wall and divided the mesentery all the way to the peritoneal reflection. The tissues felt soft in that area. We identified both ureters before proceeding with this resection to make sure that we were not going to injure them. We used a contour stapling device to divide the colon between the sigmoid and rectum. Unfortunately, there was still some firm indurated tissue in that region. We contemplated long and hard whether to proceed and we packed the pelvis. We then undertook to resect the segments of small bowel that had been injured to during the very difficult adhesiolysis. Segments were resected to the level of healthy tissue. They were then closed with small bowel to small bowel anastomoses using a NILS stapling device followed by a TA to close the defect. Three small bowel sections were removed. One had 2 segments removed when we discovered there was significant serosal injury just distal to where we had transected the bowel. All the anastomoses were closed in the same way and the mesenteric defect was closed with interrupted [id number] 3 0 Vicryl. We re-evaluated once we had completed these anastomoses whether it was safe to perform a colostomy closure. Because the hardness/induration in the transection area we decided not to do that. We decided that the patient had undergone long enough operation and further adhesiolysis and mobilization of the colon was just a step too far. +would place him at risk of another anastomotic breakdown which would probably be lethal in his case. Therefore we decided not to proceed any further. The abdomen was copiously irrigated. Fluid was suctioned free. Meticulous hemostasis was achieved. The fascia was closed with a running 1. Double-armed Maxon suture with occasional interrupted 0 Maxon [id number] sutures. The subcu was irrigated and partially closed with 3 0 Vicryl. The skin was closed with tristen in all areas. A bag was applied to the ostomy site. Patient was awakened, extubated taken recovery room. Plan is potentially to perform an epidural catheter for pain control and management. Complications: other (Inadvertant but impossible to avoid small bowel injuries.) Post-operative Condition: stable Disposition: PACU Plan for aftercare: Probable transfer to the ICU for epidural catheter management.
--- NOTE | 2019-05-06 18:52 | SUR.PHASEI ---
Report given to Lita. Will transport to ICU.
[2019-05-06] MEDS: fentaNYL 100 MCG/2 ML INJ 50 MCG IV (19:06)
--- NOTE | 2019-05-06 19:14 | SUR.PHASEI ---
Dr Hickey at bedside for epidural. 50 fentanyl given pre-procedure.
--- NOTE | 2019-05-06 19:22 | SUR.PHASEI ---
Updated Lita on Epidural.
--- NOTE | 2019-05-06 19:31 | SUR.PHASEI ---
Gave 3cc 1/4% bupivicaine, Dr Hickey.
--- NOTE | 2019-05-06 19:35 | SUR.PHASEI ---
Dr Parrish at bedside removing ureteral stents.
--- NOTE | 2019-05-06 19:38 | PM.AN.REGBLK ---
Regional Block Pre-procedure Procedure: Continuous Epidural for Post-operative Pain Management PMH/ROS narrative: 54 y/o post small bowel resection, othwerwise healthy ASA Class: I Labs: Hct 43.9 % (41-53) 05/06/19 13:17 Plt Count 290 X10^3/uL (150-400) 05/06/19 10:12 Medications: Current Medications Generic Name Dose Route Start Last Admin Trade Name Freq PRN Reason Stop Dose Admin Fentanyl 100 mcg 05/06/19 17:14 Sublimaze IV Q5MIN PRN Pain, Severe (7-10) Fentanyl 50 mcg 05/06/19 17:14 05/06/19 19:06 Sublimaze IV 50 mcg Q5MIN PRN Administration Pain, Moderate (4-6) Fentanyl 25 mcg 05/06/19 17:14 Sublimaze IV Q5MIN PRN Pain, Mild (1-3) Hydromorphone HCl 1 mg 05/06/19 17:14 Dilaudid IM Q5MIN PRN Pain, Severe (7-10) Hydromorphone HCl 0.5 mg 05/06/19 17:14 Dilaudid IV Q5MIN PRN Pain, Moderate (4-6) Hydromorphone HCl 0.25 mg 05/06/19 17:14 Dilaudid IV Q5MIN PRN Pain, Mild (1-3) Lactated Ringer's 1,000 mls @ 100 mls/hr 05/06/19 06:45 05/06/19 18:51 Lactated Ringers IV Infused CONT VIOLETTE Infusion FENT 2MCG/ML BUPIV 0.125% EPI 200 mcg in 100 mls @ 5 mls/hr 05/06/19 17:15 Fentanyl/Bupiv/Ns 2mcg/Ml - 0.125% EPIDURAL CONT VIOLETTE Ondansetron HCl 4 mg 05/06/19 17:14 Zofran IV NOW PRN Nausea And Vomiting Allergies: Allergies Allergy/AdvReac Type Severity Reaction Status Date / Time Penicillins Allergy Unknown Infancy-unknown Verified 04/22/19 09:05 reaction per pt Procedure Insertion date: 05/06/19 Insertion time: 19:41 Prep/Local: betadine x3 Interspace: T 10-11 Patient position: sitting Needle: 18 gauge Sudhakartead Loss of resistance with: saline VICENTE at (cm): 6 Catheter placed at SKIN (cm): 11 Catheter in SPACE (cm): 5 Insertion: No CSF, No Blood, No Paresthesia with insertion, No Paresthesia with injection and No Test dose reaction Initial Medications TEST DOSE time: :42 TEST DOSE: 1.5% lidocaine with epinephrine 1:200k (mL): 3 BOLUS DOSE time: :42 BOLUS DOSE (mL): 3 BOLUS DOSE med: 0.25% bupivacaine Infusion INFUSION: 0.125% bupivacaine and with fentanyl 2 mcg/mL Initial rate (mL/hr): 5 Post-procedure Anesthesia time START: 19:20 Anesthesia time END: 19:38 Post-procedure Anesthesia Assessment: Yes CV function: HR/BP stable, Yes Resp function: RR/sat/airway adequate, Yes Post-op hydration adequate, Yes Pain control adequate, Yes Nausea & vomiting absent, Yes Temperature > 36 C and Yes Mental status appropriate
[2019-05-06] MEDS: FENT 2MCG/ML BUPIV 0.125% EPI 200 MCG/100 ML PLAST..BAG 5 MCG EPIDURAL (20:17)
[2019-05-06] MEDS: LACTATED RINGERS 1,000 ML 125 ML IV (20:17)
--- NOTE | 2019-05-06 20:54 | PC.ADMIT ---
[id number] Admission Note: The patient,Asad Mascorro,54 y/o, was given written information regarding hospital policies, unit procedures and contact persons. Patient's smoking status: Former smoker. Vital Signs - 8 hr 05/06/19 18:15 05/06/19 18:20 05/06/19 18:24 Temperature 97.7 F Pulse Rate 132 H 129 H 122 H Respiratory Rate 11 L 10 L 14 Blood Pressure 115/84 140/83 133/85 Pulse Oximetry 98 97 94 05/06/19 18:29 05/06/19 18:31 05/06/19 18:34 Temperature 97.6 F Pulse Rate 114 H 118 H 118 H Respiratory Rate 12 11 L 12 Blood Pressure 126/84 126/84 113/83 Pulse Oximetry 96 97 97 05/06/19 18:39 05/06/19 18:49 05/06/19 19:15 Temperature 96.9 F L Pulse Rate 112 H 109 H 117 H Respiratory Rate 13 10 L 10 L Blood Pressure 122/86 120/83 118/83 Pulse Oximetry 97 96 98 05/06/19 19:19 Temperature Pulse Rate 114 H Respiratory Rate 10 L Blood Pressure 124/85 Pulse Oximetry 96 Patient over from pacu at 1940. Patient was and is awake, alert and oriented. Bulky drsg to mid abd is CDI, colostomy bag empty (no drainage at this time), stoma pink in color. Epidural just started d/t SBP where <90, per start the epidural at 2ml/hr and continue to watch BP which is set at q5min. Patient over with NG tube, seen and got verbal order to place patient on low intermittent suction. Patient tolerating ice chips well. Family at bedside.
[2019-05-07] VITALS (8 sets, daily range): BP systolic 121–137; BP diastolic 68–95; PULSE 101–115; RESP 14–18; TEMP 37–37.4; O2SAT 95–98
[2019-05-07] MEDS: metroNIDAZOLE 500 MG/100 ML PIGGYBACK 100 MG IV ×4 (04:57→23:49)
[2019-05-07] MEDS: LACTATED RINGERS 1,000 ML 125 ML IV ×2 (04:59→16:32)
[2019-05-07 05:02] LABS: Alanine Aminotransferase 67 IU/L (21-72); Albumin 3.4 g/dL (3.5-5.0); Albumin Globulin Ratio 1.4 (1.0-2.8); Alkaline Phosphatase 67 U/L (38-126); Aspartate Aminotransferase 130 IU/L (17-59); BUN Creatinine Ratio 21.1 (6-22); Bilirubin Total 0.4 mg/dL (0.2-1.3); Blood Urea Nitrogen 19 mg/dL (9-20); Calcium 8.4 mg/dL (8.4-10.2); Carbon Dioxide 24 mmol/L (22-32); Chloride 105 mmol/L (98-107); Estimated Glomerular Filt Rate > 60.0 mL/min (>60); Globulin 2.4 g/dL (1.7-4.1); Glucose 170 mg/dL (70-100); HEMOLYSIS < 15 (0-50); Magnesium 1.6 mg/dL (1.6-2.3); Potassium 4.7 mmol/L (3.4-5.1); Sodium 135 mmol/L (137-145); Total Protein 5.8 g/dL (6.3-8.2)
[2019-05-07 05:09] LABS: Add Manual Diff / Slide Review NO; Basophils Absolute Auto 0 /uL (0-100); Basophils Percent Auto 0.1 % (0-2); Eosinophils Absolute Auto 0 /uL (0-450); Hematocrit 43.2 % (41-53); Hemoglobin 14.6 g/dL (13.5-17.5); Lymphocytes Absolute Auto 500 /uL (1100-4500); Lymphocytes Percent Auto 3.2 % (25-40); Mean Corpuscular HGB Conc 33.8 % (30-36); Mean Corpuscular Hemoglobin 30.8 PG (26-34); Mean Corpuscular Volume 91.1 fL (80-100); Monocytes Absolute Auto 1500 /uL (0-900); Neutrophils Absolute Auto 14400 /uL (1500-7000); Neutrophils Percent Auto 87.7 % (50-75); Platelet Count 268 X10^3/uL (150-400); Red Blood Cell Count 4.74 X10^6/uL (4.5-5.9); Red Cell Distribution Width 13.5 % (11.6-14.8); White Blood Cell Count 16.4 X10^3/uL (4.5-11.0)
--- NOTE | 2019-05-07 07:03 | PC.NURSE ---
NOC Shift: POD 1 bowel lysis of adhesions intention to take down existing ostomy however once in OR this did not occur and pt had long surgical intervention. Pt AAOx3, epidural Bup/Fentanyl increased to 5ml/hr through shift per order. Pt tolerating, VSS and sensation noted to T9. Has incisional pain 2/10 but mostly complains of right bicep pain, and rib pain. States he feels like he's been beat up, just sore everywhere. Pt dangled and stood at bedside w/o difficulty, ambulating a few steps in room to stretch and to change out bed. NPO except ice chips. Hyperactive BT's, dsg CDI, stoma moist, pink. No output or gas. NG to LIS. Floor care.
--- NOTE | 2019-05-07 07:53 | PM.PN.1 ---
Subjective Subjective Date Patient Seen: 05/07/19 Time Patient Seen: 07:54 Interval history: POD#1 small bowel resection, sigmoid resection, exploratory laparotomy, TONY. T10-11 TEP in situ with good pain control. Able to stand last pm, no narcotics given overnight, VSS. Exam Vital Signs (past 8 hours): - 05/07/19 01:47 05/07/19 04:39 05/07/19 07:39 Temperature 98.8 F 99.4 F Pulse Rate 115 H 106 H Respiratory Rate 18 14 Blood Pressure 127/89 122/75 Pulse Oximetry 98 95 97 Oxygen Delivery Method Room Air Oxygen Flow Rate 96 Neuro General: alert, awake and oriented x3 Sensory Exam: other (TEP T10-11 test to cold sensation: block intact R T8-L1, L T9-T12. ) Objective Labs Result Diagrams: 05/07/19 04:40 05/07/19 04:40 Labs: Laboratory Results - last 24 hr 05/06/19 05/06/19 05/06/19 10:12 10:12 13:17 WBC 16.1 H RBC 4.75 Hgb 14.9 14.8 Hct 42.8 43.9 MCV 90.1 MCH 31.4 MCHC 34.8 RDW 13.6 Plt Count 290 Neut % (Auto) Lymph % (Auto) Bartholomew % (Auto) Eos % (Auto) Baso % (Auto) Neut # (Auto) Lymph # (Auto) Bartholomew # (Auto) Eos # (Auto) Baso # (Auto) Sodium Potassium Chloride Carbon Dioxide BUN Creatinine Estimated GFR BUN/Creatinine Ratio Glucose Calcium Magnesium Total Bilirubin AST ALT Alkaline Phosphatase Total Protein Albumin Globulin Albumin/Globulin Ratio Blood Type O Positive Antibody Screen Negative 05/07/19 05/07/19 04:40 04:40 WBC 16.4 H RBC 4.74 Hgb 14.6 Hct 43.2 MCV 91.1 MCH 30.8 MCHC 33.8 RDW 13.5 Plt Count 268 Neut % (Auto) 87.7 H Lymph % (Auto) 3.2 L Bartholomew % (Auto) 9.0 Eos % (Auto) 0.0 L Baso % (Auto) 0.1 Neut # (Auto) 46066 H Lymph # (Auto) 500 L Bartholomew # (Auto) 1500 H Eos # (Auto) 0 Baso # (Auto) 0 Sodium 135 L Potassium 4.7 Chloride 105 Carbon Dioxide 24 BUN 19 Creatinine 0.90 Estimated GFR > 60.0 BUN/Creatinine Ratio 21.1 Glucose 170 H Calcium 8.4 Magnesium 1.6 Total Bilirubin 0.4 AST 130 H ALT 67 Alkaline Phosphatase 67 Total Protein 5.8 L Albumin 3.4 L Globulin 2.4 Albumin/Globulin Ratio 1.4 Blood Type Antibody Screen Assessment & Plan Assessment & Plan narrative: TEP intact, functioning well with good coverage over surgical incision. Pt has needed no narcotic for breakthrough, and BP holding well with no episodes of hypotension as infusion titrated up to 5mL/h overnight. To begin lovenox 40mg sc qd today. Ok with indwelling catheter. Will coordinate catheter withdrawal 12h after last dose when clinically appropriate. Continue current rate through today and tonight, reassess tomorrow am. Will d/w gen surg timing re: discharge plans. OK to ambulate with PT assistance/assessment for LE strength, as hip flexor strength may be compromised. Quality VTE Deep Vein Thrombosis/Pulmonary Embolism Present on Admission: No
[2019-05-07] MEDS: ENOXAPARIN 40 MG/0.4 ML SYRINGE SUBCUT (08:33)
[2019-05-07] MEDS: PANTOPRAZOLE 40 MG VIAL IV (08:33)
--- NOTE | 2019-05-07 09:48 | PT.IIE ---
Current Diagnoses Diverticulitis of intestine, part unspecified, without perforation or abscess without bleeding (05/06/19) Surgery Performed Operation Date: 05/06/19 07:45 Actual Procedures p Laparoscopic to Open laparotomy; Colostomy, EGD with biopsies, Colonoscopy - Ambrose Parrish MD s Open Removal Sigmoid Colon, removal of small bowel segment - MD roe Oropeza Cystoscopy w/ Placement bilateral localizing ureteral stents - Kathy Perez MD Surgical History (Last Updated 04/22/19 @ 09:01 by Geno Barroso, RN) S/P laparotomy (Acute 02/18/19) Medical History (Last Updated 04/22/19 @ 09:15 by Geno Barroso RN) Abnormal weight loss (Acute) Colostomy in place (Acute 02/18/19) Diverticulitis (Acute) Psoriasis (Acute) Physical Therapy Inpatient Evaluation/Re-Eval M1 PT/OT-IP Prior Functional Status Start: 05/07/19 12:00 Freq: NEEDED Status: Active Protocol: Document 05/07/19 09:48 AB (Rec: 05/07/19 12:26 AB [email or web address]) Medical Review Prior Functional Status Medical History Reviewed Yes Communication able to make needs known Mobility and Gait pt stated that he is independent with all mobilities and ambulation without AD Social History Household Members spouse Living Arrangements House Number of Floors (Floors) Two Floors Number of Stairs To Enter/Railing? 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 PT-IP Current Condition Start: 05/07/19 12:00 Freq: NEEDED Status: Active Protocol: Document 05/07/19 09:48 AB (Rec: 05/07/19 12:26 AB [email or web address]) Physical Therapy Current Condition Current Condition Evaluation Date 05/07/19 Treatment Diagnosis large bowel obstruction s/p ex -lap; difficulty in walking Onset Date 05/06/19 Precautions Abdominal Surgery Precautions Log Roll,Lifting Restrictions, Gait Belt above Incisional Area M3 PT-IP Subjective Start: 05/07/19 12:00 Freq: NEEDED Status: Active Protocol: Document 05/07/19 09:48 AB (Rec: 05/07/19 12:26 AB [email or web address]) Subjective Physical Therapy Visit Type Type Initial Evaluation Visit Start Time 09:48 Visit Stop Time 10:22 Total Visit Minutes 34 Number of BOWLING OR SKATING FRONT DESK CLERK Visits 0 Physical Therapy Visit Comments Patient Comments pt initially wants to walk but upon sitting on EOB refused to do ambulation Therapy Pain Assessment Pain Present Pain Present Denied Pain M4 PT-IP Mobility and Gait Start: 05/07/19 12:00 Freq: NEEDED Status: Active Protocol: Document 05/07/19 09:48 AB (Rec: 05/07/19 12:26 AB [email or web address]) PT-Bed Mobility Assessment Rolling Type of Rolling Log Rolling Level of Assist Standby Assistance Supine to Sit Supine to Sit Contact Guard Assistance Scooting Scooting to Edge of Bed Standby Assistance PT-Transfer Assessment Sit to and From Stand Sit to and from Stand Contact Guard Assistance,1 Person Assistance Comments Mobility Comments pt completed supine to sit log roll CGA and cues. pt was able to sit on EOB SBA. placed safety belt on but pt does not want the safety belt on and refused to do ambulation. stated that he just wants to sit on the EOB. refused to transfer on to the chair recliner. agreed to stand but without the safety belt. completed CGA. able to stand using FWW CGA and took ~ 2 steps towards HOB but has to sit back down. pt seems to get anxious easily. stated that he just wants to sit on EOB. Call light placed within reach. informed pt and spouse to ask for assistance when pt is ready to lie back down. informed nurse that pt wants to sit on EOB for now and refused to sit on the chair. PT-Balance Assessment Sitting Balance and Reactions Static Sitting Balance Ability Good Dynamic Sitting Balance Ability Good Standing Balance and Reactions Static Standing Balance Ability Fair Dynamic Standing Balance Ability Fair Device Used FWW M5 PT-IP Objective Assessments Start: 05/07/19 12:00 Freq: NEEDED Status: Active Protocol: Document 05/07/19 09:48 AB (Rec: 05/07/19 12:26 AB [email or web address]) Orientation Orientation/Cognition Level of Alertness Alert Orientation Name,Situation Language Function Ability Hard of Hearing Safety Awareness Decreased Safety Awareness Gross Range of Motion Lower Extremity ROM Assessment Within Functional Limits Strength Lower Extremity Strength Assessment Within Functional Limits Sensation Assessment Sensation Gross Sensation WNL Muscle Tone Muscle Tone WNL Yes M6 PT-IP Treatment Start: 05/07/19 12:00 Freq: NEEDED Status: Active Protocol: Document 05/07/19 09:48 AB (Rec: 05/07/19 12:26 AB [email or web address]) Physical Therapy Treatment Education Education Provided Precautions,Safety M7 PT-IP Assessment and Plan Start: 05/07/19 12:00 Freq: NEEDED Status: Active Protocol: Document 05/07/19 09:48 AB (Rec: 05/07/19 12:26 AB [email or web address]) PT Summary Assessment and Plan Potential Rehabilitation Potential Good Status of Condition at Evaluation Evolving Summary Impairments Pain,ROM,Strength,Balance, Coordination,Sensation,Tone, Cognition,Bed Mobility, Transfers,Gait,Activity Tolerance Assessment Summary pt requiring CGA with sit to stand. refused to do ambulation but able to take side steps using FWW CGA. pt unable to tolerate much activity and seems to get anxious easily. d/c plan depending on progress but pt planst o go home and spouse will be able to assist pt. will conduct caregiver training when appropriate. Goals Bed Mobility Goal Independent Transfer Goal Independent,Front Wheeled Walker Gait Goal Independent,Front Wheel Walker Gait Distance 250 Other Goals improve ambulation SPC/without AD ~ 200 ft SBA improve stair climbin steps using R rail ascending SBA Days to Meet Goals 10 Frequency of Treatment Frequency Of Treatment Once a Day Treatment Plan Physical Therapy Treatment Plan Bed Mobility Training,Transfer Training,Gait Training, Therapeutic Exercise,Balance Retraining,Post Op Education, Discharge Planning,Hot or Cold Pack,Neuromuscular Re-ed, Coordination Retraining,Manual Therapy Other Recommendations and Next Treatment ambulation Focus Recommendations To Nursing Amount of Assist Needed 1 Person Assist Discharge Recommendations PT Discharge Recommendations Home with 28/01 Assist,Home Health,SNF Rehab Equipment Needed for Home Before FWW if pt goes home and not Discharge safe without AD/SPC
[2019-05-07] MEDS: levoFLOXacin 500 MG/100 ML PIGGYBACK 100 MG IV (13:58)
--- NOTE | 2019-05-07 15:56 | CM.DANOTE ---
DCP Cont: Per MD, pt is progressing and will d/c cath soon and work with PT for ambulation. Per RN, pt doing well and currently no concerns. Per PT, pt able to participate with therapy today and spouse was bedside as well and spouse available to assist at d/c. Recommending home with 24/ vs SNF pending pt's progress. PT will complete further CG training tomorrow. Pt was previously admitted to [facility] in February 2019 this year and was able to d/c home with very large supportive family all living on [facility] and local supportive friends. Plan: SW to follow for further PT with ongoing CG training to confirm if pt is safe for d/c home with spouse and family assist. CATIE Calvilol
[2019-05-07] MEDS: FENT 2MCG/ML BUPIV 0.125% EPI 200 MCG/100 ML PLAST..BAG 4 MCG EPIDURAL (17:52)
[2019-05-08] VITALS (9 sets, daily range): BP systolic 134–149; BP diastolic 78–93; PULSE 93–119; RESP 16; TEMP 36.6–37.2; O2SAT 94–99
[2019-05-08] MEDS: LACTATED RINGERS 1,000 ML 125 ML IV ×2 (03:40→14:53)
[2019-05-08 05:03] LABS: Add Manual Diff / Slide Review NO; Basophils Absolute Auto 0 /uL (0-100); Basophils Percent Auto 0.2 % (0-2); Eosinophils Absolute Auto 0 /uL (0-450); Hematocrit 33.3 % (41-53); Hemoglobin 11.7 g/dL (13.5-17.5); Lymphocytes Absolute Auto 700 /uL (1100-4500); Lymphocytes Percent Auto 5.5 % (25-40); Mean Corpuscular Hemoglobin 31.5 PG (26-34); Monocytes Absolute Auto 1200 /uL (0-900); Monocytes Percent Auto 9.3 % (3-14); Neutrophils Absolute Auto 11400 /uL (1500-7000); Platelet Count 217 X10^3/uL (150-400); Red Cell Distribution Width 13.5 % (11.6-14.8); White Blood Cell Count 13.4 X10^3/uL (4.5-11.0)
[2019-05-08 05:08] LABS: BUN Creatinine Ratio 24.3 (6-22); Blood Urea Nitrogen 17 mg/dL (9-20); Calcium 8.2 mg/dL (8.4-10.2); Carbon Dioxide 29 mmol/L (22-32); Chloride 102 mmol/L (98-107); Estimated Glomerular Filt Rate > 60.0 mL/min (>60); Glucose 132 mg/dL (70-100); HEMOLYSIS < 15 (0-50); Potassium 4.4 mmol/L (3.4-5.1); Sodium 137 mmol/L (137-145)
[2019-05-08] MEDS: metroNIDAZOLE 500 MG/100 ML PIGGYBACK 100 MG IV ×4 (05:18→23:55)
[2019-05-08] MEDS: HYDROMORPHONE 1 MG INJ 0.5 MG IV ×4 (08:34→22:54)
[2019-05-08] MEDS: PANTOPRAZOLE 40 MG VIAL IV (08:34)
--- NOTE | 2019-05-08 10:04 | PT.IPTN ---
Current Diagnoses Diverticulitis of intestine, part unspecified, without perforation or abscess without bleeding (05/06/19) Surgery Performed Operation Date: 05/06/19 07:45 Actual Procedures p Laparoscopic to Open laparotomy; Colostomy, EGD with biopsies, Colonoscopy - Ambrose Parrish MD s Open Removal Sigmoid Colon, removal of small bowel segment - MD roe Oropeza Cystoscopy w/ Placement bilateral localizing ureteral stents - Kathy Perez MD Physical Therapy Treatment Note M2 PT-IP Current Condition Start: 05/07/19 12:00 Freq: NEEDED Status: Active Protocol: Document 05/07/19 09:48 AB (Rec: 05/07/19 12:26 AB [email or web address]) Physical Therapy Current Condition Current Condition Evaluation Date 05/07/19 Treatment Diagnosis large bowel obstruction s/p ex -lap; difficulty in walking Onset Date 05/06/19 Precautions Abdominal Surgery Precautions Log Roll,Lifting Restrictions, Gait Belt above Incisional Area M3 PT-IP Subjective Start: 05/07/19 12:00 Freq: NEEDED Status: Active Protocol: Document 05/08/19 09:49 LRN (Rec: 05/08/19 10:04 [email or web address] [email or web address]) Subjective Physical Therapy Visit Type Type Treatment Note Visit Start Time 09:25 Visit Stop Time 09:50 Total Visit Minutes 25 Notes Nursing reports pain med given 8:30am, and Epidural came out . IV removed at start of therapy. Number of SECURITIES ADVISER Visits 0 Physical Therapy Visit Comments Patient Comments Pt receptive to therapy. States yesterday his back and skin was painful and couldn't tolerate use of gait belt. Today pain is 5/10. Therapy Pain Assessment Pain When Pain Assessed At Rest Pain Present Pain Present Pain Reported Location abdomen Intensity 5 Scale Used Rascon-Ayoub (Faces) M4 PT-IP Mobility and Gait Start: 05/07/19 12:00 Freq: NEEDED Status: Active Protocol: Document 05/08/19 09:49 LRN (Rec: 05/08/19 10:04 LRN [email or web address]) PT-Bed Mobility Assessment Rolling Level of Assist Standby Assistance Supine to Sit Supine to Sit Standby Assistance Scooting Scooting to Edge of Bed Standby Assistance PT-Transfer Assessment Sit to and From Stand Sit to and from Stand Independent,Standby Assistance ,1 Person Assistance Equipment Transfer Assistive Device Gait Belt,Front Wheeled Walker Transfer Ability Level of Assist Independent,Standby Assistance Comments Mobility Comments Sit > Stand: V. Cuing needed, no physical assist given. GB placed high. No pillow was required at abdomen for transfer. Stand > Sit: Independently and safely. Gait Assessment Gait Gait Assistance Required: Independent,Standby Assistance Distance (Feet) 150 Able to Maintain Weight Bearing Status Yes During Gait Assistive Devices Assistive Device Gait Belt,Front Wheeled Walker Gait Deviations General Gait Pattern Decreased Stride Length,Flexed Trunk Factors Limiting Gait Function Factors Limiting Gait Function Pain Comments Gait Comments Pt able to obtain an improved posture when verbally cued, but slowly returns to flexed trunk due to pain. Pt did not require a pillow to abdomen during gait. M5 PT-IP Objective Assessments Start: 05/07/19 12:00 Freq: NEEDED Status: Active Protocol: Document 05/07/19 09:48 AB (Rec: 05/07/19 12:26 AB [email or web address]) Orientation Orientation/Cognition Level of Alertness Alert Orientation Name,Situation Language Function Ability Hard of Hearing Safety Awareness Decreased Safety Awareness Gross Range of Motion Lower Extremity ROM Assessment Within Functional Limits Strength Lower Extremity Strength Assessment Within Functional Limits Sensation Assessment Sensation Gross Sensation WNL Muscle Tone Muscle Tone WNL Yes M6 PT-IP Treatment Start: 05/07/19 12:00 Freq: NEEDED Status: Active Protocol: Document 05/08/19 09:49 LRN (Rec: 05/08/19 10:04 LRN [email or web address]) Physical Therapy Treatment Exercises Exercises Ankle Pumps,Quad Sets Other Treatments Other Treatment Performed Brief review of sitting exercises after gait. M7 PT-IP Assessment and Plan Start: 05/07/19 12:00 Freq: NEEDED Status: Active Protocol: Document 05/08/19 09:49 LRN (Rec: 05/08/19 10:04 LRN [email or web address]) PT Summary Assessment and Plan Potential Rehabilitation Potential Excellent Status of Condition at Evaluation Evolving Summary Impairments Pain,ROM,Strength,Balance,Bed Mobility,Transfers,Gait, Activity Tolerance Assessment Summary Pt much improved in mobility with decrease skin sensitivity from epidural. He appears to have a high pain tolerance ( no need for pillow at abdomen with transfer and gait), and therefore may tend to overexert with activity. Pt would benefit from instructions on use of pillow for transfers and gait with expected increase pain as his activity level increases. Pt demonstrates a protective core posturing. Goals Bed Mobility Goal Independent Transfer Goal Independent,Front Wheeled Walker Gait Goal Independent,Front Wheel Walker Gait Distance 250 Other Goals improve ambulation SPC/without AD ~ 200 ft SBA improve stair climbin steps using R rail ascending SBA Days to Meet Goals 10 Frequency of Treatment Frequency Of Treatment Once a Day Treatment Plan Physical Therapy Treatment Plan Bed Mobility Training,Transfer Training,Gait Training, Therapeutic Exercise,Balance Retraining,Post Op Education, Discharge Planning,Hot or Cold Pack,Neuromuscular Re-ed, Coordination Retraining,Manual Therapy Other Recommendations and Next Treatment Transfer training with Focus education on use of pillow to abdomen for pain management. Try gait with SPC and progress endurance. Train for stair ambulation before DC. Cuing for upright posturing. Recommendations To Nursing Amount of Assist Needed 1 Person Assist Discharge Recommendations PT Discharge Recommendations Home with Assistance Equipment Needed for Home Before FWW or SPC if pt goes home. Discharge Further assessment is needed to determine if not safe without AD/SPC.
--- NOTE | 2019-05-08 11:31 | PC.NURSE ---
0800 Pt initially put his call light on and requested an increase in epidural rate d/t increasing abdominal pain. Pt reported pain at 5/10 in the abdomen. Epidural block assessed and no block was detected, pt had full sensation in all dermatomes. Pt's epidural catheter then assessed and dressing noted to be rolled up on edges and epidural catheter was unintentionally removed. Pt given 0.5 mg iv dilaudid at that time, with pain level down to 4/10 and pt reports this is tolerable. Pt ambulating with PT around unit. MD to bedside to evaluate, transfer orders received, order received to remove ahrtley. MD notified that pt's HR has been 110s consistently this hospitalization. Orders for UA received. Will continue to monitor, notify MD with changes.
--- NOTE | 2019-05-08 11:36 | PM.PN.1 ---
Subjective Subjective Date Patient Seen: 05/08/19 Time Patient Seen: 11:36 Interval history: Epidural catheter came out last over night. Pain controlled with IV Dilaudid. Pt ambulating. Denies nausea. Reports dry mouth. Exam Vital Signs (past 8 hours): - 05/08/19 04:31 05/08/19 08:00 Temperature 97.9 F 98.9 F Pulse Rate 113 H 113 H Respiratory Rate 16 16 Blood Pressure 136/93 H 149/78 H Pulse Oximetry 98 94 Oxygen Delivery Method Room Air Oxygen Flow Rate 0 Narrative Exam Narrative: Exam: Alert, oriented, comfortable NGT in place with serosanguinous output Dry oral mucosa Normal respirations on room air Slightly tachycardic 100-115 Abdomen soft, nondistended, appropriate TTP incisions c/d/i Ostomy p/p, gas in the bag, but no stool no LE edema Hartley in place with light yellow urine Objective Labs Result Diagrams: 05/08/19 04:33 05/08/19 04:33 Labs: Laboratory Results - last 24 hr 05/08/19 05/08/19 04:33 04:33 WBC 13.4 H RBC 3.70 L Hgb 11.7 L Hct 33.3 L MCV 90.0 MCH 31.5 MCHC 35.0 RDW 13.5 Plt Count 217 Neut % (Auto) 85.0 H Lymph % (Auto) 5.5 L [place] % (Auto) 9.3 Eos % (Auto) 0.0 L Baso % (Auto) 0.2 Neut # (Auto) 47251 H Lymph # (Auto) 700 L [place] # (Auto) 1200 H Eos # (Auto) 0 Baso # (Auto) 0 Sodium 137 Potassium 4.4 Chloride 102 Carbon Dioxide 29 BUN 17 Creatinine 0.70 Estimated GFR > 60.0 BUN/Creatinine Ratio 24.3 H Glucose 132 H Calcium 8.2 L Assessment & Plan Assessment and plan (1) Large bowel obstruction: Problem details: POD#2 s/p Ex lap, extensive lysis of adhesions for frozen abdomen, SBR with anastomosis x 3, sigmoid resection, and biopsy of peritoneal implants. Colostomy remains in place. The patient is doing well. WBC coming down, pain well controlled, gas in the bag but no real ostomy output. NGT output remains ~1500/24 hours. Plan: Remove hartley catheter Transfer to floor status IV pain med DVT ppx Continue abx for now Send UA continue IV fluids 125/hr Continue NGT to LIWS Ambulate TID 20 minutes or more Current visit: No Status: Acute (2) History of colostomy: Problem details: As above Current visit: No Status: Acute Quality VTE Deep Vein Thrombosis/Pulmonary Embolism Present on Admission: No
[2019-05-08 13:02] LABS: Appearance Urine UA CLOUDY; Bilirubin Urine UA NEGATIVE (NEGATIVE); Color Urine UA YELLOW; Glucose Urine UA NEGATIVE (Negative); Ketones Urine UA 1+ (NEGATIVE); Leukocyte Esterase Urine UA TRACE (NEGATIVE); Nitrite Urine UA NEGATIVE (Negative); Occult Blood Urine UA 3+ (Negative); Protein Urine UA TRACE (Negative); Urobilinogen Urine UA 0.2 E.U./dL (0.2)
[2019-05-08 13:13] LABS: Bacteria Urine Occasional (0-1); RBC Urine >100/HPF (0-5/HPF); WBC Urine >100/HPF (0-5/HPF)
[2019-05-08 13:14] LABS: Culture Indicated Urine Specimen Cultured
[2019-05-08] MEDS: ENOXAPARIN 40 MG/0.4 ML SYRINGE SUBCUT (13:52)
[2019-05-08] MEDS: levoFLOXacin 500 MG/100 ML PIGGYBACK 100 MG IV (13:52)
[2019-05-08] MEDS: SODIUM CHLORIDE 0.9% 1,000 ML 1000 ML IV ×2 (17:47→22:51)
--- NOTE | 2019-05-08 18:18 | PM.PNPO.1 ---
Subjective Subjective Date Patient Seen: 05/07/19 Time Patient Seen: 11:19 Interval history: Patient postop day 1. Comfortable with his epidural in. Making good urine. Wilde is in. I have removed his ureteral stents yesterday in the recovery room. He is breathing well. He has been out of bed. Ambulated a short amount with PT in the room. Does have some sore areas of on his buttock where he had laid for so long. Exam Vital Signs (past 8 hours): - 05/08/19 11:58 05/08/19 15:59 05/08/19 16:09 Temperature 98.3 F 98.3 F Pulse Rate 93 H 107 H Respiratory Rate 16 16 Blood Pressure 141/81 H 139/86 Pulse Oximetry 97 98 98 Oxygen Delivery Method Room Air Oxygen Flow Rate 0 Narrative Exam Narrative: Cooperative no apparent distress. Lungs are clear. Excellent effort. Heart regular rate and rhythm without murmur gallop. Abdomen is soft. Ostomy is viable. No unusual tenderness. Dressing was left intact. Objective Labs Result Diagrams: 05/08/19 04:33 05/08/19 04:33 Labs: Laboratory Results - last 24 hr 05/08/19 05/08/19 05/08/19 04:33 04:33 11:33 WBC 13.4 H RBC 3.70 L Hgb 11.7 L Hct 33.3 L MCV 90.0 MCH 31.5 MCHC 35.0 RDW 13.5 Plt Count 217 Neut % (Auto) 85.0 H Lymph % (Auto) 5.5 L [place] % (Auto) 9.3 Eos % (Auto) 0.0 L Baso % (Auto) 0.2 Neut # (Auto) 85756 H Lymph # (Auto) 700 L [place] # (Auto) 1200 H Eos # (Auto) 0 Baso # (Auto) 0 Sodium 137 Potassium 4.4 Chloride 102 Carbon Dioxide 29 BUN 17 Creatinine 0.70 Estimated GFR > 60.0 BUN/Creatinine Ratio 24.3 H Glucose 132 H Calcium 8.2 L Urine Color Yellow Urine Appearance Cloudy Urine pH 8.0 Ur Specific [place] 1.010 Urine Protein Trace H Urine Glucose (UA) Negative Urine Ketones 1+ H Urine Occult Blood 3+ H Urine Nitrate Negative Urine Bilirubin Negative Urine Urobilinogen 0.2 Ur Leukocyte Esterase Trace H Urine RBC >100/hpf Urine WBC >100/hpf H Urine Bacteria Occasional (0-1) Ur Culture Indicated? Specimen cultured Assessment & Plan Post-op Postoperative Procedures: Procedures Operation Date: 05/06/19 07:45 Actual Procedures Side Surgeon p Laparoscopic to Open laparotomy; Colostomy, EGD with biopsies, Colonoscopy Ambrose Parrish MD s Open Removal Sigmoid Colon, removal of small bowel segment Ambrose Parrish MD s Cystoscopy w/ Placement bilateral localizing ureteral stents Kathy Perez MD Postoperative day: 1 Postoperative status: doing well Postoperative plan narrative: Continue IV antibiotics. Continue epidural. Continue Wilde. Continue NG tube. Can have a cup of ice chips a shift. Quality VTE Deep Vein Thrombosis/Pulmonary Embolism Present on Admission: No
[2019-05-09] VITALS (8 sets, daily range): BP systolic 130–141; BP diastolic 73–91; PULSE 84–100; RESP 16–17; TEMP 36.9–37.6; O2SAT 96–98
[2019-05-09] MEDS: HYDROMORPHONE 1 MG INJ 0.5 MG IV ×2 (02:42→22:02)
[2019-05-09 05:50] LABS: Add Manual Diff / Slide Review NO; Basophils Absolute Auto 0 /uL (0-100); Basophils Percent Auto 0.3 % (0-2); Eosinophils Absolute Auto 0 /uL (0-450); Eosinophils Percent Auto 0.5 % (2-4); Hematocrit 29.5 % (41-53); Hemoglobin 10.3 g/dL (13.5-17.5); Lymphocytes Absolute Auto 1000 /uL (1100-4500); Lymphocytes Percent Auto 9.5 % (25-40); Mean Corpuscular HGB Conc 34.9 % (30-36); Mean Corpuscular Hemoglobin 31.6 PG (26-34); Mean Corpuscular Volume 90.7 fL (80-100); Monocytes Absolute Auto 800 /uL (0-900); Neutrophils Absolute Auto 8400 /uL (1500-7000); Neutrophils Percent Auto 81.7 % (50-75); Platelet Count 194 X10^3/uL (150-400); Red Blood Cell Count 3.25 X10^6/uL (4.5-5.9); Red Cell Distribution Width 13.3 % (11.6-14.8); White Blood Cell Count 10.3 X10^3/uL (4.5-11.0)
[2019-05-09] MEDS: metroNIDAZOLE 500 MG/100 ML PIGGYBACK 100 MG IV ×3 (05:57→17:59)
[2019-05-09 06:11] LABS: BUN Creatinine Ratio 18.3 (6-22); Blood Urea Nitrogen 11 mg/dL (9-20); Calcium 8.2 mg/dL (8.4-10.2); Carbon Dioxide 28 mmol/L (22-32); Chloride 104 mmol/L (98-107); Estimated Glomerular Filt Rate > 60.0 mL/min (>60); Glucose 96 mg/dL (70-100); HEMOLYSIS < 15 (0-50); Magnesium 1.8 mg/dL (1.6-2.3); Sodium 138 mmol/L (137-145)
[2019-05-09] MEDS: LACTATED RINGERS 1,000 ML 125 ML IV ×2 (08:00→20:50)
--- NOTE | 2019-05-09 09:18 | PM.PN.1 ---
Subjective Subjective Date Patient Seen: 05/09/19 Time Patient Seen: 09:00 Interval history: No acute events overnight. The patient has been ?burping ?his ostomy bag. He has seen at fill with significant amounts of gas several times. Pain is well controlled on minimal IV pain medication. He has been ambulating well. Exam Vital Signs (past 8 hours): - 05/09/19 05:51 05/09/19 08:00 Temperature 98.4 F 99.6 F Pulse Rate 94 H 93 H Respiratory Rate 17 16 Blood Pressure 138/87 135/86 Pulse Oximetry 98 96 Oxygen Delivery Method Room Air Oxygen Flow Rate 0 Narrative Exam Narrative: Alert, oriented, comfortable NGT in place with serosanguinous output Dry oral mucosa Normal respirations on room air Heart rate regular, 93 Abdomen soft, nondistended, appropriate TTP incisions c/d/i Ostomy p/p, gas in the bag, but no stool no LE edema Objective Labs Result Diagrams: 05/09/19 05:15 05/09/19 05:19 Labs: Laboratory Results - last 24 hr 05/08/19 05/09/19 05/09/19 11:33 05:15 05:19 WBC 10.3 RBC 3.25 L Hgb 10.3 L Hct 29.5 L MCV 90.7 MCH 31.6 MCHC 34.9 RDW 13.3 Plt Count 194 Neut % (Auto) 81.7 H Lymph % (Auto) 9.[address] [place] % (Auto) 8.0 Eos % (Auto) 0.5 L Baso % (Auto) 0.3 Neut # (Auto) 8400 H Lymph # (Auto) [address] [place] # (Auto) 800 Eos # (Auto) 0 Baso # (Auto) 0 Sodium 138 Potassium 4.0 Chloride 104 Carbon Dioxide 28 BUN 11 Creatinine 0.60 L Estimated GFR > 60.0 BUN/Creatinine Ratio 18.3 Glucose 96 Calcium 8.2 L Magnesium 1.8 Urine Color Yellow Urine Appearance Cloudy Urine pH 8.0 Ur Specific [place] 1.010 Urine Protein Trace H Urine Glucose (UA) Negative Urine Ketones 1+ H Urine Occult Blood 3+ H Urine Nitrate Negative Urine Bilirubin Negative Urine Urobilinogen 0.2 Ur Leukocyte Esterase Trace H Urine RBC >100/hpf Urine WBC >100/hpf H Urine Bacteria Occasional (0-1) Ur Culture Indicated? Specimen cultured Assessment & Plan Assessment and plan (1) Large bowel obstruction: Problem details: POD#3 s/p Ex lap, extensive lysis of adhesions for frozen abdomen, SBR with anastomosis x 3, sigmoid resection, and biopsy of peritoneal implants. Colostomy remains in place. The patient is doing well. WBC normalized, pain well controlled, gas in the bag but no real ostomy output. NGT output remains 1L/24 hours. He received 2 x 1 L saline boluses last night, with improvement in his tachycardia and urine output. Plan: IV pain med as needed DVT ppx Continue abx for now, will plan to stop them tomorrow if white count remains normal continue IV fluids 125/hr Continue NGT to LIWS, clamp NG tube for 4 hours and check residual, will consider removing NG tube if residual is low Ambulate TID 20 minutes or more Current visit: No Status: Acute Time Spent With Patient Time with patient: 15-24 minutes Quality VTE Deep Vein Thrombosis/Pulmonary Embolism Present on Admission: No
[2019-05-09] MEDS: ENOXAPARIN 40 MG/0.4 ML SYRINGE SUBCUT (09:21)
[2019-05-09] MEDS: PANTOPRAZOLE 40 MG VIAL IV (09:21)
[2019-05-09] MEDS: MAGNESIUM SULFATE 2 GM/50 ML PIGGYBACK IV (09:25)
[2019-05-09] MEDS: SODIUM CHLORIDE 0.9% FLUSH 10 ML IV (09:25)
--- NOTE | 2019-05-09 12:53 | PC.NURSE ---
AM shift pt AO and receptive to care. More melancholy than in previous interactions. NG tube on low/intermittent suction this AM. PIV infusing LR at 125/hr. ABD pad to midline incision is CDI, colostomy is beef-red and bag being burped by patient. pt alloloted 1 cup ice chips per shift, pt hasn't requested any thus far. Dr. Bolton ordered a 4 hour NG clamp assessment. NG clamped at 0945. pt reporting improvement with pain since the clamping and states pain is 1/10, but more pressure than pain.
[2019-05-09] MEDS: levoFLOXacin 500 MG/100 ML PIGGYBACK 100 MG IV (14:07)
--- NOTE | 2019-05-09 14:22 | PC.NURSE ---
NG tube removed. pt tolerated well. Per Dr. Bolton, pt was on an NG clamping trial for the past 4 hours. When hooked back up to suction, pt had approximately 50mL of clear fluid in tubing. Dr. Bolton gave a telephone order to remove and monitor. pt allow ice chips and small sips and if tolerates well throughout the night, pt allowed clears for breakfast.
--- NOTE | 2019-05-09 15:28 | PT.IPTN ---
Current Diagnoses Unspecified intestinal obstruction, unspecified as to partial versus complete obstruction (05/06/19) Diverticulitis of intestine, part unspecified, without perforation or abscess without bleeding (05/06/19) Surgery Performed Operation Date: 05/06/19 07:45 Actual Procedures p Laparoscopic to Open laparotomy; Colostomy, EGD with biopsies, Colonoscopy - Ambrose Parrish MD s Open Removal Sigmoid Colon, removal of small bowel segment - Ambrose Parrish MD s Cystoscopy w/ Placement bilateral localizing ureteral stents - Kathy Perez MD Physical Therapy Treatment Note M2 PT-IP Current Condition Start: 05/07/19 12:00 Freq: NEEDED Status: Active Protocol: Document 05/07/19 09:48 AB (Rec: 05/07/19 12:26 AB [email or web address]) Physical Therapy Current Condition Current Condition Evaluation Date 05/07/19 Treatment Diagnosis large bowel obstruction s/p ex -lap; difficulty in walking Onset Date 05/06/19 Precautions Abdominal Surgery Precautions Log Roll,Lifting Restrictions, Gait Belt above Incisional Area M3 PT-IP Subjective Start: 05/07/19 12:00 Freq: NEEDED Status: Active Protocol: Document 05/09/19 15:19 GGD (Rec: 05/09/19 15:28 GGD [id number]) Subjective Physical Therapy Visit Type Type Treatment Note Visit Start Time 14:55 Visit Stop Time 15:20 Total Visit Minutes 25 Physical Therapy Visit Comments Patient Comments Pt states he doing better and willing to work with therapy. M4 PT-IP Mobility and Gait Start: 05/07/19 12:00 Freq: NEEDED Status: Active Protocol: Document 05/09/19 15:19 GGD (Rec: 05/09/19 15:28 GGD [id number]) PT-Bed Mobility Assessment Rolling Type of Rolling Log Rolling Level of Assist Independent Supine to Sit Supine to Sit Independent Sit to Supine Sit to Supine Independent Scooting Scooting to Edge of Bed Independent PT-Transfer Assessment Sit to and From Stand Sit to and from Stand Independent,Use of Upper Extremities Equipment Transfer Assistive Device None Transfer Ability Level of Assist Independent Gait Assessment Gait Gait Assistance Required: Independent Distance (Feet) 610 Assistive Devices Assistive Device None Gait Deviations General Gait Pattern Flexed Trunk Factors Limiting Gait Function Factors Limiting Gait Function Pain Comments Gait Comments Pt ambulated pusing IV pole Stair Climbing Assessment Evaluation Level of Assist On Stairs Independent Devices Stair Climbing Assistive Devices Right Railing Technique/Endurance Stair Climbing Direction Ascend and Descend Stair Climbing Technique Step Over Step Number of Steps Climbed 3 Stair Climbing Set # Repetitions (reps) 1 M5 PT-IP Objective Assessments Start: 05/07/19 12:00 Freq: NEEDED Status: Active Protocol: Document 05/07/19 09:48 AB (Rec: 05/07/19 12:26 AB [email or web address]) Orientation Orientation/Cognition Level of Alertness Alert Orientation Name,Situation Language Function Ability Hard of Hearing Safety Awareness Decreased Safety Awareness Gross Range of Motion Lower Extremity ROM Assessment Within Functional Limits Strength Lower Extremity Strength Assessment Within Functional Limits Sensation Assessment Sensation Gross Sensation WNL Muscle Tone Muscle Tone WNL Yes M6 PT-IP Treatment Start: 05/07/19 12:00 Freq: NEEDED Status: Active Protocol: Document 05/09/19 15:19 GGD (Rec: 05/09/19 15:28 GGD [id number]) Physical Therapy Treatment Education Education Provided Precautions,Safety M7 PT-IP Assessment and Plan Start: 05/07/19 12:00 Freq: NEEDED Status: Active Protocol: Document 05/09/19 15:19 GGD (Rec: 05/09/19 15:28 GGD [id number]) PT Summary Assessment and Plan Summary Assessment Summary Pt improve with mobility. He was independent with bed mobility. He was steady and stable with gait. He had no LOB with stair mobility. Pt met all therapy goals and has no need for skill PT. Pt safe for home D/C when medically stable. Frequency of Treatment Frequency Of Treatment Discharge Recommendations To Nursing Amount of Assist Needed Independent Discharge Recommendations PT Discharge Recommendations Home with Assistance
[2019-05-09] MEDS: ACETAMINOPHEN 325 MG TABLET 650 MG PO (18:00)
--- NOTE | 2019-05-09 21:24 | PC.NURSE ---
Pt ambulating in hallway. Rates pain 4-5/10. Taking 650 mg APAP for day pain. 275 mLs out of ostomy this shift; 175 mLs dark urine. Tolerating full liquids. Able to sleep. Spouse in room.
[2019-05-10] VITALS (9 sets, daily range): BP systolic 124–152; BP diastolic 72–93; PULSE 77–91; RESP 16–20; TEMP 36.8–37.2; O2SAT 97–99
[2019-05-10] MEDS: metroNIDAZOLE 500 MG/100 ML PIGGYBACK 100 MG IV ×2 (00:39→05:13)
[2019-05-10] MEDS: ACETAMINOPHEN 325 MG TABLET 650 MG PO ×2 (00:48→10:16)
--- NOTE | 2019-05-10 01:11 | PC.NURSE ---
Addendum entered by Hiwot Daily R.N. 05/10/19 05:17: Up in chair part of night and now back in bed. Emptied colostomy earlier of 125cc dark brown/green liquid. States pain is currently 4/10 but declines offer of pain medication. Original Note: Patient is alert and oriented. Breath sounds CTA with RA sat of 97%. HRR. Denies nausea. BT present. Colostomy with dark brown liquid in bag; patient independent with colostomy care. Incision to right of ostomy with dressing which is CDI; incision below is stapled, well approximated and without redness. Abdomen is soft but tender. Denies dysuria, frequency or urgency. Independent with mobility. Complains of 4/10 incisional pain; medicated with Tylenol and is aware he can have more Dilaudid anytime after 0200. Declines use of SCD's as has been getting up independently. Fall risk score is moderate but has been cleared by PT for independence. rooming in.
[2019-05-10] MEDS: LACTATED RINGERS 1,000 ML 125 ML IV (05:13)
[2019-05-10 05:42] LABS: Add Manual Diff / Slide Review NO; Basophils Absolute Auto 0 /uL (0-100); Basophils Percent Auto 0.5 % (0-2); Eosinophils Absolute Auto 300 /uL (0-450); Eosinophils Percent Auto 2.9 % (2-4); Hematocrit 29.9 % (41-53); Hemoglobin 10.7 g/dL (13.5-17.5); Lymphocytes Absolute Auto 1000 /uL (1100-4500); Lymphocytes Percent Auto 11.8 % (25-40); Mean Corpuscular HGB Conc 35.8 % (30-36); Mean Corpuscular Hemoglobin 31.8 PG (26-34); Mean Corpuscular Volume 88.7 fL (80-100); Monocytes Absolute Auto 600 /uL (0-900); Neutrophils Absolute Auto 6800 /uL (1500-7000); Neutrophils Percent Auto 77.8 % (50-75); Platelet Count 242 X10^3/uL (150-400); Red Blood Cell Count 3.37 X10^6/uL (4.5-5.9); White Blood Cell Count 8.7 X10^3/uL (4.5-11.0)
[2019-05-10 05:56] LABS: Blood Urea Nitrogen 9 mg/dL (9-20); Calcium 8.1 mg/dL (8.4-10.2); Carbon Dioxide 27 mmol/L (22-32); Chloride 102 mmol/L (98-107); Estimated Glomerular Filt Rate > 60.0 mL/min (>60); Glucose 94 mg/dL (70-100); HEMOLYSIS < 15 (0-50); Magnesium 1.7 mg/dL (1.6-2.3); Potassium 3.1 mmol/L (3.4-5.1); Sodium 136 mmol/L (137-145)
[2019-05-10] MEDS: ENOXAPARIN 40 MG/0.4 ML SYRINGE SUBCUT (08:51)
[2019-05-10] MEDS: POTASSIUM CHLORIDE 20 MEQ TAB 40 MEQ PO (08:51)
[2019-05-10] MEDS: MAGNESIUM SULFATE 2 GM/50 ML PIGGYBACK IV (08:52)
[2019-05-10] MEDS: PANTOPRAZOLE 40 MG VIAL IV (08:52)
--- NOTE | 2019-05-10 09:13 | PM.PN.1 ---
Subjective Subjective Date Patient Seen: 05/10/19 Time Patient Seen: 08:30 Interval history: No acute events overnight. NG tube was removed yesterday after minimal residual on for our clamping trial and patient passed a significant volume of liquid stool into his back. He denies any nausea since the NG tube was removed. Pain is well controlled on Tylenol and minimal narcotic pain medication. Exam Vital Signs (past 8 hours): - 05/10/19 03:29 Temperature 98.5 F Pulse Rate 77 Respiratory Rate 20 Blood Pressure 124/72 Pulse Oximetry 97 Oxygen Delivery Method Room Air Oxygen Flow Rate 0 Narrative Exam Narrative: Alert, oriented, comfortable Boys oral mucosa Normal respirations on room air Regular rate and rhythm, pulse 78 Abdomen soft, nondistended, appropriate TTP incisions c/d/i Ostomy p/p/p, copious thin green liquid stool in the bag no LE edema Objective Labs Result Diagrams: 05/10/19 05:11 05/10/19 05:11 Labs: Laboratory Results - last 24 hr 05/10/19 05/10/19 05:11 05:11 WBC 8.7 RBC 3.37 L Hgb 10.7 L Hct 29.9 L MCV 88.7 MCH 31.8 MCHC 35.8 RDW 13.0 Plt Count 242 Neut % (Auto) 77.8 H Lymph % (Auto) 11.8 L [place] % (Auto) 7.0 Eos % (Auto) 2.9 Baso % (Auto) 0.5 Neut # (Auto) 6800 Lymph # (Auto) 1000 L [place] # (Auto) 600 Eos # (Auto) 300 Baso # (Auto) 0 Sodium 136 L Potassium 3.1 L Chloride 102 Carbon Dioxide 27 BUN 9 Creatinine 0.60 L Estimated GFR > 60.0 BUN/Creatinine Ratio 15.0 Glucose 94 Calcium 8.1 L Magnesium 1.7 Assessment & Plan Assessment and plan (1) Large bowel obstruction: Problem details: POD#4 s/p Ex lap, extensive lysis of adhesions for frozen abdomen, SBR with anastomosis x 3, sigmoid resection, and biopsy of peritoneal implants. Colostomy remained in place. The patient is doing well. WBC normalized, pain well controlled, liquid stool in the bag. Patient tolerated NG tube being out with no nausea overnight. Labs and vitals continue to look good, and the patient appears comfortable and nontoxic. His potassium is low today at 3.1 as well as his magnesium, 1.7 likely due to minimal p.o. intake, and return of bowel function. Plan: Replete potassium 40 mEq p.o. now, replete magnesium with 2 g now Recheck electrolytes at 2:00 p.m. and replete again P.o. and IV pain med as needed DVT ppx DC antibiotics continue IV fluids 125/hr, will cut down depending on p.o. tolerance of clears Will consider advancing diet to full liquids this evening if all goes well Ambulate TID 20 minutes or more Current visit: No Status: Acute (2) Hypokalemia: Problem details: Due to NPO status, replete Current visit: Yes Status: Acute (3) Hypomagnesemia: Problem details: Due to NPO status, replete Current visit: Yes Status: Acute Quality VTE Deep Vein Thrombosis/Pulmonary Embolism Present on Admission: No
--- NOTE | 2019-05-10 14:25 | PC.NURSE ---
Day Shift- Pt A&OX4, able to make needs known using call light. Up in dep in room and ambulating in halls with steady gait using IV pole. Rates 4-5/10 aching, non tender to abd. PRN Tylenol effective and last given at 1015. Left side abd colostomy pouch intact. Midline incision and 2 small abd incisions well approximated with tristen intact. Loose abd pad in place. Left message with MARTITA Farrell in PACU to relay message to Dr. Bolton at 1415 for request to change prn Tylenol from Q6hr to Q4hr. Pt updated with this information at 1425. At 1450, spoke with Dr. Bolton via phone, Dr to place orders in computer. PRN oxycodone given at 1506, pain management plan discussed. IVF decreased to 75ml per order. Pt and his Melani who has been intermittently at bedside updated with 1400 lab draw. Pt may have full liquids, pudding given to pt with prn pain med. Pt aware to call kitchen to order full liquid dinner. Pt had not increase in abd pain, cramping, nausea after tolerating clear liquid diet for breakfast and lunch.
[2019-05-10 14:33] LABS: Blood Urea Nitrogen 8 mg/dL (9-20); Calcium 7.9 mg/dL (8.4-10.2); Carbon Dioxide 28 mmol/L (22-32); Chloride 100 mmol/L (98-107); Estimated Glomerular Filt Rate > 60.0 mL/min (>60); Glucose 128 mg/dL (70-100); HEMOLYSIS < 15 (0-50); Potassium 3.5 mmol/L (3.4-5.1); Sodium 136 mmol/L (137-145)
[2019-05-10] MEDS: OXYCODONE IR 5 MG TABLET PO ×2 (15:06→19:55)
[2019-05-10] MEDS: LACTATED RINGERS 1,000 ML 75 ML IV (18:14)
[2019-05-11] VITALS (8 sets, daily range): BP systolic 130–145; BP diastolic 78–98; PULSE 76–97; RESP 16–18; TEMP 36.3–37.3; O2SAT 96–100
[2019-05-11 05:55] LABS: Add Manual Diff / Slide Review NO; Basophils Absolute Auto 0 /uL (0-100); Basophils Percent Auto 0.6 % (0-2); Eosinophils Absolute Auto 300 /uL (0-450); Eosinophils Percent Auto 3.9 % (2-4); Hematocrit 32.4 % (41-53); Hemoglobin 11.1 g/dL (13.5-17.5); Lymphocytes Absolute Auto 1100 /uL (1100-4500); Lymphocytes Percent Auto 13.7 % (25-40); Mean Corpuscular HGB Conc 34.3 % (30-36); Mean Corpuscular Hemoglobin 30.9 PG (26-34); Monocytes Absolute Auto 700 /uL (0-900); Monocytes Percent Auto 8.9 % (3-14); Neutrophils Absolute Auto 5600 /uL (1500-7000); Neutrophils Percent Auto 72.9 % (50-75); Platelet Count 258 X10^3/uL (150-400); White Blood Cell Count 7.7 X10^3/uL (4.5-11.0)
[2019-05-11 05:58] LABS: Blood Urea Nitrogen 5 mg/dL (9-20); Calcium 8.2 mg/dL (8.4-10.2); Carbon Dioxide 28 mmol/L (22-32); Chloride 103 mmol/L (98-107); Estimated Glomerular Filt Rate > 60.0 mL/min (>60); Glucose 107 mg/dL (70-100); HEMOLYSIS < 15 (0-50); Magnesium 1.8 mg/dL (1.6-2.3); Potassium 3.3 mmol/L (3.4-5.1); Sodium 137 mmol/L (137-145)
--- NOTE | 2019-05-11 06:25 | CM.MNRNOTE ---
Denies pain all shift & no C/O nausea. UP & ambulating in the hallway, spouse reports he would like to go home today. Will cont. POC & monitor.
[2019-05-11] MEDS: LACTATED RINGERS 1,000 ML 75 ML IV (07:04)
[2019-05-11] MEDS: ENOXAPARIN 40 MG/0.4 ML SYRINGE SUBCUT (10:27)
[2019-05-11] MEDS: PANTOPRAZOLE 40 MG VIAL IV (10:28)
--- NOTE | 2019-05-11 12:09 | PC.NURSE ---
Addendum entered by Lilly Waters R.N. 05/11/19 14:19: GI/PAIN - Charlotte Mosesas in and reviewed colostomy care and provided supplies to pt to take home when discharged, earlier 1/2 tab percolone providing adequate relief. Addendum entered by Lilly Waters R.N. 05/11/19 13:17: GI/PAIN - after vick lunch full liq, states pain incr due to practicing chairs, discussed tylenol or oxycodone, prefers oxycodone at this time, would like to take only 2.5mg, spoke Charlotte who will be arriving shortly to instruct pt w/colostomy care and provide supplies for home. Original Note: AM NOTE - pt is alert, sitting up bed, ambul room and hallway this am, declines tylenol or narcotic at this time, states he is hoping to go home today, vick full liq, colosotomy with mushy dark green stool and air, hypo bt present.
[2019-05-11] MEDS: OXYCODONE IR 5 MG TABLET PO ×2 (13:10→20:23)
--- NOTE | 2019-05-11 13:50 | PC.NURSE ---
Ostomy Nurse Note Patient's called and said they were leaving today and needed ostomy supplies. I called his nurse, Lilly and she asked if I would put supplies together for Asad. I came up and met with Asad and Natasha, his . I gave them 45mm wafers and pouches. I will order samples and will see which appliance Asad likes and once he decides I will set him up with [facility] for continual product supply. I will follow upon discharge.
--- NOTE | 2019-05-11 17:03 | PM.PNPO.1 ---
Subjective Subjective Date Patient Seen: 05/11/19 Time Patient Seen: 15:03 Interval history: The patient is a gentleman who had an exploratory laparotomy, it very difficult he has a lysis with multiple enterotomies and resection of his sigmoid colon. He is doing well. Pain is well controlled. Ostomy output has begun. On full liquids and tolerating it well. Exam Vital Signs (past 8 hours): - 05/11/19 12:00 05/11/19 15:30 Temperature 98.4 F 97.4 F L Pulse Rate 86 76 Respiratory Rate 18 16 Blood Pressure 138/78 134/79 Pulse Oximetry 96 99 Oxygen Delivery Method Room Air Oxygen Flow Rate 0 Narrative Exam Narrative: Abdomen is a little distended but soft. Ostomy output is normal in color. Not yet formed. Midline is intact. No cellulitis. Port sites are also benign in appearance. Objective Labs Result Diagrams: 05/11/19 05:18 05/11/19 05:18 Labs: Laboratory Results - last 24 hr 05/11/19 05/11/19 05:18 05:18 WBC 7.7 RBC 3.60 L Hgb 11.1 L Hct 32.4 L MCV 90.0 MCH 30.9 MCHC 34.3 RDW 13.0 Plt Count 258 Neut % (Auto) 72.9 Lymph % (Auto) 13.7 L [place] % (Auto) 8.9 Eos % (Auto) 3.9 Baso % (Auto) 0.6 Neut # (Auto) 5600 Lymph # (Auto) 1100 [place] # (Auto) 700 Eos # (Auto) 300 Baso # (Auto) 0 Sodium 137 Potassium 3.3 L Chloride 103 Carbon Dioxide 28 BUN 5 L Creatinine 0.50 L Estimated GFR > 60.0 BUN/Creatinine Ratio 10.0 Glucose 107 H Calcium 8.2 L Magnesium 1.8 Assessment & Plan Post-op Postoperative Procedures: Procedures Operation Date: 05/06/19 07:45 Actual Procedures Side Surgeon p Laparoscopic to Open laparotomy; Colostomy, EGD with biopsies, Colonoscopy Ambrose Parrish MD s Open Removal Sigmoid Colon, removal of small bowel segment Ambrose Parrish MD s Cystoscopy w/ Placement bilateral localizing ureteral stents Kathy Perez MD Postoperative status: doing well Postoperative status narrative: Acute blood loss anemia secondary to operation is stable. White blood cell count is back to normal. Diff is normal. Platelet count is okay. Postoperative plan narrative: Stop IV fluids and Hep-Lock IV. Advance diet. Probable discharge in the morning. Quality VTE Deep Vein Thrombosis/Pulmonary Embolism Present on Admission: No
--- NOTE | 2019-05-11 23:36 | PC.NURSE ---
pt tolerated his regular diet. pain controlled with 2.5mg oxycodone. colostomy had brow liquid stool out. ambulated in hallways x 2. dressing cdi. call light in reach.
[2019-05-12] MEDS: OXYCODONE IR 5 MG TABLET PO ×3 (00:18→09:49)
[2019-05-12 00:19] VITALS: BP 146/92; PULSE 83; RESP 16; TEMP 36.7; O2SAT 98
[2019-05-12 00:20] VITALS: O2SAT 98
[2019-05-12 05:42] LABS: Add Manual Diff / Slide Review NO; Basophils Absolute Auto 0 /uL (0-100); Basophils Percent Auto 0.4 % (0-2); Eosinophils Absolute Auto 400 /uL (0-450); Eosinophils Percent Auto 4.1 % (2-4); Hematocrit 33.8 % (41-53); Hemoglobin 11.6 g/dL (13.5-17.5); Lymphocytes Absolute Auto 1700 /uL (1100-4500); Lymphocytes Percent Auto 18.4 % (25-40); Mean Corpuscular HGB Conc 34.2 % (30-36); Mean Corpuscular Hemoglobin 30.8 PG (26-34); Monocytes Absolute Auto 1000 /uL (0-900); Monocytes Percent Auto 10.5 % (3-14); Neutrophils Absolute Auto 6000 /uL (1500-7000); Neutrophils Percent Auto 66.6 % (50-75); Platelet Count 284 X10^3/uL (150-400); Red Blood Cell Count 3.76 X10^6/uL (4.5-5.9); Red Cell Distribution Width 13.1 % (11.6-14.8); White Blood Cell Count 9.1 X10^3/uL (4.5-11.0)
[2019-05-12 05:49] LABS: BUN Creatinine Ratio 16.7 (6-22); Blood Urea Nitrogen 10 mg/dL (9-20); Calcium 8.7 mg/dL (8.4-10.2); Carbon Dioxide 29 mmol/L (22-32); Chloride 101 mmol/L (98-107); Estimated Glomerular Filt Rate > 60.0 mL/min (>60); Glucose 103 mg/dL (70-100); HEMOLYSIS < 15 (0-50); Magnesium 1.8 mg/dL (1.6-2.3); Potassium 3.5 mmol/L (3.4-5.1); Sodium 137 mmol/L (137-145)
[2019-05-12 08:00] VITALS: BP 140/105; PULSE 91; RESP 18; TEMP 36.8; O2SAT 96; O2SAT 98
[2019-05-12] MEDS: SODIUM CHLORIDE 0.9% FLUSH 10 ML IV (09:40)
[2019-05-12] MEDS: ENOXAPARIN 40 MG/0.4 ML SYRINGE SUBCUT (09:42)
[2019-05-12] MEDS: PANTOPRAZOLE 40 MG VIAL IV (09:42)
--- NOTE | 2019-05-12 10:07 | P.DS_ITS ---
History of Present Illness History of Present Illness Date Patient Seen: 05/12/19 Time Patient Seen: 10:00 Chief complaint: [id number] Narrative: Patient is a gentleman brought for a sigmoid resection and colostomy closure. He had an emergent diversion for large bowel obstruction initially thought secondary to tumor based on CT scanning and palpation intraoperatively but on colonoscopy was found to only have diverticulitis. Discharge Providers Provider Date of admission: 05/06/19 06:02 Discharge Date: 05/12/19 Primary care physician: Bradley Acosta MD Consults: 05/06/19 19:57 Consult to Discharge Planning Routine Comment: 05/06/19 19:58 Consult to Physical Therapy Evaluate & Treat Comment: Physician Instructions: Evaluate and Treat Discharge provider: Ambrose Parrish MD Summary Hospital Course Discharge Diagnosis: One diverticulitis chronic Two Hypokalemia acute resolved Three acute blood loss anemia secondary to operation Hospital Course: Patient underwent exploration was found to have very dense adh esions and lesion suspicious for malignancy on the surface of his intestine. Multiple frozen sections were negative for malignancy. He had multiple enterotomies to suffering his small bowel. He underwent resection of his sigmoid and the stump was not soft and pliable and it was decided that would be unsafe to reanastomose him. He was left with his pre existing colostomy. The distal loop was a blind end. His postoperative course was remarkably smooth. He was gradually advanced on a diet and discharged to follow up in the office. Status at Discharge Cognitive/behavioral status at discharge: oriented Functional status at discharge: independent ambulation Overall status at discharge: patient is progressing back to baseline Exam Vital Signs (past 8 hours): - 05/12/19 08:00 Temperature 98.2 F Pulse Rate 91 H Respiratory Rate 18 Blood Pressure 140/105 H Pulse Oximetry 98 Oxygen Delivery Method Room Air Oxygen Flow Rate 0 Objective Labs Result Diagrams: 05/12/19 05:08 05/12/19 05:08 Labs: Laboratory Results - last 24 hr 05/12/19 05/12/19 05:08 05:08 WBC 9.1 RBC 3.76 L Hgb 11.6 L Hct 33.8 L MCV 90.0 MCH 30.8 MCHC 34.2 RDW 13.1 Plt Count 284 Neut % (Auto) 66.6 Lymph % (Auto) 18.4 L [place] % (Auto) 10.5 Eos % (Auto) 4.1 H Baso % (Auto) 0.4 Neut # (Auto) 6000 Lymph # (Auto) 1700 [place] # (Auto) 1000 H Eos # (Auto) 400 Baso # (Auto) 0 Sodium 137 Potassium 3.5 Chloride 101 Carbon Dioxide 29 BUN 10 Creatinine 0.60 L Estimated GFR > 60.0 BUN/Creatinine Ratio 16.7 Glucose 103 H Calcium 8.7 Magnesium 1.8 Discharge Plan Discharge Plan Patient Disposition: Home Discharge comment: Please taking multiple vitamin with iron Discharge Med Rec/Prescriptions Prescriptions: New oxycodone-acetaminophen [Percocet] 5-325 mg tablet 1 tab PO Q4-6H PRN (Reason: painful procedure) Qty: 10 RF: 0 Continued erythromycin 500 mg tablet 1,000 mg PO TID Qty: 6 RF: 0 neomycin 500 mg tablet 1 gram PO TID 0 Days Qty: 6 RF: 0 Follow up/Referrals: Ambrose Parrish MD [Physician] - 05/20/19 11:45 am (Please call my office and make an appointment to see me in about 1 week your appoinment is scheduled for 05/20 @ 11:45 please notify the office as soon as possible if this time will not work.please try to arrive 15minutes prior to scheduled appointment I need to get the tristen out. If you need to reach a doctor after hours please call our office and listen to the entire message. At the end you will be connected with the page paper cone machine operator who will page the doctor on-call.) Bradley Acosta MD [Primary Care Provider] - Provider Discharge Instructions Diet: Diet as Tolerated Activity: Do not lift over 10 lb or strain for the next 5 weeks. You may walk. No pool or tub for at least 2 weeks. Skin/Wound/Dressing Care Report to your healthcare provider any signs of infection, such as:: increased pain, unusual drainage and unusual redness Visit Report/Discharge Packet Instructions: Exploratory Laparotomy, [facility]: Wound Care Discharge Data Primary Care Provider: Bradley Acosta Quality VTE Deep Vein Thrombosis/Pulmonary Embolism Present on Admission: No
--- NOTE | 2019-05-12 11:11 | PC.NURSE ---
Addendum entered by Lilly Waters R.N. 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 Original Note: AM NOTE - pt is alert, seated window seat, ambul indep in room and to br, abd slightly distended, hyper bt this am, colostomy w/soft dark green stool, stoma pink, stapled incisions w/o redness or drainage, some surrounding bruising, vick gen diet this am, states abd discomfort 5 on scale 0/10, [place] been doing a lot of walking, given oxycodone 5mg po after meal, Dr. Parrish in this am and pt will dc home today, script for oxycodone given to spouse who will fill at [facility] prior to discharge, priority board for [address] to [place] provided. Belongings gathered and taken to car, including clothing, suitcases x3 bedding, cell phones, tablet, radio news writer, mak, room decorations.
--- NOTE | 2019-05-14 08:14 | OP_ITS ---
DATE OF SERVICE: 05/06/2019 PREOP DIAGNOSIS: Complicated diverticulitis. POSTOP DIAGNOSIS: Complicated diverticulitis. PROCEDURE: Cystoscopy and placement of bilateral localizing ureteral stents (4- Anguillan). SURGEON: Kathy Perez MD FINANCIAL BUSINESS ANALYST: Not dictated. ANESTHESIA: General. FINDINGS: Urethra normal. External sphincter coactive. Prostate 3.5-cm length of mild lateral lobe hyperplasia. Bladder trace trabeculation. Normal orifices bilaterally. There is no stone, tumor, or foreign body visualized. A 4-Anguillan blue-labeled ureteral catheter was inserted into the right side, and a red- labeled 4-Anguillan ureteral catheter was placed in the left side. The 10 endoscope was then backloaded off the localizing ureteral stent, and a 16-Anguillan Wilde catheter was inserted in the bladder. Balloon was inflated 10 cc and was put to gravity drainage. Each of the ureteral stents were then internalized through the female flange of the Wilde catheter to create internal drainage. They were secured to the Wilde with an Opsite dressing. The catheter was then placed to gravity drainage. Asad Mascorro - SANYA/molly/enio doc#: [id number]/job#: [id number] dd: 05/12/2019 18:22:00 dt: 05/13/2019 08:43:00 DICTATING MD/COPIES TO: Kathy Perez MD ; Ambrose Parrish MD COPIES MNE: ABELINO CRUZ
== END 2019-05-12 12:05 | disposition home or self-care (01) | DRG 330 ==
LOC: AC 06:49 → ICU 13:00 → AC 05-08 15:20
PROVIDERS: Anesthesiology; Specialist; Surgery; Admitting Provider Specialist; PCP Family Medicine; Visit Provider Specialist
PROC: 0DBE0ZZ Excision of Large Intestine, Open Approach (ICD-10-PCS; CPT 44620; principal; 2019-05-06 07:45)
PROC: 0DBE0ZZ Excision of Large Intestine, Open Approach (ICD-10-PCS; CPT 44140; 2019-05-06 07:45)
DX: Z43.3 Encounter for attention to colostomy (principal); K91.71 Accidental puncture and laceration of a digestive system organ or structure during a digestive system procedure; K57.32 Diverticulitis of large intestine without perforation or abscess without bleeding; D62 Acute posthemorrhagic anemia; K66.8 Other specified disorders of peritoneum; I95.9 Hypotension, unspecified; K66.0 Peritoneal adhesions (postprocedural) (postinfection); Y83.8 Other surgical procedures as the cause of abnormal reaction of the patient, or of later complication, without mention of misadventure at the time of the procedure; Y92.234 Operating room of hospital as the place of occurrence of the external cause; E87.6 Hypokalemia; E83.42 Hypomagnesemia
CPT/HCPCS: 36415; 44120; 44121; 80048; 80053; 81001; 83735; 85014; 85018; 85025; 85027; 86850; 86900; 86901; 87086; 97116; 97162; 97530; 99406; C9113; J0131; J1100; J1170; J1650; J1956; J2250; J2405; J2704; J3010

== ENCOUNTER → 2023-10-09 10:25 | Outpatient (CLI) | payer OTHER, SELFPAY ==
[2019-05-06 20:29] VITALS: BMI 21.4
[2023-10-09 19:46] LABS: Add Manual Diff / Slide Review NO; Basophils Absolute Auto 100 /uL (0-100); Basophils Percent Auto 0.6 % (0-2); Eosinophils Absolute Auto 200 /uL (0-450); Eosinophils Percent Auto 1.4 % (2-4); Hematocrit 42.3 % (41-53); Hemoglobin 14.3 g/dL (13.5-17.5); Lymphocytes Absolute Auto 1700 /uL (1100-4500); Lymphocytes Percent Auto 14.7 % (25-40); Mean Corpuscular HGB Conc 33.7 % (30-36); Mean Corpuscular Hemoglobin 30.4 PG (26-34); Mean Corpuscular Volume 90.2 fL (80-100); Monocytes Absolute Auto 900 /uL (0-900); Monocytes Percent Auto 7.8 % (3-14); Neutrophils Absolute Auto 8700 /uL (1500-7000); Neutrophils Percent Auto 75.5 % (50-75); Platelet Count 304 X10^3/uL (150-400); Red Blood Cell Count 4.69 X10^6/uL (4.5-5.9); White Blood Cell Count 11.5 X10^3/uL (4.5-11.0)
[2023-10-09 19:47] LABS: Alanine Aminotransferase 37 IU/L (<50); Albumin 4.2 g/dL (3.5-5.0); Albumin Globulin Ratio 1.6 (1.0-2.8); Alkaline Phosphatase 90 U/L (38-126); Aspartate Aminotransferase 28 IU/L (17-59); BUN Creatinine Ratio 21.6 (6-22); Bilirubin Total 0.8 mg/dL (0.2-1.3); Blood Urea Nitrogen 16 mg/dL (9-20); C-Reactive Protein Quant 1.8 mg/dL (<1.0); Calcium 9.2 mg/dL (8.4-10.2); Carbon Dioxide 26 mmol/L (22-32); Chloride 102 mmol/L (98-107); Cholesterol 201 mg/dL (140-199); Estimated Glomerular Filt Rate > 60 mL/min (>60); Globulin 2.7 g/dL (1.7-4.1); Glucose 101 mg/dL (70-100); HDL Cholesterol 49 mg/dL (40-60); HEMOLYSIS 18 (0-50); LDL Cholesterol Calculated 122 mg/dL (<100); Potassium 3.7 mmol/L (3.4-5.1); Sodium 138 mmol/L (137-145); Total Protein 6.9 g/dL (6.3-8.2); Triglycerides 152 mg/dL (35-150); Uric Acid 6.3 mg/dL (3.5-8.5)
[2023-10-09 19:50] LABS: Rheumatoid Factor < 8.6 IU/mL (<12.0)
[2023-10-09 20:17] LABS: Prostate Specific Antigen 0.426 ng/mL (0.10-4.00)
[2023-10-09 20:18] LABS: TSH w/ Reflex to FT4 2.52 uIU/mL (0.47-4.68)
[2023-10-09 20:30] LABS: Erythrocyte Sedimentation Rate 7 MM/HR (0-15)
[2023-10-16 16:49] LABS: ANA Screen, IFA Negative (.)
== END ==
PROVIDERS: PCP Physician Assistant Medical; Visit Provider Physician Assistant Medical
DX: Z12.5 Encounter for screening for malignant neoplasm of prostate (principal); E87.6 Hypokalemia; K56.609 Unspecified intestinal obstruction, unspecified as to partial versus complete obstruction; E83.42 Hypomagnesemia
CPT/HCPCS: 80053; 80061; 84153; 84443; 84550; 85025; 85651; 86038; 86140; 86430

== ENCOUNTER → 2024-04-27 14:28 | Outpatient (CLI) | payer OTHER, SELFPAY ==
[2019-05-06 20:29] VITALS: BMI 21.4
[2024-04-27 19:25] LABS: Add Manual Diff / Slide Review NO; Basophils Absolute Auto 0 /uL (0-100); Basophils Percent Auto 0.5 % (0-2); Eosinophils Absolute Auto 100 /uL (0-450); Hematocrit 45.4 % (41-53); Hemoglobin 15.7 g/dL (13.5-17.5); Lymphocytes Absolute Auto 1600 /uL (1100-4500); Mean Corpuscular HGB Conc 34.6 % (30-36); Mean Corpuscular Hemoglobin 32.4 PG (26-34); Mean Corpuscular Volume 93.7 fL (80-100); Monocytes Absolute Auto 700 /uL (0-900); Monocytes Percent Auto 7.7 % (3-14); Neutrophils Absolute Auto 6400 /uL (1500-7000); Neutrophils Percent Auto 72.8 % (50-75); Platelet Count 280 X10^3/uL (150-400); Red Blood Cell Count 4.85 X10^6/uL (4.5-5.9); Red Cell Distribution Width 13.8 % (11.6-14.8); White Blood Cell Count 8.8 X10^3/uL (4.5-11.0)
[2024-04-27 19:39] LABS: Alanine Aminotransferase 42 IU/L (<50); Albumin 4.6 g/dL (3.5-5.0); Albumin Globulin Ratio 1.9 (1.0-2.8); Alkaline Phosphatase 88 U/L (38-126); Aspartate Aminotransferase 32 IU/L (17-59); BUN Creatinine Ratio 19.1 (6-22); Bilirubin Total 0.7 mg/dL (0.2-1.3); Blood Urea Nitrogen 17 mg/dL (9-20); Calcium 9.7 mg/dL (8.4-10.2); Carbon Dioxide 25 mmol/L (22-32); Chloride 104 mmol/L (98-107); Estimated Glomerular Filt Rate > 60 mL/min (>60); Globulin 2.4 g/dL (1.7-4.1); Glucose 91 mg/dL (70-100); HEMOLYSIS < 15 (0-50); Potassium 4.1 mmol/L (3.4-5.1); Sodium 137 mmol/L (137-145)
[2024-04-27 19:44] LABS: Erythrocyte Sedimentation Rate 3 MM/HR (0-15)
== END ==
PROVIDERS: PCP Physician Assistant Medical; Visit Provider Internal Medicine Rheumatology
DX: L40.50 Arthropathic psoriasis, unspecified (principal)
CPT/HCPCS: 80053; 85025; 85651

== ENCOUNTER → 2025-05-19 13:55 | Outpatient (CLI) | payer OTHER, SELFPAY ==
[2019-05-06 20:29] VITALS: BMI 21.4
[2025-05-19 18:52] LABS: Add Manual Diff / Slide Review NO; Hematocrit 46.8 % (41-53); Hemoglobin 16.3 g/dL (13.5-17.5); Lymphocytes Absolute Auto 2000 /uL (1100-4500); Mean Corpuscular HGB Conc 34.9 % (30-36); Mean Corpuscular Hemoglobin 32.3 PG (26-34); Mean Corpuscular Volume 92.6 fL (80-100); Platelet Count 275 X10^3/uL (150-400)
[2025-05-19 18:58] LABS: Alanine Aminotransferase 40 IU/L (<50); Albumin 4.8 g/dL (3.5-5.0); Albumin Globulin Ratio 1.7 (1.0-2.8); Alkaline Phosphatase 83 U/L (38-126); Blood Urea Nitrogen 13 mg/dL (9-20); Calcium 9.6 mg/dL (8.4-10.2); Carbon Dioxide 27 mmol/L (22-32); Chloride 100 mmol/L (98-107); Estimated Glomerular Filt Rate > 60 mL/min (>60); Globulin 2.8 g/dL (1.7-4.1); Glucose 88 mg/dL (70-99); HEMOLYSIS < 15 (0-50); Potassium 4.2 mmol/L (3.4-5.1); Sodium 140 mmol/L (137-145); Total Protein 7.6 g/dL (6.3-8.2)
== END ==
PROVIDERS: PCP Physician Assistant Medical; Visit Provider Internal Medicine Rheumatology
DX: L40.50 Arthropathic psoriasis, unspecified (principal)
CPT/HCPCS: 80053; 85025; 85651